=== PATIENT | male | born 1985 | race Two or more races ===

== ENCOUNTER 2019-05-16 07:10 | Emergency (ER) | payer MEDICAID ==
[2019-05-16 07:48] LABS: BILIRUBIN,URINE NEGATIVE (NEGATIVE); GLUCOSE, URINE (UA) NEGATIVE (NEGATIVE); KETONES,URINE (UA) NEGATIVE (NEGATIVE); LEUKOCYTE ESTERASE, URINE NEGATIVE (NEGATIVE); NITRITE,URINE NEGATIVE (NEGATIVE); OCCULT BLOOD,URINE NEGATIVE (NEGATIVE); PH,URINE 5.5 PH (5.0-7.5); PROTEIN,URINE NEGATIVE (NEGATIVE); UROBILINOGEN,URINE 0.2 (NORMAL) E.U./dL (NORMAL)
[2019-05-16 07:50] LABS: CLARITY,URINE CLEAR (CLEAR)
[2019-05-16 07:57] LABS: BASOPHILS # (AUTO) 0.1 10^3/uL (0.0-0.1); BASOPHILS % (AUTO) 0.6 %; EOSINOPHILS # (AUTO) 0.3 10^3/uL (0.0-0.7); EOSINOPHILS % (AUTO) 3.2 %; HGB - HEMOGLOBIN 15.7 g/dL (14.0-18.0); LYMPHOCYTES # (AUTO) 2.8 10^3/uL (1.5-3.5); LYMPHOCYTES % (AUTO) 27.7 %; MEAN CORPUSCULAR HGB CONC 34.2 g/dL (32.0-36.0); MEAN CORPUSCULAR VOLUME 84.7 fL (80.0-94.0); MEAN PLATELET VOLUME 9.7 fL (7.4-11.4); MONOCYTES # (AUTO) 0.7 10^3/uL (0.0-1.0); NEUTROPHILS # (AUTO) 6.1 10^3/uL (1.5-6.6); NEUTROPHILS % (AUTO) 60.9 %; PLT - PLATELET COUNT 317 10^3/uL (130-450); RED BLOOD COUNT 5.42 10^6/uL (4.70-6.10); RED CELL DISTRIBUTION WIDTH 12.7 % (12.0-15.0)
[2019-05-16] MEDS ORDERED: SODIUM CHLORIDE 0.9% 1,000 ML IV ONE (08:04)
[2019-05-16] MEDS ORDERED: KETOROLAC 30 MG/ML VIAL IVP STA (08:04)
[2019-05-16] MEDS ORDERED: ONDANSETRON 4 MG/2 ML VIAL IVP STA (08:05)
--- NOTE | 2019-05-16 08:07 | ED Physician Documentation ---
PD HPI ABD PAIN - Stated complaint Stated Complaint: ABD PAIN - Chief complaint Chief Complaint: Abd Pain - History obtained from History obtained from: Patient, Family - History of Present Illness Timing - onset: How many days ago (2) Timing - duration: Days (2) Timing - details: Abrupt onset, Still present Quality: Sharp, Pain Location: LUQ, LLQ Radiation: Left flank Improved by: Other (standing) Worsened by: Position Associated symptoms: Nausea. No: Fever, Vomiting, Diarrhea, Constipation Similar symptoms before: Diagnosis (kidney stone) Recently seen: Not recently seen - Additional information Additional information: 34-year-old male with a history of kidney stone in both kidneys requiring lithotripsy and stent placement has developed acute left flank pain radiating down into his groin and relieved by standing partially and worsen by certain positions. The patient states that his pain is similar but different to what is had from prior kidney stone. He has had 8 mm stone previously requiring lithotripsy. Review of Systems Constitutional: denies: Fever Eyes: denies: Decreased vision Ears: denies: Ear pain Nose: denies: Congestion Throat: denies: Sore throat Cardiac: denies: Chest pain / pressure, Palpitations Respiratory: denies: Dyspnea, Cough GI: reports: Abdominal Pain, Nausea. denies: Vomiting, Constipation, Diarrhea : denies: Dysuria, Frequency PD PAST MEDICAL HISTORY - Past Medical History Cardiovascular: None Respiratory: None Neuro: None Endocrine/Autoimmune: None GI: Crohn's disease : Kidney stones HEENT: None Psych: None Derm: None - Past Surgical History General: Cholecystectomy Ortho: Rotator cuff repair, Arthroscopic surgery - Present Medications Home Medications: Ambulatory Orders Medication Instructions Recorded Confirmed Ondansetron Odt [Zofran] 4 mg TL Q6H PRN #10 tablet 05/16/19 Oxycodone HCl/Acetaminophen 1 - 2 each PO Q6H PRN #14 tablet 05/16/19 [Percocet 5-325 mg Tablet] Tamsulosin HCl [Flomax] 0.4 mg PO DAILY #7 cap.er.24h 05/16/19 - Allergies Allergies/Adverse Reactions: Allergies Allergy/AdvReac Type Severity Reaction Status Date / Time codeine AdvReac Unknown Verified 05/16/19 07:22 cyclobenzaprine AdvReac Cramps Verified 05/16/19 07:22 [From Flexeril] morphine AdvReac Cramps Verified 05/16/19 07:22 - Social History Does the pt smoke?: No Smoking Status: Never smoker Does the pt drink ETOH?: No Does the pt have substance abuse?: No - Immunizations Immunizations: TDAP current <10years PD ED PE NORMAL - Vitals Vital signs reviewed: Yes (hypertensive ) - General General: Alert and oriented X 3, Well developed/nourished, Other (Appears to be in pain with medicaid biller tone flattened affect) - HEENT HEENT: Atraumatic, PERRL, EOMI - Neck Neck: Supple, no meningeal sign - Cardiac Cardiac: RRR, No murmur - Respiratory Respiratory: No respiratory distress, Clear bilaterally - Abdomen Abdomen: Normal bowel sounds, Soft, Non tender, Non distended, No organomegaly - Back Back: No CVA TTP, No spinal TTP - Derm Derm: Normal color, Warm and dry, No rash - Extremities Extremities: No deformity, No edema - Neuro Neuro: Alert and oriented X 3, senior net c developer 2-12 intact, No motor deficit, No sensory deficit, Normal speech Eye Opening: Spontaneous Motor: Obeys Commands Verbal: Oriented GCS Score: 15 - Psych Psych: Normal mood, Normal affect Results - Vitals Vitals: Vital Signs - 24 hr 05/16/19 05/16/19 05/16/19 07:15 07:56 08:51 Temperature 36.8 C 36.8 C Heart Rate 100 78 97 Respiratory 18 16 16 Rate Blood Pressure 159/109 H 158/103 H 147/92 H O2 Saturation 100 99 98 Oxygen O2 Source Room air - Labs Labs: Laboratory Tests 05/16/19 05/16/19 05/16/19 07:40 07:45 07:45 WBC 10.0 RBC 5.42 Hgb 15.7 Hct 45.9 MCV 84.7 MCH 29.0 MCHC 34.2 RDW 12.7 Plt Count 317 MPV 9.7 Neut # (Auto) 6.1 Lymph # (Auto) 2.8 [place] # (Auto) 0.7 Eos # (Auto) 0.3 Baso # (Auto) 0.1 Absolute Nucleated RBC 0.00 Nucleated RBC % 0.0 Sodium 139 Potassium 3.6 Chloride 105 Carbon Dioxide 25 Anion Gap 9.0 BUN 20 Creatinine 1.0 Estimated GFR (MDRD) 86 L Glucose 109 H Calcium 9.2 Total Bilirubin 0.6 AST 19 ALT 29 Alkaline Phosphatase 66 Total Protein 7.3 Albumin 4.2 Globulin 3.1 Albumin/Globulin Ratio 1.4 Lipase 39 Urine Color YELLOW Urine Clarity CLEAR Urine pH 5.5 Ur Specific [place] >=1.030 H Urine Protein NEGATIVE Urine Glucose (UA) NEGATIVE Urine Ketones NEGATIVE Urine Occult Blood NEGATIVE Urine Nitrite NEGATIVE Urine Bilirubin NEGATIVE Urine Urobilinogen 0.2 (NORMAL) Ur Leukocyte Esterase NEGATIVE Ur Microscopic Review NOT INDICATED Urine Culture Comments NOT INDICATED - Rads (name of study) CT ab/pel Radiology: Prelim report reviewed (Impression: 1. Mild left hydro-ureteral nephrosis down to a 10 x 12 mm calcification at L2 level. 2 Nonobstructing right renal calcifications 5 and 9 mm), EMP read indepedently, See rad report Procedures - Bedside sono Bedside sono by EMP: These bedside ultrasound the left kidney is imaged it is sonographically nontender and there is hydronephrosis present. PD MEDICAL DECISION MAKING - ED course Complexity details: reviewed results, re-evaluated patient, considered differential, d/w patient, d/w family ED course: 34-year-old male with history of kidney stone has acute left flank pain with evidence of hydronephrosis on bedside ultrasound. An IV is begun he is administered saline Toradol and Zofran and a CT scan of the abdomen pelvis is undertaken. Departure - Departure Disposition: 01 Home, Self Care Clinical Impression: Ureterolithiasis Condition: Stable Instructions: ED Stone Renal W Colic Follow-Up: Jeanie Mansfield MD [Physician No Access] - Zuleyma Augustine MD [Provider Admit Priv/Credential] - Prescriptions: Ondansetron Odt [Zofran] 4 mg TL Q6H PRN #10 tablet PRN Reason: Nausea / Vomiting Oxycodone HCl/Acetaminophen [Percocet 5-325 mg Tablet] 1 - 2 each PO Q6H PRN #14 tablet PRN Reason: pain Tamsulosin HCl [Flomax] 0.4 mg PO DAILY #7 cap.er.24h Forms: Activity restrictions
[2019-05-16 08:11] LABS: ALBUMIN 4.2 g/dL (3.2-5.5); ALBUMIN/GLOBULIN RATIO 1.4 (1.0-2.2); BILIRUBIN,TOTAL 0.6 mg/dL (0.2-1.0); CALCIUM 9.2 mg/dL (8.5-10.3); TOTAL PROTEIN 7.3 g/dL (6.7-8.2)
--- NOTE | 2019-05-16 08:46 | CT Report ---
Reason: L flank pain with hydro on bedside Procedure Date: 05/16/2019 Accession Number: [id number] / [id number] Procedure: CT - Abdomen/Pelvis WO CPT Code: FULL RESULT: EXAM: CT ABDOMEN AND PELVIS EXAM DATE: 05/16/2019 08:29 AM. CLINICAL HISTORY: L flank pain with hydro on bedside. COMPARISONS: None. TECHNIQUE: Routine helical CT imaging was performed through the abdomen and pelvis. IV contrast: None. Enteric contrast: No. Reconstructions: Coronal and sagittal. In accordance with CT protocol optimization, one or more of the following dose reduction techniques were utilized for this exam: automated exposure control, adjustment of mA and/or KV based on patient size, or use of iterative reconstructive technique. FINDINGS: Lung Bases: Small hiatal hernia Liver: Normal. No masses. Gallbladder/Bile Ducts: Post cholecystectomy Spleen: Normal. Pancreas: Normal. Adrenal Glands: Normal. Kidneys: Right kidney: Nonobstructing calcifications 9 mm lower pole, 5 mm midpole. Left kidney: Mild hydroureteronephrosis down to a 10 x 12 mm calcification at L2 level. Peritoneal Cavity/Bowel: Tiny fat-containing umbilical hernia. No free fluid, free air or adenopathy. No masses or acute inflammatory process. The appendix is well visualized and normal. Pelvic Organs: Normal. The bladder and visualized pelvic organs are within normal limits. Vasculature: No aneurysms or other significant abnormality. Bones: No significant abnormality. Bone islands pelvis Other: None. IMPRESSION: 1. Mild left hydroureteronephrosis down to a 10 x 12 mm calcification at L2 level. 2. Nonobstructing right renal calcification 5 mm and 9 mm RADIA
[2019-05-16] MEDS ORDERED: HYDROmorphone 1 MG/ML CARPUJECT IVP STA (08:52)
[2019-05-16] MEDS ORDERED: DEXAMETHASONE 10 MG/ML VIAL IVP STA (08:52)
[2019-05-16 09:49] VITALS: BP 145/93
== END 2019-05-16 09:48 | disposition home or self-care (01) ==
LOC: ED 07:10
DX: N13.2 Hydronephrosis with renal and ureteral calculous obstruction (principal)
CPT/HCPCS: 36415; 74176; 80053; 81003; 83690; 85025; 96361; 96374; 96375; 99284; 99285; J1170; 81001; 87086

== ENCOUNTER 2019-05-21 15:01 | Emergency (ER) | payer MEDICAID ==
[2019-05-21] MEDS ORDERED: LIDOCAINE-MPF 2% 9 ML in SODIUM CHLORIDE 0.9% 50 ML IV STA (15:46)
[2019-05-21] MEDS ORDERED: KETOROLAC 30 MG/ML VIAL IVP STA (15:46)
[2019-05-21] MEDS ORDERED: SODIUM CHLORIDE 0.9% 1,000 ML IV ONE (15:47)
[2019-05-21] MEDS ORDERED: ONDANSETRON 4 MG/2 ML VIAL IVP STA (15:47)
[2019-05-21 15:52] LABS: BASOPHILS # (AUTO) 0.1 10^3/uL (0.0-0.1); BASOPHILS % (AUTO) 0.5 %; EOSINOPHILS # (AUTO) 0.3 10^3/uL (0.0-0.7); EOSINOPHILS % (AUTO) 2.9 %; HGB - HEMOGLOBIN 15.7 g/dL (14.0-18.0); LYMPHOCYTES # (AUTO) 2.4 10^3/uL (1.5-3.5); LYMPHOCYTES % (AUTO) 24.3 %; MEAN CORPUSCULAR HEMOGLOBIN 28.9 pg (27.0-31.0); MEAN CORPUSCULAR HGB CONC 34.2 g/dL (32.0-36.0); MEAN CORPUSCULAR VOLUME 84.5 fL (80.0-94.0); MEAN PLATELET VOLUME 9.9 fL (7.4-11.4); MONOCYTES # (AUTO) 0.5 10^3/uL (0.0-1.0); MONOCYTES % (AUTO) 4.6 %; NEUTROPHILS # (AUTO) 6.6 10^3/uL (1.5-6.6); NEUTROPHILS % (AUTO) 67.3 %; PLT - PLATELET COUNT 300 10^3/uL (130-450); RED BLOOD COUNT 5.43 10^6/uL (4.70-6.10); RED CELL DISTRIBUTION WIDTH 12.9 % (12.0-15.0); WHITE BLOOD COUNT 9.8 x10^3/uL (4.8-10.8)
[2019-05-21 15:53] LABS: BILIRUBIN,URINE NEGATIVE (NEGATIVE); GLUCOSE, URINE (UA) NEGATIVE (NEGATIVE); KETONES,URINE (UA) NEGATIVE (NEGATIVE); LEUKOCYTE ESTERASE, URINE NEGATIVE (NEGATIVE); NITRITE,URINE NEGATIVE (NEGATIVE); OCCULT BLOOD,URINE NEGATIVE (NEGATIVE); PH,URINE 6.5 PH (5.0-7.5); PROTEIN,URINE NEGATIVE (NEGATIVE); UROBILINOGEN,URINE 0.2 (NORMAL) E.U./dL (NORMAL)
[2019-05-21 15:58] LABS: CLARITY,URINE CLEAR (CLEAR)
[2019-05-21 16:04] LABS: ALBUMIN 4.3 g/dL (3.2-5.5); ALBUMIN/GLOBULIN RATIO 1.3 (1.0-2.2); BILIRUBIN,TOTAL 0.8 mg/dL (0.2-1.0); CALCIUM 9.3 mg/dL (8.5-10.3); CREATININE 0.9 mg/dL (0.6-1.2); TOTAL PROTEIN 7.5 g/dL (6.7-8.2)
[2019-05-21] MEDS ORDERED: HYDROmorphone 1 MG/ML CARPUJECT IVP STA (16:34)
--- NOTE | 2019-05-21 17:47 | ED Physician Documentation ---
History of Present Illness - Stated complaint Stated Complaint: LOWER BACK PX - Chief complaint Chief Complaint: Abd Pain - History obtained from History obtained from: Patient - History of Present Illness Timing: How many weeks ago (1) Pain level max: 10 Pain level now: 10 - Additonal information Additional information: Left flank pain. Scheduled to see urology on Wednesday. No fevers. Nausea but no vomiting. States pain is not controlled. Diagnosed with a kidney stone, 10 x 12 mm. Has had lithotripsy in the past. Nothing makes it better or worse. Review of Systems Constitutional: denies: Fever Throat: denies: Sore throat Cardiac: denies: Chest pain / pressure Respiratory: denies: Cough GI: reports: Nausea. denies: Abdominal Pain, Vomiting Skin: denies: Rash Musculoskeletal: denies: Neck pain, Back pain Neurologic: denies: Headache PD PAST MEDICAL HISTORY - Past Medical History Past Medical History: Yes Cardiovascular: None Respiratory: None Neuro: None Endocrine/Autoimmune: None GI: Crohn's disease : Kidney stones HEENT: None Psych: None Derm: None - Past Surgical History Past Surgical History: Yes General: Cholecystectomy Ortho: Rotator cuff repair, Arthroscopic surgery - Present Medications Home Medications: Ambulatory Orders Medication Instructions Recorded Confirmed Ondansetron Odt [Zofran] 4 mg TL Q6H PRN #10 tablet 05/16/19 Oxycodone HCl/Acetaminophen 1 - 2 each PO Q6H PRN #14 tablet 05/16/19 [Percocet 5-325 mg Tablet] Tamsulosin HCl [Flomax] 0.4 mg PO DAILY #7 cap.er.24h 05/16/19 HYDROmorphone [Dilaudid] 2 mg PO Q4H PRN #14 tablet 05/21/19 Promethazine [Phenergan] 25 mg PO Q6H PRN #10 tab 05/21/19 - Allergies Allergies/Adverse Reactions: Allergies Allergy/AdvReac Type Severity Reaction Status Date / Time codeine AdvReac Unknown Verified 05/16/19 07:22 cyclobenzaprine AdvReac Cramps Verified 05/16/19 07:22 [From Flexeril] morphine AdvReac Cramps Verified 05/16/19 07:22 - Social History Does the pt smoke?: No Smoking Status: Never smoker Does the pt drink ETOH?: No Does the pt have substance abuse?: No - Immunizations Immunizations: TDAP current <10years PD ED PE NORMAL - Vitals Vital signs reviewed: Yes - General General: Alert and oriented X 3, No acute distress, Well developed/nourished - HEENT HEENT: PERRL, Moist mucous membranes - Neck Neck: Supple, no meningeal sign - Cardiac Cardiac: RRR, Strong equal pulses - Respiratory Respiratory: No respiratory distress, Clear bilaterally - Abdomen Abdomen: Soft, Non tender, Non distended - Back Back: No CVA TTP, No spinal TTP - Derm Derm: Warm and dry - Extremities Extremities: No edema - Neuro Neuro: Alert and oriented X 3 - Psych Psych: Normal mood, Normal affect Results - Vitals Vitals: Vital Signs - 24 hr 05/21/19 05/21/19 15:09 17:54 Temperature 37.1 C 37 C Heart Rate 104 H 100 Respiratory 18 16 Rate Blood Pressure 149/94 H 153/78 H O2 Saturation 97 96 Oxygen O2 Source Room air - Labs Labs: Laboratory Tests 05/21/19 05/21/19 05/21/19 15:28 15:28 15:30 WBC 9.8 RBC 5.43 Hgb 15.7 Hct 45.9 MCV 84.5 MCH 28.9 MCHC 34.2 RDW 12.9 Plt Count 300 MPV 9.9 Neut # (Auto) 6.6 Lymph # (Auto) 2.4 [place] # (Auto) 0.5 Eos # (Auto) 0.3 Baso # (Auto) 0.1 Absolute Nucleated RBC 0.00 Nucleated RBC % 0.0 Sodium 138 Potassium 3.5 Chloride 99 L Carbon Dioxide 27 Anion Gap 12.0 BUN 13 Creatinine 0.9 Estimated GFR (MDRD) 97 Glucose 139 H Calcium 9.3 Total Bilirubin 0.8 AST 22 ALT 28 Alkaline Phosphatase 66 Total Protein 7.5 Albumin 4.3 Globulin 3.2 Albumin/Globulin Ratio 1.3 Lipase 41 Urine Color YELLOW Urine Clarity CLEAR Urine pH 6.5 Ur Specific [place] 1.015 Urine Protein NEGATIVE Urine Glucose (UA) NEGATIVE Urine Ketones NEGATIVE Urine Occult Blood NEGATIVE Urine Nitrite NEGATIVE Urine Bilirubin NEGATIVE Urine Urobilinogen 0.2 (NORMAL) Ur Leukocyte Esterase NEGATIVE Ur Microscopic Review NOT INDICATED Urine Culture Comments NOT INDICATED PD MEDICAL DECISION MAKING - ED course Complexity details: reviewed old records, reviewed results, re-evaluated patient, considered differential, d/w patient, d/w family ED course: 34-year-old male presents the emergency department with a known left-sided ureteral stone 10 x 12 mm. Pain not controlled at home. Pain is well controlled here. No signs of infection. I discussed calling urology for him but he would like to go home and keep his appointment on Wednesday. He is welcome to return if he changes his mind. No evidence of sepsis. Patient and family counseled regarding signs and symptoms for which I believe and urgent re- evaluation would be necessary. Patient with good understanding of and agreement to plan and is comfortable going home at this time This document was made in part using voice recognition software. While efforts are made to proofread this document, sound alike and grammatical errors may occur. Departure - Departure Disposition: Home, Self Care Clinical Impression: Ureterolithiasis Condition: Good Instructions: ED Stone Renal W Colic Follow-Up: your,doctor in 2 days [Other] Prescriptions: HYDROmorphone [Dilaudid] 2 mg PO Q4H PRN #14 tablet PRN Reason: flank pain Promethazine [Phenergan] 25 mg PO Q6H PRN #10 tab PRN Reason: Nausea / Vomiting Comments: Return if you worsen. Follow-up with urology on Wednesday as scheduled. Return especially for uncontrolled pain or fevers or vomiting. Discharge Date/Time: 05/21/19 18:14
[2019-05-21 17:55] VITALS: BP 153/78
== END 2019-05-21 18:14 | disposition home or self-care (01) ==
LOC: ED 15:01
DX: N20.1 Calculus of ureter (principal)
CPT/HCPCS: 36415; 80053; 81003; 83690; 85025; 96361; 96365; 96375; 99284; J1170; J7040; 81001; 87086

== ENCOUNTER 2019-05-23 11:25 | Emergency (ER) | payer MEDICAID ==
[2019-05-23 11:56] LABS: BASOPHILS % (AUTO) 0.4 %; EOSINOPHILS # (AUTO) 0.3 10^3/uL (0.0-0.7); EOSINOPHILS % (AUTO) 2.7 %; HGB - HEMOGLOBIN 15.8 g/dL (14.0-18.0); LYMPHOCYTES # (AUTO) 2.5 10^3/uL (1.5-3.5); LYMPHOCYTES % (AUTO) 25.4 %; MEAN CORPUSCULAR HEMOGLOBIN 28.8 pg (27.0-31.0); MEAN CORPUSCULAR HGB CONC 33.9 g/dL (32.0-36.0); MEAN CORPUSCULAR VOLUME 84.9 fL (80.0-94.0); MEAN PLATELET VOLUME 9.5 fL (7.4-11.4); MONOCYTES # (AUTO) 0.7 10^3/uL (0.0-1.0); MONOCYTES % (AUTO) 6.7 %; NEUTROPHILS # (AUTO) 6.4 10^3/uL (1.5-6.6); NEUTROPHILS % (AUTO) 64.3 %; PLT - PLATELET COUNT 290 10^3/uL (130-450); RED BLOOD COUNT 5.49 10^6/uL (4.70-6.10); RED CELL DISTRIBUTION WIDTH 12.8 % (12.0-15.0); WHITE BLOOD COUNT 9.9 x10^3/uL (4.8-10.8)
[2019-05-23 12:11] LABS: ALBUMIN 4.2 g/dL (3.2-5.5); ALBUMIN/GLOBULIN RATIO 1.3 (1.0-2.2); BILIRUBIN,TOTAL 0.6 mg/dL (0.2-1.0); CALCIUM 9.8 mg/dL (8.5-10.3); CREATININE 0.8 mg/dL (0.6-1.2); TOTAL PROTEIN 7.5 g/dL (6.7-8.2)
[2019-05-23] MEDS ORDERED: ONDANSETRON 4 MG/2 ML VIAL IVP STA (13:30)
[2019-05-23] MEDS ORDERED: HYDROmorphone 1 MG/ML CARPUJECT IVP STA ×3 (13:30→15:11)
[2019-05-23] MEDS ORDERED: SODIUM CHLORIDE 0.9% 1,000 ML IV ONE (13:30)
[2019-05-23] MEDS ORDERED: KETOROLAC 30 MG/ML VIAL IVP STA (13:30)
--- NOTE | 2019-05-23 13:32 | ED Physician Documentation ---
PD HPI ABD PAIN - Stated complaint Stated Complaint: SIDE PX - Chief complaint Chief Complaint: Abd Pain - History obtained from History obtained from: Patient - History of Present Illness Timing - onset: Other (34-year-old gentleman with history of Crohn's and renal colic, last p.o. intake at 930 this morning, he is been having trouble with a left flank pain caused by a stone for the last week. He is been seen here twice so far, pain medications have not been helping too much. He had a CAT scan on the of this month showing a 10 x 12 m millimeter proximal ureteral stone on the left. He is nauseous.) Review of Systems Ten Systems: 10 systems reviewed and negative Constitutional: denies: Fever, Chills Cardiac: denies: Chest pain / pressure, Palpitations Respiratory: denies: Dyspnea, Cough PD PAST MEDICAL HISTORY - Past Medical History Cardiovascular: None Respiratory: None Neuro: None Endocrine/Autoimmune: None GI: Crohn's disease : Kidney stones HEENT: None Psych: None Derm: None - Past Surgical History Past Surgical History: Yes General: Cholecystectomy Ortho: Rotator cuff repair, Arthroscopic surgery - Present Medications Home Medications: Ambulatory Orders Medication Instructions Recorded Confirmed Ondansetron Odt [Zofran] 4 mg TL Q6H PRN #10 tablet 05/16/19 Oxycodone HCl/Acetaminophen 1 - 2 each PO Q6H PRN #14 tablet 05/16/19 [Percocet 5-325 mg Tablet] Tamsulosin HCl [Flomax] 0.4 mg PO DAILY #7 cap.er.24h 05/16/19 HYDROmorphone [Dilaudid] 2 mg PO Q4H PRN #14 tablet 05/21/19 Promethazine [Phenergan] 25 mg PO Q6H PRN #10 tab 05/21/19 - Allergies Allergies/Adverse Reactions: Allergies Allergy/AdvReac Type Severity Reaction Status Date / Time codeine AdvReac Unknown Verified 05/16/19 07:22 cyclobenzaprine AdvReac Cramps Verified 05/16/19 07:22 [From Flexeril] morphine AdvReac Cramps Verified 05/23/19 11:32 - Social History Does the pt smoke?: No Smoking Status: Never smoker Does the pt drink ETOH?: No Does the pt have substance abuse?: No - Family History Family history: reports: Non contributory - Immunizations Immunizations: TDAP current <10years PD ED PE NORMAL - Vitals Vital signs reviewed: Yes - General General: Alert and oriented X 3, No acute distress - HEENT HEENT: PERRL, EOMI - Neck Neck: Supple, no meningeal sign, No bony TTP - Cardiac Cardiac: RRR, No murmur - Respiratory Respiratory: No respiratory distress, Clear bilaterally - Abdomen Abdomen: Soft, Non tender - Back Back: Other (L flank TTP) - Derm Derm: Normal color, Warm and dry - Extremities Extremities: No edema, No calf tenderness / cord - Neuro Neuro: Alert and oriented X 3, Normal speech Results - Vitals Vitals: Vital Signs - 24 hr 05/23/19 05/23/19 11:31 13:52 Temperature 36.8 C Heart Rate 101 H 96 Respiratory 20 16 Rate Blood Pressure 175/108 H 132/109 H O2 Saturation 99 96 Oxygen O2 Source Room air - Labs Labs: Laboratory Tests 05/23/19 05/23/19 05/23/19 11:49 11:49 13:31 WBC 9.9 RBC 5.49 Hgb 15.8 Hct 46.6 MCV 84.9 MCH 28.8 MCHC 33.9 RDW 12.8 Plt Count 290 MPV 9.5 Neut # (Auto) 6.4 Lymph # (Auto) 2.5 [place] # (Auto) 0.7 Eos # (Auto) 0.3 Baso # (Auto) 0.0 Absolute Nucleated RBC 0.00 Nucleated RBC % 0.0 Sodium 140 Potassium 3.9 Chloride 105 Carbon Dioxide 27 Anion Gap 8.0 BUN 15 Creatinine 0.8 Estimated GFR (MDRD) 111 Glucose 120 H Calcium 9.8 Total Bilirubin 0.6 AST 19 ALT 28 Alkaline Phosphatase 65 Total Protein 7.5 Albumin 4.2 Globulin 3.3 Albumin/Globulin Ratio 1.3 Lipase 42 Urine Color YELLOW Urine Clarity CLOUDY Urine pH 7.0 Ur Specific [place] 1.020 Urine Protein NEGATIVE Urine Glucose (UA) NEGATIVE Urine Ketones NEGATIVE Urine Occult Blood LARGE H Urine Nitrite NEGATIVE Urine Bilirubin NEGATIVE Urine Urobilinogen 0.2 (NORMAL) Ur Leukocyte Esterase NEGATIVE Urine RBC TNTC H Urine WBC 0-3 Ur Squamous Epith Cells RARE Squamous Urine Bacteria Many H Urine Sperm PRESENT Ur Microscopic Review INDICATED Urine Culture Comments INDICATED PD MEDICAL DECISION MAKING - ED course ED course: 34-year-old gentleman with a known large left ureteral stone measuring 10 x 12 mm presents for the third time in a week with intractable pain. Pain med Was ordered and we called [facility] for potential transfer, they were full and we subsequently called [facility]. I spoke with FLORIN Wen there, she wanted to discuss the case with her urologist and she did. She stated to me at 2:35 PM that she had spoken with Dr. Raines and we could certainly refer the patient to them but they would not accept him in transfer as they "do not take call for us." I discussed with her that the patient has an emergency medical condition as defined by EMTALA (uncontrolled pain) and recommended they reconsider. Dr. Raines subsequently called me back at 242, clarified that they do not take transfers but we could approach this through the hospitalist service through the emergency department. The hospitalist service at [facility] was called. Subsequently accepted by Dr. Ware to the hospitalist service at 2:50 PM and cobras were completed. Needs transfer to higher level of care given intractable renal colic and lack of urology inpatient treatment here. Departure - Departure Disposition: 02 Transfer Acute Care Hosp Clinical Impression: Ureterolithiasis Condition: Fair
[2019-05-23 13:36] LABS: BILIRUBIN,URINE NEGATIVE (NEGATIVE); GLUCOSE, URINE (UA) NEGATIVE (NEGATIVE); KETONES,URINE (UA) NEGATIVE (NEGATIVE); LEUKOCYTE ESTERASE, URINE NEGATIVE (NEGATIVE); NITRITE,URINE NEGATIVE (NEGATIVE); OCCULT BLOOD,URINE LARGE (NEGATIVE); PROTEIN,URINE NEGATIVE (NEGATIVE); UROBILINOGEN,URINE 0.2 (NORMAL) E.U./dL (NORMAL)
[2019-05-23 13:37] LABS: CLARITY,URINE CLOUDY (CLEAR)
[2019-05-23 14:43] LABS: BACTERIA,URINE Many /HPF (None Seen); RBC,URINE TNTC /HPF (0-5); SQUAMOUS EPITHELIAL CELL,UR RARE Squamous (<= Few)
[2019-05-23 14:44] LABS: SPERM,URINE PRESENT
[2019-05-23 15:21] VITALS: BP 140/87
== END 2019-05-23 15:51 | disposition short-term general hospital (02) ==
LOC: ED 11:25
DX: N20.1 Calculus of ureter (principal); Z87.19 Personal history of other diseases of the digestive system
CPT/HCPCS: 36415; 80053; 81001; 83690; 85025; 87086; 96361; 96374; 96375; 96376; 99283; 99285; J1170; 81003

== ENCOUNTER 2019-05-23 15:54 | Outpatient (CLI) | payer MEDICAID | END 2019-05-23 15:55 | disposition short-term general hospital (02) | LOC: EMS 15:54 | PROVIDERS: ATTEND Surgery | DX: N20.0 Calculus of kidney (principal) | CPT/HCPCS: A0425; A0426; A0999 ==

== ENCOUNTER 2019-05-29 18:19 | Outpatient (CLI) | payer MEDICAID | END 2019-05-29 18:20 | disposition short-term general hospital (02) | LOC: EMS 18:19 | PROVIDERS: ATTEND Surgery | DX: R10.9 Unspecified abdominal pain (principal); R11.10 Vomiting, unspecified | CPT/HCPCS: A0425; A0429; A0999 ==

== ENCOUNTER 2019-06-09 08:00 | Outpatient (CLI) | payer MEDICAID ==
[2019-06-09 18:43] LABS: BASOPHILS # (AUTO) 0.1 10^3/uL (0.0-0.1); BASOPHILS % (AUTO) 1.1 %; EOSINOPHILS # (AUTO) 0.7 10^3/uL (0.0-0.7); EOSINOPHILS % (AUTO) 7.5 %; HGB - HEMOGLOBIN 15.4 g/dL (14.0-18.0); LYMPHOCYTES # (AUTO) 2.4 10^3/uL (1.5-3.5); LYMPHOCYTES % (AUTO) 23.9 %; MEAN CORPUSCULAR HEMOGLOBIN 29.4 pg (27.0-31.0); MEAN CORPUSCULAR VOLUME 86.6 fL (80.0-94.0); MEAN PLATELET VOLUME 10.2 fL (7.4-11.4); MONOCYTES # (AUTO) 0.7 10^3/uL (0.0-1.0); MONOCYTES % (AUTO) 6.9 %; NEUTROPHILS # (AUTO) 5.9 10^3/uL (1.5-6.6); NEUTROPHILS % (AUTO) 59.9 %; PLT - PLATELET COUNT 409 10^3/uL (130-450); RED BLOOD COUNT 5.23 10^6/uL (4.70-6.10); RED CELL DISTRIBUTION WIDTH 12.4 % (12.0-15.0); WHITE BLOOD COUNT 9.9 x10^3/uL (4.8-10.8)
[2019-06-09 19:02] LABS: ALBUMIN 4.2 g/dL (3.2-5.5); ALBUMIN/GLOBULIN RATIO 1.3 (1.0-2.2); BILIRUBIN,TOTAL 0.7 mg/dL (0.2-1.0); CALCIUM 9.5 mg/dL (8.5-10.3); TOTAL PROTEIN 7.5 g/dL (6.7-8.2)
== END 2019-06-09 23:59 | disposition home or self-care (01) ==
LOC: LAB.N 08:00
PROVIDERS: ATTEND Family Medicine
DX: N28.9 Disorder of kidney and ureter, unspecified (principal)
CPT/HCPCS: 36415; 80053; 85025

== ENCOUNTER 2019-08-23 19:11 | Outpatient (CLI) | payer MEDICAID ==
--- NOTE | 2019-08-23 20:28 | Ultrasound Report ---
Reason: CALCULUS OF URETER AND KIDNEY Procedure Date: 08/23/2019 Accession Number: [id number] / [id number] Procedure: US - Retroperitoneal CPT Code: Final Report FULL RESULT: EXAM: RENAL ULTRASOUND EXAM DATE: 08/23/2019 07:55 PM. CLINICAL HISTORY: CALCULUS OF URETER AND KIDNEY. COMPARISON: ABDOMEN/PELVIS W/O 05/16/2019 8:22 AM. TECHNIQUE: Real-time scanning was performed with static images obtained. FINDINGS: Right Kidney: 14 cm. Normal echotexture with no shadowing stones, contour-deforming masses, or hydronephrosis. Left Kidney: 13 cm. Normal echotexture with no shadowing stones, contour-deforming masses, or hydronephrosis. Bladder: Bilateral jets seen. The prevoid bladder volume was 220 cc. The postvoid bladder volume was 5 cc. Other: None. IMPRESSION: Negative renal ultrasound. No stones or hydronephrosis seen by ultrasound. RADIA
== END 2019-08-23 19:12 | disposition home or self-care (01) ==
LOC: DI 19:11
PROVIDERS: ATTEND Family Medicine
DX: N20.1 Calculus of ureter (principal); N20.0 Calculus of kidney
CPT/HCPCS: 76770

== ENCOUNTER 2019-09-05 08:00 | Outpatient (CLI) | payer MEDICAID | END 2019-09-05 23:59 | disposition home or self-care (01) | LOC: LAB.R 08:00 | PROVIDERS: ATTEND Physician Assistant Medical | DX: R50.9 Fever, unspecified (principal) | CPT/HCPCS: 87275; 87276 ==

== ENCOUNTER 2020-01-09 17:05 | Emergency (ER) | payer MEDICAID ==
[2020-01-09 17:25] LABS: BILIRUBIN,URINE NEGATIVE (NEGATIVE); CLARITY,URINE CLEAR (CLEAR); GLUCOSE, URINE (UA) NEGATIVE (NEGATIVE); KETONES,URINE (UA) NEGATIVE (NEGATIVE); LEUKOCYTE ESTERASE, URINE NEGATIVE (NEGATIVE); NITRITE,URINE NEGATIVE (NEGATIVE); OCCULT BLOOD,URINE NEGATIVE (NEGATIVE); PROTEIN,URINE NEGATIVE (NEGATIVE); UROBILINOGEN,URINE 0.2 (NORMAL) E.U./dL (NORMAL)
[2020-01-09 17:30] LABS: BASOPHILS # (AUTO) 0.1 10^3/uL (0.0-0.1); BASOPHILS % (AUTO) 0.6 %; EOSINOPHILS # (AUTO) 0.2 10^3/uL (0.0-0.7); EOSINOPHILS % (AUTO) 2.2 %; HGB - HEMOGLOBIN 16.6 g/dL (14.0-18.0); LYMPHOCYTES # (AUTO) 2.3 10^3/uL (1.5-3.5); LYMPHOCYTES % (AUTO) 25.3 %; MEAN CORPUSCULAR HGB CONC 33.7 g/dL (32.0-36.0); MEAN CORPUSCULAR VOLUME 83.1 fL (80.0-94.0); MEAN PLATELET VOLUME 9.5 fL (7.4-11.4); MONOCYTES # (AUTO) 0.7 10^3/uL (0.0-1.0); MONOCYTES % (AUTO) 7.3 %; NEUTROPHILS # (AUTO) 5.8 10^3/uL (1.5-6.6); NEUTROPHILS % (AUTO) 64.2 %; PLT - PLATELET COUNT 302 10^3/uL (130-450); RED BLOOD COUNT 5.92 10^6/uL (4.70-6.10); RED CELL DISTRIBUTION WIDTH 12.7 % (12.0-15.0); WHITE BLOOD COUNT 9.1 x10^3/uL (4.8-10.8)
[2020-01-09 17:43] LABS: ALBUMIN 4.5 g/dL (3.2-5.5); ALBUMIN/GLOBULIN RATIO 1.3 (1.0-2.2); BILIRUBIN,TOTAL 0.9 mg/dL (0.2-1.0); TOTAL PROTEIN 7.9 g/dL (6.7-8.2)
[2020-01-09] MEDS ORDERED: KETOROLAC 30 MG/ML VIAL IVP STA (17:56)
[2020-01-09] MEDS ORDERED: TAMSULOSIN 0.4 MG CAPSULE PO STA (17:57)
--- NOTE | 2020-01-09 18:00 | ED Physician Documentation ---
PD HPI MALE - Stated complaint Stated Complaint: BI LAT FLANK PX - Chief complaint Chief Complaint: Abd Pain - History obtained from History obtained from: Patient (34-year-old patient comes in today with a history of kidney stones bilateral sides that has required lithotripsy in the past and stent placement x4. His last stents were removed approximately 6 months ago, and he has not had any problems with stones since then. He has had a 3-day history of right-sided flank pain, feels like it is a stone moving down again. He has noted some blood in his urine. He has had bouts of chills and nausea with the right flank pain. No other concerns today) Review of Systems Ten Systems: 10 systems reviewed and negative Constitutional: reports: Chills, Sweats. denies: Fever Eyes: reports: Reviewed and negative Ears: reports: Reviewed and negative Nose: reports: Reviewed and negative Throat: reports: Reviewed and negative Cardiac: reports: Reviewed and negative Respiratory: reports: Reviewed and negative GI: reports: Reviewed and negative : reports: Hematuria Skin: reports: Reviewed and negative Musculoskeletal: reports: Reviewed and negative PD PAST MEDICAL HISTORY - Past Medical History Cardiovascular: Hypertension Respiratory: None Neuro: None Endocrine/Autoimmune: None GI: Crohn's disease : Kidney stones HEENT: None Psych: None Musculoskeletal: None Derm: None - Past Surgical History Past Surgical History: Yes General: Cholecystectomy Ortho: Rotator cuff repair, Arthroscopic surgery - Present Medications Home Medications: Ambulatory Orders Medication Instructions Recorded Confirmed No Known Home Medications 01/09/20 01/09/20 - Allergies Allergies/Adverse Reactions: Allergies Allergy/AdvReac Type Severity Reaction Status Date / Time codeine AdvReac Unknown Verified 01/09/20 17:08 cyclobenzaprine AdvReac Cramps Verified 01/09/20 17:08 [From Flexeril] morphine AdvReac Cramps Verified 01/09/20 17:08 - Social History Does the pt smoke?: No Smoking Status: Never smoker Does the pt drink ETOH?: No Does the pt have substance abuse?: No - Immunizations Immunizations are current?: Yes Immunizations: TDAP current <10years PD ED PE NORMAL - General General: Alert and oriented X 3, No acute distress, Well developed/nourished - HEENT HEENT: Atraumatic, PERRL, EOMI, Ears normal, Moist mucous membranes - Neck Neck: Supple, no meningeal sign, No adenopathy - Cardiac Cardiac: RRR, No murmur, No gallop - Respiratory Respiratory: No respiratory distress, Clear bilaterally - Abdomen Abdomen: Normal bowel sounds, Soft, Non tender, Non distended - Back Back: No: No CVA TTP - Derm Derm: Normal color, Warm and dry, No rash - Neuro Neuro: Alert and oriented X 3, addiction therapist 2-12 intact Eye Opening: Spontaneous Motor: Obeys Commands Verbal: Oriented GCS Score: 15 - Psych Psych: Normal mood, Normal affect PD ED PE EXPANDED - Back Back: CVA TTP right Results - Vitals Vitals: Vital Signs - 24 hr 01/09/20 01/09/20 01/09/20 17:08 17:28 19:03 Temperature 36.7 C Heart Rate 96 96 79 Respiratory 18 18 18 Rate Blood Pressure 146/85 H 153/95 H 144/89 H O2 Saturation 98 97 96 Oxygen O2 Source Room air - Labs Labs: Laboratory Tests 01/09/20 01/09/20 01/09/20 17:20 17:22 17:22 WBC 9.1 RBC 5.92 Hgb 16.6 Hct 49.2 MCV 83.1 MCH 28.0 MCHC 33.7 RDW 12.7 Plt Count 302 MPV 9.5 Neut # (Auto) 5.8 Lymph # (Auto) 2.3 [place] # (Auto) 0.7 Eos # (Auto) 0.2 Baso # (Auto) 0.1 Absolute Nucleated RBC 0.00 Nucleated RBC % 0.0 Sodium 139 Potassium 4.0 Chloride 106 Carbon Dioxide 26 Anion Gap 7.0 BUN 18 Creatinine 1.0 Estimated GFR (MDRD) 86 L Glucose 96 Calcium 9.0 Total Bilirubin 0.9 AST 23 ALT 33 Alkaline Phosphatase 62 Total Protein 7.9 Albumin 4.5 Globulin 3.4 Albumin/Globulin Ratio 1.3 Lipase 37 Urine Color YELLOW Urine Clarity CLEAR Urine pH 7.0 Ur Specific [place] 1.020 Urine Protein NEGATIVE Urine Glucose (UA) NEGATIVE Urine Ketones NEGATIVE Urine Occult Blood NEGATIVE Urine Nitrite NEGATIVE Urine Bilirubin NEGATIVE Urine Urobilinogen 0.2 (NORMAL) Ur Leukocyte Esterase NEGATIVE Ur Microscopic Review NOT INDICATED Urine Culture Comments NOT INDICATED - Rads (name of study) No standard instances Radiology: Final report received (Impression: 1 cm nonobstructing left renal calculus. no ureteric calculi or hydronephrosis. ) PD MEDICAL DECISION MAKING - ED course Complexity details: reviewed results, d/w patient ED course: Reviewed the patient's abdominal CT, which was negative for right renal or ureteral stones. There is a 1 cm calculi noted in the left kidney, with no obstruction. The kidneys do not show any hydronephrosis either. Patient's blood work came back normal today did not have an elevated white count, liver enzymes were not elevated INR. His urinalysis came back clean. At this point time unsure what the right flank pain is from. We will have the patient follow- up with his primary care physician later this week for further evaluation. Discussed with the patient when to return to ER, if he develops fevers, worsening right flank pain, noted blood in his urine, worsening chills and fe herman. Departure - Departure Disposition: 01 Home, Self Care Clinical Impression: Acute flank pain Condition: Good Instructions: ED Stone Renal W Colic Comments: Your blood test came back normal today, no elevated white blood cells to indicate an infection. Urinalysis came back as normal. And your CAT scan of your abdomen and pelvis did not show any kidney stones on the right side. You have a 1 cm kidney stone in the left kidney which is not causing any obstruction. Pain control the best you can with Tylenol and the medications you have at home. I want you to follow-up with your primary care physician later this week for further evaluation. Return return to ER if you develop a fever, worsening chills, worsening right flank pain, nausea, vomiting, or blood in your urine.
[2020-01-09] MEDS ORDERED: ONDANSETRON 4 MG/2 ML VIAL IVP STA (18:12)
[2020-01-09] MEDS ORDERED: HYDROmorphone 1 MG/ML CARPUJECT IVP STA ×2 (18:12→19:47)
--- NOTE | 2020-01-09 19:12 | CT Report ---
Reason: kidney stones, right flank pain.PMHX kidney stones Procedure Date: 01/09/2020 Accession Number: [id number] / [id number] Procedure: CT - Abdomen/Pelvis WO CPT Code: Final Report FULL RESULT: EXAM: CT ABDOMEN AND PELVIS (CT KUB) EXAM DATE: 01/09/2020 06:51 PM. CLINICAL HISTORY: Kidney stones, right flank pain. PMHX kidney stones. COMPARISONS: ABDOMEN/PELVIS W/O 05/16/2019 8:22 AM. TECHNIQUE: Routine helical CT imaging was performed through the abdomen and pelvis without intravenous contrast. Lack of intravenous contrast can at times limit scan sensitivity, particularly for the detection of intraparenchymal and vascular pathology. Reconstructions: Coronal and sagittal. In accordance with CT protocol optimization, one or more of the following dose reduction techniques were utilized for this exam: automated exposure control, adjustment of mA and/or KV based on patient size, or use of iterative reconstructive technique. FINDINGS: ABDOMEN: Lung Bases: Incompletely included lower lungs are grossly clear. Heart size is within normal limits. No basilar effusions. Liver: Unremarkable. Gallbladder/Bile Ducts: Status post cholecystectomy. Visualized biliary tree is normal caliber. Spleen: Unremarkable. Pancreas: Unremarkable. Adrenal Glands: Unremarkable. Kidneys: Right kidney: No calculi or hydronephrosis. Left kidney: 1 cm nonobstructing inferior pole calculus. No ureteric calculi or hydronephrosis. Peritoneum/Mesentery/Bowel: No free fluid, free air, or collection. No intestinal obstruction or inflammation. The appendix is within normal limits. Lymph nodes: No mesenteric, periportal, or retroperitoneal lymphadenopathy. PELVIS: The bladder is unremarkable for the degree of distention. Prostate is present. No pelvic lymphadenopathy. Retroperitoneum: Abdominal aorta is nonaneurysmal. Bones: No suspicious osseous lesions. IMPRESSION: 1 cm nonobstructing left renal calculus. No ureteric calculi or hydronephrosis. RADIA
[2020-01-09 20:48] VITALS: BP 162/98
== END 2020-01-09 20:51 | disposition home or self-care (01) ==
LOC: ED 17:05
DX: R10.9 Unspecified abdominal pain (principal); R11.0 Nausea; N20.0 Calculus of kidney; I10 Essential (primary) hypertension; Z87.442 Personal history of urinary calculi; Z87.19 Personal history of other diseases of the digestive system
CPT/HCPCS: 36415; 74176; 80053; 81003; 83690; 85025; 96374; 96375; 96376; 99284; A9270; J1170; 81001; 87086

== ENCOUNTER 2020-04-19 11:30 | Emergency (ER) | payer MEDICAID ==
[2020-04-19 11:53] LABS: BILIRUBIN,URINE NEGATIVE (NEGATIVE); GLUCOSE, URINE (UA) NEGATIVE (NEGATIVE); KETONES,URINE (UA) NEGATIVE (NEGATIVE); LEUKOCYTE ESTERASE, URINE NEGATIVE (NEGATIVE); NITRITE,URINE NEGATIVE (NEGATIVE); OCCULT BLOOD,URINE NEGATIVE (NEGATIVE); PROTEIN,URINE NEGATIVE (NEGATIVE); UROBILINOGEN,URINE 0.2 (NORMAL) E.U./dL (NORMAL)
[2020-04-19 11:55] LABS: CLARITY,URINE CLEAR (CLEAR)
[2020-04-19 12:04] LABS: BASOPHILS # (AUTO) 0.1 10^3/uL (0.0-0.1); BASOPHILS % (AUTO) 0.8 %; EOSINOPHILS # (AUTO) 0.3 10^3/uL (0.0-0.7); EOSINOPHILS % (AUTO) 3.1 %; HGB - HEMOGLOBIN 16.1 g/dL (14.0-18.0); LYMPHOCYTES # (AUTO) 2.5 10^3/uL (1.5-3.5); LYMPHOCYTES % (AUTO) 31.3 %; MEAN CORPUSCULAR HEMOGLOBIN 29.4 pg (27.0-31.0); MEAN CORPUSCULAR HGB CONC 34.3 g/dL (32.0-36.0); MEAN CORPUSCULAR VOLUME 85.9 fL (80.0-94.0); MEAN PLATELET VOLUME 9.8 fL (7.4-11.4); MONOCYTES # (AUTO) 0.6 10^3/uL (0.0-1.0); MONOCYTES % (AUTO) 7.2 %; NEUTROPHILS # (AUTO) 4.6 10^3/uL (1.5-6.6); NEUTROPHILS % (AUTO) 57.2 %; PLT - PLATELET COUNT 303 10^3/uL (130-450); RED BLOOD COUNT 5.47 10^6/uL (4.70-6.10); RED CELL DISTRIBUTION WIDTH 13.1 % (12.0-15.0)
[2020-04-19 12:14] LABS: ALBUMIN 4.5 g/dL (3.2-5.5); ALBUMIN/GLOBULIN RATIO 1.5 (1.0-2.2); BILIRUBIN,TOTAL 0.9 mg/dL (0.2-1.0); CALCIUM 9.4 mg/dL (8.5-10.3); CREATININE 0.9 mg/dL (0.6-1.2); TOTAL PROTEIN 7.6 g/dL (6.7-8.2)
[2020-04-19] MEDS ORDERED: ONDANSETRON ODT 4 MG TABLET TL STA (15:08)
--- NOTE | 2020-04-19 15:08 | ED Physician Documentation ---
PD HPI ABD PAIN - Stated complaint Stated Complaint: R SIDE PX - Chief complaint Chief Complaint: Abd Pain - History obtained from History obtained from: Patient - History of Present Illness Timing - onset: How many days ago (3) Timing - duration: Days (3) Timing - details: Gradual onset, Still present Quality: Cramping, Sharp, Pain Location: RLQ Radiation: Right flank Improved by: Laying still Worsened by: Position, Palpation Similar symptoms before: Diagnosis (kidney stone) Recently seen: Clinic - Additional information Additional information: 35-year-old male with history of Crohn's disease in remission and kidney stones for which he has had to have stents and lithotripsy done has developed some right-sided flank pain. He feels that this is most consistent with what he has had previously with kidney stone. He did not have any blood in his urine. He did have some tenderness on exam and he was referred here to the emergency department for imaging. Review of Systems Constitutional: denies: Fever Eyes: denies: Decreased vision Ears: denies: Ear pain Nose: denies: Congestion Throat: denies: Sore throat Cardiac: denies: Chest pain / pressure, Palpitations Respiratory: denies: Dyspnea, Cough GI: reports: Abdominal Pain, Nausea, Diarrhea : denies: Dysuria, Frequency Skin: denies: Rash Musculoskeletal: denies: Neck pain, Back pain, Extremity pain Neurologic: denies: Generalized weakness, Focal weakness, Numbness PD PAST MEDICAL HISTORY - Past Medical History Cardiovascular: Hypertension Respiratory: None Neuro: None Endocrine/Autoimmune: None GI: Crohn's disease : Kidney stones HEENT: None Psych: None Musculoskeletal: None Derm: None - Past Surgical History Past Surgical History: Yes General: Cholecystectomy Ortho: Rotator cuff repair, Arthroscopic surgery - Present Medications Home Medications: Ambulatory Orders Medication Instructions Recorded Confirmed HYDROcod/ACETAM 5/325 [[place] 5/325] 1 - 2 each PO Q6H PRN #14 tablet 04/19/20 predniSONE [Prednisone] 40 mg PO DAILY #10 tablet 04/19/20 - Allergies Allergies/Adverse Reactions: Allergies Allergy/AdvReac Type Severity Reaction Status Date / Time codeine AdvReac Unknown Verified 04/19/20 11:37 cyclobenzaprine AdvReac Cramps Verified 04/19/20 11:37 [From Flexeril] morphine AdvReac Cramps Verified 04/19/20 11:37 - Social History Does the pt smoke?: No Smoking Status: Never smoker Does the pt drink ETOH?: No Does the pt have substance abuse?: No - Immunizations Immunizations are current?: Yes Immunizations: TDAP current <10years PD ED PE NORMAL - Vitals Vital signs reviewed: Yes (hypertensive ) - General General: Alert and oriented X 3, No acute distress, Well developed/nourished - HEENT HEENT: Atraumatic, PERRL, EOMI - Neck Neck: Supple, no meningeal sign, No bony TTP - Cardiac Cardiac: RRR, No murmur - Respiratory Respiratory: No respiratory distress, Clear bilaterally - Abdomen Abdomen: Soft, Other (tenderness in the right mid abdomen is reproducible. This is above McBurney's and below Mixon's in this patient without a gallbladder. ) - Back Back: No CVA TTP, No spinal TTP - Derm Derm: Normal color, Warm and dry, No rash - Extremities Extremities: No deformity, No edema, No calf tenderness / cord - Neuro Neuro: Alert and oriented X 3, manufacturing development engineer 2-12 intact, No motor deficit, No sensory deficit, Normal speech Eye Opening: Spontaneous Motor: Obeys Commands Verbal: Oriented GCS Score: 15 - Psych Psych: Normal mood, Normal affect Results - Vitals Vitals: Vital Signs - 24 hr 04/19/20 04/19/20 04/19/20 11:36 14:49 17:23 Temperature 36.8 C 36.6 C Heart Rate 86 82 94 Respiratory 20 16 16 Rate Blood Pressure 151/100 H 142/98 H 160/99 H O2 Saturation 99 99 98 Oxygen O2 Source Room air - Labs Labs: Laboratory Tests 04/19/20 04/19/20 04/19/20 11:40 11:58 11:58 WBC 8.0 RBC 5.47 Hgb 16.1 Hct 47.0 MCV 85.9 MCH 29.4 MCHC 34.3 RDW 13.1 Plt Count 303 MPV 9.8 Neut # (Auto) 4.6 Lymph # (Auto) 2.5 [place] # (Auto) 0.6 Eos # (Auto) 0.3 Baso # (Auto) 0.1 Absolute Nucleated RBC 0.00 Nucleated RBC % 0.0 Sodium 139 Potassium 3.9 Chloride 105 Carbon Dioxide 25 Anion Gap 9.0 BUN 20 Creatinine 0.9 Estimated GFR (MDRD) 97 Glucose 95 Calcium 9.4 Total Bilirubin 0.9 AST 27 ALT 39 Alkaline Phosphatase 70 Total Protein 7.6 Albumin 4.5 Globulin 3.1 Albumin/Globulin Ratio 1.5 Lipase 50 Urine Color YELLOW Urine Clarity CLEAR Urine pH 6.0 Ur Specific [place] 1.025 Urine Protein NEGATIVE Urine Glucose (UA) NEGATIVE Urine Ketones NEGATIVE Urine Occult Blood NEGATIVE Urine Nitrite NEGATIVE Urine Bilirubin NEGATIVE Urine Urobilinogen 0.2 (NORMAL) Ur Leukocyte Esterase NEGATIVE Ur Microscopic Review NOT INDICATED Urine Culture Comments NOT INDICATED - Rads (name of study) CT Radiology: Prelim report reviewed (Impression: 1. Appendix is normal. 2. nonobstructing left renal crest desiccation. 3. Nondistended versus minimally thickened small bowel loop in the right lower quadrant, overall nonspecific. Small focus of inflammation cannot be definitely excluded.), EMP read indepedently, See rad report PD MEDICAL DECISION MAKING - ED course Complexity details: reviewed results, re-evaluated patient, considered differential, d/w patient ED course: 3 days of pain and nausea with diarrhea in a patient with history of Crohn's disease has a segment of small intestine that appears acutely inflamed and I will place him on a short course of prednisone as well as some pain medication. Departure - Departure Disposition: 01 Home, Self Care Clinical Impression: Acute Crohn's disease Qualifiers: Digestive disease complication type: without complication Qualified Code(s): K50.90 - Crohn's disease, unspecified, without complications Condition: Stable Instructions: Disease Crohn Dc Follow-Up: AUTUMN SANTOS MD [Primary Care Provider] - Prescriptions: HYDROcod/ACETAM 5/325 [[place] 5/325] 1 - 2 each PO Q6H PRN #14 tablet PRN Reason: Pain predniSONE [Prednisone] 40 mg PO DAILY #10 tablet
[2020-04-19] MEDS ORDERED: KETOROLAC 60 MG/2 ML VIAL IM STA (16:02)
--- NOTE | 2020-04-19 16:30 | CT Report ---
PROCEDURE: Abdomen/Pelvis WO INDICATIONS: R sided abdominal pain TECHNIQUE: Noncontrast 5 mm thick sections acquired from the diaphragms to the symphysis. 5 mm coronal and sagi ttal reformats were then performed. For radiation dose reduction, the following was used: automated exposure control, adjustment of mA and/or kV according to patient size. COMPARISON: None. FINDINGS: Image quality: Excellent. ABDOMEN: Lung bases: Lung bases are clear. Heart size is normal. Solid organs: Liver is mildly enlarged with steatosis. Gallbladder has been removed Pancreas is no rmal in contours. No adrenal nodules. Kidneys are normal in size. There is an 8 mm inferior left re nal pole calcification, Hounsfield units 568. No obstruction. Peritoneum and bowel: Unenhanced bowel loops are nonobstructive. There is a questionable minimal thi ckening versus incomplete distention small bowel loop within the right lower quadrant. No free fluid or air. Appendix is normal. Nodes and vessels: No retroperitoneal or mesenteric adenopathy by size criteria. Aorta and inferior vena cava are normal in caliber. Miscellaneous: No ventral hernias. PELVIS: Genitourinary: Bladder wall thickness is normal. Miscellaneous: Minimal fat-containing inguinal hernias are present. Bones: No suspicious bony lesions. No vertebral body compression fractures. IMPRESSION: 1. Appendix is normal. 2. Nonobstructing left renal crest desiccation. 3. Nondistended versus minimally thickened small bowel loop in the right lower quadrant, overall nons pecific. Small focus of inflammation cannot be definitively excluded. Reviewed by: Diamond Magaña MD on 04/19/2020 4:29 PM PDT Approved by: Diamond Magaña MD on 04/19/2020 4:29 PM PDT Station ID: [id number]
[2020-04-19 17:24] VITALS: BP 160/99
== END 2020-04-19 17:31 | disposition home or self-care (01) ==
LOC: ED 11:30
DX: K50.00 Crohn's disease of small intestine without complications (principal); I10 Essential (primary) hypertension; Z90.49 Acquired absence of other specified parts of digestive tract
CPT/HCPCS: 36415; 74176; 80053; 81003; 83690; 85025; 96372; 99284; Q0162; 81001; 87086

== ENCOUNTER 2020-04-30 10:00 | Emergency (ER) | payer MEDICAID ==
[2020-04-30] MEDS ORDERED: SODIUM CHLORIDE 0.9% 1,000 ML IV STA (10:29)
[2020-04-30] MEDS ORDERED: HYDROmorphone 1 MG/ML CARPUJECT IVP STA ×2 (10:29→12:32)
[2020-04-30] MEDS ORDERED: ONDANSETRON 4 MG/2 ML VIAL IVP STA (10:29)
--- NOTE | 2020-04-30 10:34 | ED Physician Documentation ---
PD HPI ABD PAIN - Stated complaint Stated Complaint: RT FLANK PX - Chief complaint Chief Complaint: Abd Pain - History obtained from History obtained from: Patient - History of Present Illness Timing - onset: How many weeks ago (2) Timing - duration: Weeks (2) Timing - details: Gradual onset, Still present Quality: Sharp, Pain Location: RLQ Improved by: Laying still Worsened by: Eating, Moving, Position, Palpation Associated symptoms: Nausea, Diarrhea Similar symptoms before: Diagnosis (chrons disease with bowel obstruction) Recently seen: Clinic, Emergency Dept - Additional information Additional information: 35-year-old male with a history of Crohn's disease and kidney stones has developed pain in the right side of his abdomen about 2 weeks ago and this pain has been persistent despite a course of prednisone and despite the use of narcotic pain reliever. The patient states that he is just not getting much relief with the pain medication and he did not feel that the prednisone helped. He did get into see his primary in follow-up was put on extended course of prednisone and today is referred back to the emergency department with persistent symptoms and feeling that he may be obstructed. He indicates that previously he has had an admission for 1 week into the hospital with obstructive symptoms while he was in [place] when his Crohn's was first diagnosed by biopsy. Review of Systems Constitutional: reports: Fatigue. denies: Fever Eyes: denies: Decreased vision Ears: denies: Ear pain Nose: denies: Rhinorrhea / runny nose, Congestion Throat: denies: Sore throat Cardiac: denies: Chest pain / pressure, Palpitations Respiratory: denies: Dyspnea, Cough GI: reports: Abdominal Pain, Nausea, Diarrhea : denies: Dysuria, Frequency Skin: denies: Rash Musculoskeletal: denies: Neck pain, Back pain, Extremity pain Neurologic: denies: Generalized weakness, Focal weakness, Numbness PD PAST MEDICAL HISTORY - Past Medical History Cardiovascular: Hypertension Respiratory: None Neuro: None Endocrine/Autoimmune: None GI: Crohn's disease : Kidney stones HEENT: None Psych: None Musculoskeletal: None Derm: None - Past Surgical History Past Surgical History: Yes General: Cholecystectomy Ortho: Rotator cuff repair, Arthroscopic surgery - Present Medications Home Medications: Ambulatory Orders Medication Instructions Recorded Confirmed HYDROcod/ACETAM 5/325 [[place] 5/325] 1 - 2 each PO Q6H PRN #14 tablet 04/19/20 predniSONE [Prednisone] 40 mg PO DAILY #10 tablet 04/19/20 Dicyclomine [Bentyl] 20 mg PO QID PRN #40 capsule 04/30/20 Hydrocodone/Acetaminophen 1 - 2 each PO Q6H PRN #14 tablet 04/30/20 [Hydrocodone-Acetamin 5-325 mg] predniSONE [Prednisone] 40 mg PO DAILY #14 tablet 04/30/20 - Allergies Allergies/Adverse Reactions: Allergies Allergy/AdvReac Type Severity Reaction Status Date / Time codeine AdvReac Unknown Verified 04/19/20 11:37 cyclobenzaprine AdvReac Cramps Verified 04/19/20 11:37 [From Flexeril] morphine AdvReac Cramps Verified 04/19/20 11:37 - Social History Does the pt smoke?: No Smoking Status: Never smoker Does the pt drink ETOH?: No Does the pt have substance abuse?: No - Immunizations Immunizations are current?: Yes Immunizations: TDAP current <10years PD ED PE NORMAL - Vitals Vital signs reviewed: Yes (hypertensive ) - General General: Alert and oriented X 3, No acute distress, Well developed/nourished - HEENT HEENT: Atraumatic, PERRL - Neck Neck: Supple, no meningeal sign, No bony TTP - Cardiac Cardiac: No murmur, Other (tachy to 110) - Respiratory Respiratory: No respiratory distress, Clear bilaterally - Abdomen Abdomen: Normal bowel sounds, Soft, Non distended, No organomegaly, Other (There is right sided tenderness that is difficult to localize. ) - Back Back: No CVA TTP, No spinal TTP - Derm Derm: Normal color, Warm and dry, No rash - Extremities Extremities: No deformity, No edema, No calf tenderness / cord - Neuro Neuro: Alert and oriented X 3, tester semiconductor packages 2-12 intact, No motor deficit, No sensory deficit, Normal speech Eye Opening: Spontaneous Motor: Obeys Commands Verbal: Oriented GCS Score: 15 - Psych Psych: Normal mood, Normal affect Results - Vitals Vitals: Vital Signs - 24 hr 04/30/20 10:13 Temperature 37.1 C Heart Rate 99 Respiratory 18 Rate Blood Pressure 177/106 H O2 Saturation 97 Oxygen O2 Source Room air - Labs Labs: Laboratory Tests 04/30/20 04/30/20 04/30/20 10:37 10:37 10:40 WBC 16.2 H RBC 5.08 Hgb 15.0 Hct 43.5 MCV 85.6 MCH 29.5 MCHC 34.5 RDW 13.2 Plt Count 285 MPV 9.5 Neut # (Auto) 9.8 H Lymph # (Auto) 4.7 H [place] # (Auto) 1.1 H Eos # (Auto) 0.3 Baso # (Auto) 0.1 Absolute Nucleated RBC 0.00 Nucleated RBC % 0.0 Sodium 141 Potassium 3.3 L Chloride 106 Carbon Dioxide 25 Anion Gap 10.0 BUN 13 Creatinine 1.0 Estimated GFR (MDRD) 86 L Glucose 103 H Lactic Acid 1.5 Calcium 8.6 Total Bilirubin 0.8 AST 16 ALT 22 Alkaline Phosphatase 59 Total Protein 6.9 Albumin 4.0 Globulin 2.9 Albumin/Globulin Ratio 1.4 Lipase 44 Urine Color Urine Clarity Urine pH Ur Specific [place] Urine Protein Urine Glucose (UA) Urine Ketones Urine Occult Blood Urine Nitrite Urine Bilirubin Urine Urobilinogen Ur Leukocyte Esterase Ur Microscopic Review Urine Culture Comments 04/30/20 10:46 WBC RBC Hgb Hct MCV MCH MCHC RDW Plt Count MPV Neut # (Auto) Lymph # (Auto) [place] # (Auto) Eos # (Auto) Baso # (Auto) Absolute Nucleated RBC Nucleated RBC % Sodium Potassium Chloride Carbon Dioxide Anion Gap BUN Creatinine Estimated GFR (MDRD) Glucose Lactic Acid Calcium Total Bilirubin AST ALT Alkaline Phosphatase Total Protein Albumin Globulin Albumin/Globulin Ratio Lipase Urine Color YELLOW Urine Clarity CLEAR Urine pH 6.0 Ur Specific [place] 1.025 Urine Protein NEGATIVE Urine Glucose (UA) NEGATIVE Urine Ketones NEGATIVE Urine Occult Blood TRACE-LYSE Urine Nitrite NEGATIVE Urine Bilirubin NEGATIVE Urine Urobilinogen 0.2 (NORMAL) Ur Leukocyte Esterase NEGATIVE Ur Microscopic Review NOT INDICATED Urine Culture Comments NOT INDICATED - Rads (name of study) kub Radiology: Prelim report reviewed (Impression: 1. Nonspecific, nonobstructing bowel gas pattern. A 6 mm left renal stone.), EMP read indepedently, See rad report Procedures - Bedside sono Bedside sono by EMP: With use of bedside ultrasound the right kidney is imaged it is sonographically nontender and there is no evidence of hydronephrosis. - IVC sono (time) 1030 Bedside IVC sono: IVC measures (cm) (1.57), IVC collapsed c insp (cm) (0.93), Euvolemia PD MEDICAL DECISION MAKING - ED course Complexity details: reviewed old records, reviewed results, re-evaluated patient, considered differential, d/w patient ED course: 35-year-old male with a history of Crohn's disease which has been inactive for years has now developed right-sided abdominal pain and he had CT scan done here 9 days ago demonstrating a loop of small bowel with inflammation. He was treated with prednisone without improvement.He has a recollection when he had this previously of taking a small blue pill every day twice a day with improvement and he took this for about 2 years. I felt we had little left offer Mr. Arce and consulted the GI specialist Dr. Marrero at [facility] in [place]. He recommended the addition of dicyclomine and a follow-up with them in the coming week. The patient is not having signs of obstruction he is having pain and cramping pain will likely benefit from the dicyclomine. He recommends continuing the patient on prednisone. Departure - Departure Disposition: 01 Home, Self Care Clinical Impression: Acute Crohn's disease Qualifiers: Digestive disease complication type: without complication Qualified Code(s): K50.90 - Crohn's disease, unspecified, without complications Condition: Stable Instructions: ED Inflam Bowel Disease Crohn Follow-Up: AUTUMN SANTOS MD [Primary Care Provider] - Katelynn Marrero MD [Physician No Access] - Prescriptions: Dicyclomine [Bentyl] 20 mg PO QID PRN #40 capsule PRN Reason: Pain Hydrocodone/Acetaminophen [Hydrocodone-Acetamin 5-325 mg] 1 - 2 each PO Q6H PRN #14 tablet PRN Reason: Pain predniSONE [Prednisone] 40 mg PO DAILY #14 tablet Forms: Activity restrictions
[2020-04-30 10:45] LABS: BASOPHILS # (AUTO) 0.1 10^3/uL (0.0-0.1); BASOPHILS % (AUTO) 0.4 %; EOSINOPHILS # (AUTO) 0.3 10^3/uL (0.0-0.7); EOSINOPHILS % (AUTO) 1.8 %; LYMPHOCYTES # (AUTO) 4.7 10^3/uL (1.5-3.5); MEAN CORPUSCULAR HEMOGLOBIN 29.5 pg (27.0-31.0); MEAN CORPUSCULAR HGB CONC 34.5 g/dL (32.0-36.0); MEAN CORPUSCULAR VOLUME 85.6 fL (80.0-94.0); MEAN PLATELET VOLUME 9.5 fL (7.4-11.4); MONOCYTES # (AUTO) 1.1 10^3/uL (0.0-1.0); NEUTROPHILS # (AUTO) 9.8 10^3/uL (1.5-6.6); NEUTROPHILS % (AUTO) 60.6 %; PLT - PLATELET COUNT 285 10^3/uL (130-450); RED BLOOD COUNT 5.08 10^6/uL (4.70-6.10); RED CELL DISTRIBUTION WIDTH 13.2 % (12.0-15.0); WHITE BLOOD COUNT 16.2 x10^3/uL (4.8-10.8)
[2020-04-30 10:58] LABS: ALBUMIN/GLOBULIN RATIO 1.4 (1.0-2.2); BILIRUBIN,TOTAL 0.8 mg/dL (0.2-1.0); CALCIUM 8.6 mg/dL (8.5-10.3); TOTAL PROTEIN 6.9 g/dL (6.7-8.2)
[2020-04-30 11:00] LABS: BILIRUBIN,URINE NEGATIVE (NEGATIVE); GLUCOSE, URINE (UA) NEGATIVE (NEGATIVE); KETONES,URINE (UA) NEGATIVE (NEGATIVE); LEUKOCYTE ESTERASE, URINE NEGATIVE (NEGATIVE); NITRITE,URINE NEGATIVE (NEGATIVE); OCCULT BLOOD,URINE TRACE-LYSE (NEGATIVE); PROTEIN,URINE NEGATIVE (NEGATIVE); UROBILINOGEN,URINE 0.2 (NORMAL) E.U./dL (NORMAL)
[2020-04-30 11:02] LABS: CLARITY,URINE CLEAR (CLEAR)
--- NOTE | 2020-04-30 11:27 | XRAY Report ---
PROCEDURE: Abdomen Acute INDICATIONS: CAT down ? obstuction TECHNIQUE: One view chest and two views of the abdomen were acquired. COMPARISON: CT abdomen and pelvis, 01/09/2020 and 04/19/2020 FINDINGS: Surgical changes and devices: None. Chest: Lungs are clear. Heart size is normal. No pleural effusions. No pneumoperitoneum. Abdomen: Bowel gas pattern is nonobstructive. There is possibility of small bowel gas and abundant c olonic gas. There is a 6 mm calcification is into the left kidney, compatible with the stone seen on CT. Visualized solid organ contours appear normal. Bones: No suspicious bony lesions. IMPRESSION: 1. Nonspecific, nonobstructive bowel gas pattern. 2. A 6 mm left renal stone. Reviewed by: Josué Steven MD on 04/30/2020 11:25 AM PDT Approved by: Josué Steven MD on 04/30/2020 11:25 AM PDT Station ID: [id number]
[2020-04-30] MEDS ORDERED: POTASSIUM CHLORIDE 20 MEQ TABLET PO STA (12:16)
[2020-04-30 13:39] VITALS: BP 144/62
== END 2020-04-30 13:35 | disposition home or self-care (01) ==
LOC: ED 10:00
DX: K50.90 Crohn's disease, unspecified, without complications (principal)
CPT/HCPCS: 36415; 74022; 80053; 81003; 83605; 83690; 85025; 96361; 96374; 96376; 99284; A9270; J1170; 81001; 87086

== ENCOUNTER 2020-05-28 05:42 | Emergency (ER) | payer MEDICAID ==
--- NOTE | 2020-05-28 05:49 | ED Physician Documentation ---
PD HPI CHEST PAIN - Stated complaint Stated Complaint: L SIDE CP - History obtained from History obtained from: Patient - History of Present Illness Timing - onset: Yesterday Timing - onset during: Rest Timing - details: Intermittant Pain level max: 5 Pain level now: 0 Quality: Sharp Location: Substernal Radiation: Other (chest pain with LUE paresthesias) Improved by: Nothing Worsened by: Other (no exacerbating factors) Recently seen: Emergency Dept (for unrelated c/o (abdominal pain on previous visit)) - Additional information Additional information: c/o episodic left chest pain, sharp and associated with LUE paresthesias and occasional dyspnea, nausea, vomiting. Episodes last as long as 30 minutes, but typically less. Onset at rest yesterday mid-day. No obvious exacerbating factors although some PO intake seems to exacerbate the chest discomfort. Review of Systems Constitutional: denies: Fever, Chills, Sweats Cardiac: reports: Chest pain / pressure. denies: Palpitations, Pedal edema, Calf pain Respiratory: reports: Dyspnea (intermittent and only with (some) episodes of chest discomfort). denies: Cough, Wheezing GI: reports: Nausea, Vomiting. denies: Abdominal Pain Musculoskeletal: denies: Extremity swelling PD PAST MEDICAL HISTORY - Past Medical History Cardiovascular: Hypertension Respiratory: None Neuro: None Endocrine/Autoimmune: None GI: Crohn's disease : Kidney stones HEENT: None Psych: None Musculoskeletal: None Derm: None - Past Surgical History Past Surgical History: Yes General: Cholecystectomy Ortho: Rotator cuff repair, Arthroscopic surgery - Present Medications Home Medications: Ambulatory Orders Medication Instructions Recorded Confirmed Dicyclomine [Bentyl] 20 mg PO QID PRN #40 capsule 04/30/20 05/28/20 - Allergies Allergies/Adverse Reactions: Allergies Allergy/AdvReac Type Severity Reaction Status Date / Time codeine AdvReac Unknown Verified 04/19/20 11:37 cyclobenzaprine AdvReac Cramps Verified 04/19/20 11:37 [From Flexeril] morphine AdvReac Cramps Verified 04/19/20 11:37 - Social History Does the pt smoke?: No Smoking Status: Never smoker Does the pt drink ETOH?: No Does the pt have substance abuse?: No - Immunizations Immunizations are current?: Yes Immunizations: TDAP current <10years PD ED PE NORMAL - Vitals Vital signs reviewed: Yes - General General: Alert and oriented X 3, No acute distress, Well developed/nourished - Cardiac Cardiac: RRR, No murmur, No gallop, No rub - Respiratory Respiratory: No respiratory distress, Clear bilaterally - Abdomen Abdomen: Soft, Non tender - Extremities Extremities: No edema Results - Vitals Vitals: Vital Signs - 24 hr 05/28/20 05/28/20 05/28/20 05:45 06:27 06:59 Temperature 36.9 C 37.8 C H Heart Rate 102 H 96 97 Respiratory 18 18 20 Rate Blood Pressure 155/103 H 150/94 H 141/103 H O2 Saturation 96 96 95 Oxygen O2 Source Room air - EKG (time done) No standard instances Rate: Rate (enter#) (98) Rhythm: NSR [place]: RAD Intervals: Normal CT QRS: Normal Ischemia: Normal ST segments - Labs Labs: Laboratory Tests 05/28/20 05/28/20 05/28/20 05:58 05:58 05:58 WBC 10.4 RBC 5.52 Hgb 15.9 Hct 47.3 MCV 85.7 MCH 28.8 MCHC 33.6 RDW 13.0 Plt Count 296 MPV 9.5 Neut # (Auto) 5.9 Lymph # (Auto) 3.5 Avery # (Auto) 0.6 Eos # (Auto) 0.3 Baso # (Auto) 0.1 Absolute Nucleated RBC 0.00 Nucleated RBC % 0.0 D-Dimer Sodium 139 Potassium 3.4 L Chloride 106 Carbon Dioxide 24 Anion Gap 9.0 BUN 15 Creatinine 0.9 Estimated GFR (MDRD) 97 Glucose 124 H Calcium 9.2 Total Bilirubin 0.8 AST 16 ALT 28 Alkaline Phosphatase 64 Troponin I High Sens 4.6 Total Protein 7.1 Albumin 4.1 Globulin 3.0 Albumin/Globulin Ratio 1.4 Lipase 64 H 05/28/20 05:58 WBC RBC Hgb Hct MCV MCH MCHC RDW Plt Count MPV Neut # (Auto) Lymph # (Auto) Avery # (Auto) Eos # (Auto) Baso # (Auto) Absolute Nucleated RBC Nucleated RBC % D-Dimer 215.1 Sodium Potassium Chloride Carbon Dioxide Anion Gap BUN Creatinine Estimated GFR (MDRD) Glucose Calcium Total Bilirubin AST ALT Alkaline Phosphatase Troponin I High Sens Total Protein Albumin Globulin Albumin/Globulin Ratio Lipase - Rads (name of study) chest xray Radiology: Prelim report reviewed, See rad report PD MEDICAL DECISION MAKING - ED course Complexity details: reviewed old records, reviewed results, re-evaluated patient, considered differential, d/w patient Departure - Departure Disposition: 01 Home, Self Care Clinical Impression: Chest pain Condition: Good Instructions: ED Chest Pain Atypical Unkn Cause Follow-Up: AUTUMN SANTOS MD [Primary Care Provider] - Discharge Date/Time: 05/28/20 07:11
[2020-05-28 06:06] LABS: BASOPHILS # (AUTO) 0.1 10^3/uL (0.0-0.1); BASOPHILS % (AUTO) 0.5 %; EOSINOPHILS # (AUTO) 0.3 10^3/uL (0.0-0.7); EOSINOPHILS % (AUTO) 2.6 %; HGB - HEMOGLOBIN 15.9 g/dL (14.0-18.0); LYMPHOCYTES # (AUTO) 3.5 10^3/uL (1.5-3.5); LYMPHOCYTES % (AUTO) 33.2 %; MEAN CORPUSCULAR HEMOGLOBIN 28.8 pg (27.0-31.0); MEAN CORPUSCULAR HGB CONC 33.6 g/dL (32.0-36.0); MEAN CORPUSCULAR VOLUME 85.7 fL (80.0-94.0); MEAN PLATELET VOLUME 9.5 fL (7.4-11.4); MONOCYTES # (AUTO) 0.6 10^3/uL (0.0-1.0); MONOCYTES % (AUTO) 6.1 %; NEUTROPHILS # (AUTO) 5.9 10^3/uL (1.5-6.6); NEUTROPHILS % (AUTO) 56.7 %; PLT - PLATELET COUNT 296 10^3/uL (130-450); RED BLOOD COUNT 5.52 10^6/uL (4.70-6.10); WHITE BLOOD COUNT 10.4 x10^3/uL (4.8-10.8)
[2020-05-28 06:19] LABS: ALBUMIN 4.1 g/dL (3.2-5.5); ALBUMIN/GLOBULIN RATIO 1.4 (1.0-2.2); BILIRUBIN,TOTAL 0.8 mg/dL (0.2-1.0); CALCIUM 9.2 mg/dL (8.5-10.3); CREATININE 0.9 mg/dL (0.6-1.2); TOTAL PROTEIN 7.1 g/dL (6.7-8.2)
[2020-05-28] MEDS ORDERED: DICYCLOMINE 10 MG CAPSULE PO STA (06:33)
[2020-05-28] MEDS ORDERED: ONDANSETRON ODT 4 MG TABLET TL STA (06:34)
[2020-05-28 07:10] VITALS: BP 141/103
--- NOTE | 2020-05-28 08:29 | XRAY Report ---
PROCEDURE: Chest 2 View X-Ray INDICATIONS: chest pain TECHNIQUE: 2 view(s) of the chest. COMPARISON: None. FINDINGS: Surgical changes and devices: None. Lungs and pleura: No pleural effusions or pneumothorax. Lungs are clear. Mediastinum: Mediastinal contours are normal. Heart size is normal. Bones and chest wall: No suspicious bony abnormalities. Soft tissues appear unremarkable. IMPRESSION: No acute cardiopulmonary disease process. Reviewed by: Mikayla Donovan MD, PhD on 05/28/2020 8:28 AM PDT Approved by: Mikayla Donovan MD, PhD on 05/28/2020 8:28 AM PDT Station ID: [id number]
== END 2020-05-28 07:11 | disposition home or self-care (01) ==
LOC: ED 05:42
DX: R07.9 Chest pain, unspecified (principal)
CPT/HCPCS: 36415; 71046; 80053; 83690; 84484; 85025; 85379; 93005; 99284; A9270; Q0162

== ENCOUNTER 2020-06-03 09:25 | Emergency (ER) | payer MEDICAID ==
[2020-06-03] MEDS ORDERED: LIDOCAINE VISCOUS 2% 15 ML UDC MM STA (10:17)
[2020-06-03] MEDS ORDERED: MAG HYDROX/AL HYDROX/SIMETH 30 ML UDC PO STA (10:17)
[2020-06-03 10:18] LABS: BASOPHILS # (AUTO) 0.1 10^3/uL (0.0-0.1); BASOPHILS % (AUTO) 0.6 %; EOSINOPHILS # (AUTO) 0.3 10^3/uL (0.0-0.7); EOSINOPHILS % (AUTO) 2.5 %; HGB - HEMOGLOBIN 16.1 g/dL (14.0-18.0); LYMPHOCYTES # (AUTO) 3.7 10^3/uL (1.5-3.5); LYMPHOCYTES % (AUTO) 36.7 %; MEAN CORPUSCULAR HEMOGLOBIN 29.7 pg (27.0-31.0); MEAN CORPUSCULAR HGB CONC 34.9 g/dL (32.0-36.0); MEAN CORPUSCULAR VOLUME 84.9 fL (80.0-94.0); MEAN PLATELET VOLUME 9.4 fL (7.4-11.4); MONOCYTES # (AUTO) 0.9 10^3/uL (0.0-1.0); NEUTROPHILS # (AUTO) 5.1 10^3/uL (1.5-6.6); NEUTROPHILS % (AUTO) 50.6 %; PLT - PLATELET COUNT 288 10^3/uL (130-450); RED BLOOD COUNT 5.43 10^6/uL (4.70-6.10); RED CELL DISTRIBUTION WIDTH 12.8 % (12.0-15.0); WHITE BLOOD COUNT 10.1 x10^3/uL (4.8-10.8)
--- NOTE | 2020-06-03 10:19 | ED Physician Documentation ---
PD HPI ABD PAIN - Stated complaint Stated Complaint: BACK/ABD PAIN - Chief complaint Chief Complaint: Abd Pain - History obtained from History obtained from: Patient, Family - History of Present Illness Timing - onset: How many days ago (3) Timing - duration: Days (3) Timing - details: Gradual onset, Still present Quality: Sharp, Pain Location: Epigastric, LUQ Radiation: Chest Improved by: Other (time) Worsened by: Eating Associated symptoms: Nausea, Diarrhea Similar symptoms before: Has not had sx before Recently seen: Emergency Dept - Additional information Additional information: 35-year-old male with a history of Crohn's colitis has developed some epigastric pain and a feeling of fullness after he is eaten. He states that it feels like his food just sits in his stomach and does not go through. He states he has pain until the food does go through and this is each time that he eats. He did try to take some ibuprofen for this but vomited it. He has had increased diarrhea as well. He states this does not feel like his usual Crohn's. He denies use of alcohol and states that he was not using ibuprofen prior to the onset of symptoms. Review of Systems Constitutional: denies: Fever Eyes: denies: Decreased vision Ears: denies: Ear pain Nose: denies: Congestion Throat: denies: Sore throat Cardiac: denies: Chest pain / pressure, Palpitations Respiratory: denies: Dyspnea, Cough GI: reports: Abdominal Pain, Nausea, Vomiting, Diarrhea : denies: Dysuria, Frequency Skin: denies: Rash Musculoskeletal: denies: Neck pain, Back pain, Extremity pain Neurologic: denies: Generalized weakness, Focal weakness, Numbness PD PAST MEDICAL HISTORY - Past Medical History Cardiovascular: Hypertension Respiratory: None Neuro: None Endocrine/Autoimmune: None GI: Crohn's disease : Kidney stones HEENT: None Psych: None Musculoskeletal: None Derm: None - Past Surgical History Past Surgical History: Yes General: Cholecystectomy Ortho: Rotator cuff repair, Arthroscopic surgery - Present Medications Home Medications: Ambulatory Orders Medication Instructions Recorded Confirmed Dicyclomine [Bentyl] 20 mg PO QID PRN #40 capsule 04/30/20 05/28/20 Sucralfate [Carafate] 1 gm PO ACHS #60 tablet 06/03/20 - Allergies Allergies/Adverse Reactions: Allergies Allergy/AdvReac Type Severity Reaction Status Date / Time codeine AdvReac Unknown Verified 06/03/20 09:37 cyclobenzaprine AdvReac Cramps Verified 06/03/20 09:37 [From Flexeril] morphine AdvReac Cramps Verified 06/03/20 09:37 - Social History Does the pt smoke?: No Smoking Status: Never smoker Does the pt drink ETOH?: No Does the pt have substance abuse?: No - Immunizations Immunizations are current?: Yes Immunizations: TDAP current <10years PD ED PE NORMAL - Vitals Vital signs reviewed: Yes (Hypertensive) - General General: Alert and oriented X 3, No acute distress, Well developed/nourished - HEENT HEENT: Atraumatic, PERRL, EOMI - Neck Neck: Supple, no meningeal sign, No bony TTP - Cardiac Cardiac: RRR, No murmur - Respiratory Respiratory: No respiratory distress, Clear bilaterally - Abdomen Abdomen: Normal bowel sounds, Soft, Non distended, No organomegaly, Other (Mild epigastric and left upper quadrant tenderness to palpation without guarding or rebound) - Back Back: No CVA TTP, No spinal TTP - Derm Derm: Normal color, Warm and dry, No rash - Extremities Extremities: No deformity, No edema - Neuro Neuro: Alert and oriented X 3, 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, No motor deficit, No sensory deficit, Normal speech Eye Opening: Spontaneous Motor: Obeys Commands Verbal: Oriented GCS Score: 15 - Psych Psych: Normal mood, Normal affect Results - Vitals Vitals: Vital Signs - 24 hr 06/03/20 06/03/20 06/03/20 09:33 09:37 10:00 Temperature 36.3 C L Heart Rate 88 107 H 96 Respiratory 16 16 16 Rate Blood Pressure 147/68 H 175/100 H 168/98 H O2 Saturation 99 99 99 Oxygen O2 Source Room air - Labs Labs: Laboratory Tests 06/03/20 06/03/20 10:12 10:12 WBC 10.1 RBC 5.43 Hgb 16.1 Hct 46.1 MCV 84.9 MCH 29.7 MCHC 34.9 RDW 12.8 Plt Count 288 MPV 9.4 Neut # (Auto) 5.1 Lymph # (Auto) 3.7 H Ed[place] # (Auto) 0.9 Eos # (Auto) 0.3 Baso # (Auto) 0.1 Absolute Nucleated RBC 0.00 Nucleated RBC % 0.0 Sodium 139 Potassium 3.5 Chloride 105 Carbon Dioxide 24 Anion Gap 10.0 BUN 15 Creatinine 0.9 Estimated GFR (MDRD) 97 Glucose 101 H Calcium 9.4 Total Bilirubin 0.6 AST 20 ALT 29 Alkaline Phosphatase 62 Total Protein 7.2 Albumin 4.3 Globulin 2.9 Albumin/Globulin Ratio 1.5 Lipase 41 - Rads (name of study) CT ab/pel w/o Radiology: Prelim report reviewed (Impression: No acute finding to explain abdominal pain. No significant interval change from 04/19/2020 exam.), EMP read indepedently, See rad report PD MEDICAL DECISION MAKING - ED course Complexity details: reviewed old records, reviewed results, re-evaluated patient, considered differential, d/w patient, d/w family ED course: 35-year-old male with a history of Crohn's colitis has developed epigastric and left upper quadrant abdominal pain worse after eating. He does not have improve ment with use of viscous lidocaine and Mylanta. His symptoms are consistent with acute gastritis. A work-up including blood work and CT scan of the abdomen pelvis is without obvious findings of pathology. The patient's pain is mitigated with the use of intravenous Dilaudid. Here in the emergency department he is administered Protonix intravenously and sucralfate orally. I have recommended to the patient that he use Nexium or Pepcid AC regularly and we will write a prescription for the Carafate. He does have pain medication for use at home. I did discuss with the patient cannabis hyperemesis syndrome and he indicates that he does use cannabis but only occasionally. Departure - Departure Disposition: 01 Home, Self Care Clinical Impression: Gastritis Qualifiers: Gastritis type: unspecified gastritis Chronicity: acute Gastritis bleeding: without bleeding Qualified Code(s): K29.00 - Acute gastritis without bleeding Condition: Stable Instructions: ED PUD Vs Gastritis Follow-Up: AUTUMN SANTOS MD [Primary Care Provider] - Prescriptions: Sucralfate [Carafate] 1 gm PO ACHS #60 tablet Comments: Today your symptoms are consistent with an inflammation to the stomach lining and the recommendation is to take something like pepcid or nexium regularly and take the carafate regularly for about 2 weeks.
[2020-06-03 10:34] LABS: ALBUMIN 4.3 g/dL (3.2-5.5); ALBUMIN/GLOBULIN RATIO 1.5 (1.0-2.2); BILIRUBIN,TOTAL 0.6 mg/dL (0.2-1.0); CALCIUM 9.4 mg/dL (8.5-10.3); CREATININE 0.9 mg/dL (0.6-1.2); TOTAL PROTEIN 7.2 g/dL (6.7-8.2)
[2020-06-03] MEDS ORDERED: ONDANSETRON 4 MG/2 ML VIAL IVP STA (10:35)
[2020-06-03] MEDS ORDERED: HYDROmorphone 1 MG/ML CARPUJECT IVP STA ×2 (10:35→11:41)
[2020-06-03] MEDS ORDERED: SODIUM CHLORIDE 0.9% 1,000 ML IV STA (10:35)
[2020-06-03] MEDS ORDERED: IOVERSOL 320 100 ML VIAL IVP ONE ×2 (10:47→11:17)
--- NOTE | 2020-06-03 11:21 | CT Report ---
PROCEDURE: Abdomen/Pelvis W INDICATIONS: Epigastric and left upper quadrant abdominal pain CONTRAST: IV CONTRAST: Optiray 320 ml: 100 PO CONTRAST: *NO PO CONTRAST TECHNIQUE: After the administration of intravenous contrast, 5 mm thick sections acquired from the diaphragms to the symphysis. 5 mm thick coronal and sagittal reformats were acquired. For radiation dose reducti on, the following was used: automated exposure control, adjustment of mA and/or kV according to preet ent size. COMPARISON: 04/19/2020 CT abdomen and pelvis. FINDINGS: Image quality: Excellent. ABDOMEN: Lung bases: Lung bases are clear. Heart size is normal. Solid organs: Liver and spleen are normal in size and enhancement. Gallbladder has been removed. Bi liary system is non dilated. Pancreas enhances normally. No adrenal nodules. Nonobstructing left r enal calculus again noted. Kidneys otherwise unremarkable. Peritoneum and bowel: Bowel loops demonstrate normal wall thickness and caliber. No free fluid or a ir. Nodes and vessels: No retroperitoneal or mesenteric adenopathy by size criteria. Aorta and inferior vena cava are normal in size. Miscellaneous: No ventral hernias. PELVIS: Genitourinary: Bladder wall thickness is normal. Miscellaneous: No inguinal hernias or adenopathy. Bones: No suspicious bony lesions. No vertebral body compression fractures. IMPRESSION: No acute finding or finding to explain abdominal pain. No significant interval change from 04/19/2020 exam. Reviewed by: Nelson Romo MD on 06/03/2020 11:20 AM PDT Approved by: Nelson Romo MD on 06/03/2020 11:20 AM PDT Station ID: [id number]
[2020-06-03] MEDS ORDERED: SUCRALFATE 1 GM/10 ML UDC PO STA (11:56)
[2020-06-03] MEDS ORDERED: PANTOPRAZOLE 40 MG VIAL IVP STA (11:56)
[2020-06-03 12:27] VITALS: BP 175/89
== END 2020-06-03 12:27 | disposition home or self-care (01) ==
LOC: ED 09:25
DX: K29.00 Acute gastritis without bleeding (principal); K50.90 Crohn's disease, unspecified, without complications
CPT/HCPCS: 36415; 74177; 80053; 83690; 85025; 96361; 96374; 96375; 96376; 99284; A9270; J1170; Q9967

== ENCOUNTER 2020-06-29 08:19 | Outpatient (CLI) | payer MEDICAID | END 2020-06-29 08:20 | disposition home or self-care (01) | LOC: LAB 08:19 | PROVIDERS: ATTEND Physician Assistant | DX: Z53.9 Procedure and treatment not carried out, unspecified reason (principal) ==

== ENCOUNTER 2020-07-03 13:47 | Outpatient (CLI) | payer MEDICAID | END 2020-07-03 13:48 | disposition home or self-care (01) | LOC: LAB 13:47 | PROVIDERS: ATTEND Physician Assistant | DX: Z01.818 Encounter for other preprocedural examination (principal); Z20.828 Contact with and (suspected) exposure to other viral communicable diseases; R19.7 Diarrhea, unspecified; K50.911 Crohn's disease, unspecified, with rectal bleeding | CPT/HCPCS: 81599; 87045; 87046; 87427 ==

== ENCOUNTER 2020-08-26 10:30 | Emergency (ER) | payer MEDICAID ==
--- NOTE | 2020-08-26 11:20 | XRAY Report ---
PROCEDURE: Shoulder 3 View LT INDICATIONS: poss dislocation. hx of same TECHNIQUE: 3 views of the shoulder were acquired. COMPARISON: None. FINDINGS: Bones: No fractures or dislocations. No suspicious bony lesions. Visualized ribs appear intact. Soft tissues: No suspicious soft tissue calcifications. IMPRESSION: No fracture. No osseous lesion. If there are persistent symptoms or continued clinical concern for pa thology, then repeat plain film radiographs (7-10 days) or advanced imaging (CT, MR, bone scan) shoul d be considered for further evaluation. Reviewed by: Mikayla Donovan MD, PhD on 08/26/2020 11:19 AM PST Approved by: Mikayla Donovan MD, PhD on 08/26/2020 11:19 AM [facility] Station ID: [id number]
[2020-08-26] MEDS ORDERED: NAPROXEN 250 MG TABLET PO STA (12:10)
--- NOTE | 2020-08-26 12:12 | ED Physician Documentation ---
PD HPI UPPER EXT INJURY - Stated complaint Stated Complaint: LT SHOULDER PX - Chief complaint Chief Complaint: Ext Problem - History obtained from History obtained from: Patient - Additonal information Additional information: 35-year-old gentleman with history of left shoulder problems, had a capsulitis and tendons reattached about 5 years ago. For the last 5 days without specific injury, especially at night he feels like it is popping when he rolls over in his sleep and does certain motions. Pain is focused over the acromioclavicular joint. No recent injury. Denies fevers. Review of Systems Constitutional: reports: Reviewed and negative Ears: reports: Reviewed and negative Nose: reports: Reviewed and negative Throat: reports: Reviewed and negative PD PAST MEDICAL HISTORY - Past Medical History Cardiovascular: Hypertension Respiratory: None Neuro: None Endocrine/Autoimmune: None GI: Crohn's disease : Kidney stones HEENT: None Psych: None Musculoskeletal: None Derm: None - Past Surgical History Past Surgical History: Yes General: Cholecystectomy Ortho: Rotator cuff repair, Arthroscopic surgery - Present Medications Home Medications: Ambulatory Orders Medication Instructions Recorded Confirmed Meloxicam [Mobic] 7.5 mg PO BID PRN #20 tablet 08/26/20 Oxycodone HCl/Acetaminophen 1 - 2 each PO Q6H PRN #10 tablet 08/26/20 [Percocet 5-325 mg Tablet] - Allergies Allergies/Adverse Reactions: Allergies Allergy/AdvReac Type Severity Reaction Status Date / Time codeine AdvReac Unknown Verified 08/26/20 10:52 cyclobenzaprine AdvReac Cramps Verified 08/26/20 10:52 [From Flexeril] morphine AdvReac Cramps Verified 08/26/20 10:52 - Social History Does the pt smoke?: No Smoking Status: Never smoker Does the pt drink ETOH?: No Does the pt have substance abuse?: No - Immunizations Immunizations are current?: Yes Immunizations: TDAP current <10years PD ED PE NORMAL - Vitals Vital signs reviewed: Yes - General General: Alert and oriented X 3, No acute distress - HEENT HEENT: PERRL, EOMI - Neck Neck: Supple, no meningeal sign, No bony TTP - Cardiac Cardiac: RRR, No murmur - Respiratory Respiratory: No respiratory distress, Clear bilaterally - Extremities Extremities: Other (There is no deformity of the left shoulder. He is mildly tender over the AC joint a little more so than the glenohumeral joint. Internal and external rotation is painless. He is only able to abduct to about 90 degrees before he has significant pain.) - Neuro Neuro: Alert and oriented X 3, Normal speech Results - Vitals Vitals: Vital Signs - 24 hr 08/26/20 10:47 Temperature 36.2 C L Heart Rate 80 Respiratory 16 Rate Blood Pressure 152/83 H O2 Saturation 98 Oxygen O2 Source Room air - Rads (name of study) Three-view x-ray of the left shoulder Radiology: EMP read contemporaneously (No acute disease) PD MEDICAL DECISION MAKING - ED course ED course: Pain today consistent with an AC joint arthropathy or tendinitis. He is placed in a sling but only for a couple days for comfort. He is advised to follow-up with his primary care physician for consideration for physical therapy. Departure - Departure Disposition: 01 Home, Self Care Clinical Impression: AC joint arthropathy Condition: Good Record reviewed to determine appropriate education?: Yes Instructions: Arthritis Acromioclavicular Follow-Up: Edie [facility] [Provider Group] Prescriptions: Meloxicam [Mobic] 7.5 mg PO BID PRN #20 tablet PRN Reason: Pain Oxycodone HCl/Acetaminophen [Percocet 5-325 mg Tablet] 1 - 2 each PO Q6H PRN #10 tablet PRN Reason: pain Comments: Do not wear the sling for more than a couple of days, do some gentle range of motion exercises. Follow-up with your primary care physician for consideration for physical therapy and if conservative measures fail for referral to orthopedics.
[2020-08-26 12:29] VITALS: BP 134/95
== END 2020-08-26 12:32 | disposition home or self-care (01) ==
LOC: ED 10:30
DX: M19.012 Primary osteoarthritis, left shoulder (principal); I10 Essential (primary) hypertension
CPT/HCPCS: 73030; 99283; 99284; A9270

== ENCOUNTER 2020-09-26 03:19 | Emergency (ER) | payer MEDICAID ==
--- NOTE | 2020-09-26 04:40 | ED Physician Documentation ---
History of Present Illness - Stated complaint Stated Complaint: LT SHOULDER PX - Chief complaint Chief Complaint: Trauma Ext - History obtained from History obtained from: Patient - History of Present Illness Timing: Enter time (00:15), Today Pain level now: 6 Improved by: rest Worsened by: movement (abduction, flexion) - Additonal information Additional information: c/o sudden onset left shoulder pain when he rolled onto his left side while lying in bed at approximately 12:30 AM. has had similar pain in the past and is being seen outpatient, has upcoming MRI left shoulder . he has rx tramadol but this has not provided adequate relief Review of Systems Musculoskeletal: reports: Joint pain. denies: Neck pain, Back pain, Joint swelling Neurologic: denies: Focal weakness, Numbness PD PAST MEDICAL HISTORY - Past Medical History Past Medical History: Yes Cardiovascular: Hypertension Respiratory: None Neuro: None Endocrine/Autoimmune: None GI: Crohn's disease : Kidney stones HEENT: None Psych: None Musculoskeletal: None Derm: None - Past Surgical History Past Surgical History: Yes General: Cholecystectomy Ortho: Rotator cuff repair, Arthroscopic surgery - Present Medications Home Medications: Ambulatory Orders Medication Instructions Recorded Confirmed Lisinopril [Zestril] 10 mg PO DAILY 09/26/20 09/26/20 Oxycodone HCl/Acetaminophen 1 - 2 each PO Q6H PRN #14 tablet 09/26/20 [Percocet 5-325 mg Tablet] Tramadol HCl [Ultram] 50 mg PO Q6HR PRN 09/26/20 09/26/20 - Allergies Allergies/Adverse Reactions: Allergies Allergy/AdvReac Type Severity Reaction Status Date / Time codeine AdvReac Unknown Verified 09/26/20 03:34 cyclobenzaprine AdvReac Cramps Verified 09/26/20 03:34 [From Flexeril] morphine AdvReac Cramps Verified 09/26/20 03:34 - Social History Does the pt smoke?: No Smoking Status: Never smoker Does the pt drink ETOH?: No Does the pt have substance abuse?: No - Immunizations Immunizations are current?: Yes Immunizations: TDAP current <10years - POLST Patient has POLST: No PD ED PE NORMAL - Vitals Vital signs reviewed: Yes - General General: Alert and oriented X 3, No acute distress, Well developed/nourished - Neck Neck: Supple, no meningeal sign, No bony TTP - Extremities Extremities: No deformity, No edema - Neuro Neuro: No motor deficit, No sensory deficit PD ED PE EXPANDED - Extremities Extremities: Tenderness (anterolateral aspect), Limited ROM, Left shoulder. No: Swelling Results - Vitals Vitals: Oxygen O2 Source Room air - Rads (name of study) left shoulder xrays Radiology: Prelim report reviewed, See rad report PD MEDICAL DECISION MAKING - ED course Complexity details: reviewed old records, reviewed results, re-evaluated patient, considered differential, d/w patient Departure - Departure Disposition: 01 Home, Self Care Clinical Impression: Shoulder pain, left Condition: Good Instructions: ED Sling, ED Shoulder Pain [facility] Follow-Up: Faina Thompson ARNP, [facility] [Primary Care Provider] - Prescriptions: Oxycodone HCl/Acetaminophen [Percocet 5-325 mg Tablet] 1 - 2 each PO Q6H PRN #14 tablet PRN Reason: pain Forms: Activity restrictions Discharge Date/Time: 09/26/20 05:50
[2020-09-26] MEDS ORDERED: oxyCODONE 5 MG TABLET PO STA (05:31)
[2020-09-26 05:46] VITALS: BP 143/88
--- NOTE | 2020-09-26 09:48 | XRAY Report ---
PROCEDURE: Shoulder 3 View LT INDICATIONS: injury/rolled to his L side while in bed TECHNIQUE: 3 views of the shoulder were acquired. COMPARISON: Shoulder x-ray 08/26/2020 FINDINGS: Bones: No fractures or dislocations. No suspicious bony lesions. Visualized ribs appear intact. Soft tissues: No suspicious soft tissue calcifications. IMPRESSION: No visualized acute fracture or dislocation. However, occult injury cannot be excluded. Recommend short interval imaging follow-up in 7-10 days as clinically indicated for additional evalua tion. The above findings are concordant with preliminary report. Reviewed by: Diamond Magaña MD on 09/26/2020 9:47 AM PST Approved by: Diamond Magaña MD on 09/26/2020 9:47 AM PST Station ID: [id number]
== END 2020-09-26 05:50 | disposition home or self-care (01) ==
LOC: ED 03:19
DX: M25.512 Pain in left shoulder (principal); I10 Essential (primary) hypertension
CPT/HCPCS: 73030; 99283; A9270

== ENCOUNTER 2020-10-21 14:08 | Outpatient (CLI) | payer MEDICAID, OTHER ==
--- NOTE | 2020-10-21 16:20 | XRAY Report ---
PROCEDURE: Cervical Spine Complete INDICATIONS: NECK PAIN TECHNIQUE: 5 view(s) of the cervical spine were acquired. COMPARISON: None. FINDINGS: Bones: No fractures or dislocations to the C7-T1 level. The lateral masses of C1 appear intact on t he odontoid view. No suspicious bony lesions. There is straightening with slight reversal cervical curvature. Soft tissues: No prevertebral soft tissue swelling. IMPRESSION: Straightening of cervical curvature with patent foramina. Reviewed by: Diamond Magaña MD on 10/21/2020 4:19 PM PST Approved by: Diamond Magaña MD on 10/21/2020 4:19 PM [facility] Station ID: [id number]
--- NOTE | 2020-10-21 16:22 | XRAY Report ---
PROCEDURE: Shoulder 3 View LT INDICATIONS: LEFT SHOULDER STRAIN TECHNIQUE: 3 views of the shoulder were acquired. COMPARISON: X-ray shoulder 09/26/2020, 08/26/2020 FINDINGS: Bones: No fractures or dislocations. No suspicious bony lesions. Visualized ribs appear intact. Soft tissues: No suspicious soft tissue calcifications. IMPRESSION: No acute osseous abnormality. Given negative x-ray findings compared to 09/26/2019, if co ncern persists, further evaluation with MRI is recommended. Reviewed by: Diamond Magaña MD on 10/21/2020 4:20 PM PST Approved by: Diamond Magaña MD on 10/21/2020 4:20 PM [facility] Station ID: [id number]
== END 2020-10-21 14:09 | disposition home or self-care (01) ==
LOC: DI.N 14:08
PROVIDERS: ATTEND Physician Assistant
DX: S46.812A Strain of other muscles, fascia and tendons at shoulder and upper arm level, left arm, initial encounter (principal); M54.2 Cervicalgia

== ENCOUNTER 2021-01-07 20:29 | Emergency (ER) | payer MEDICAID, OTHER ==
--- NOTE | 2021-01-07 21:01 | ED Physician Documentation ---
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 He has been having pains in the feet with this, rub spots and blisters and has tried several insole supports. Abruptly worse today.). No: Fall, Twist Where injury occurred: Work Timing - onset: How many weeks ago (some pain due to new activity/work and new stiff boots for 2 weeks, but had abrupt worse pain in both medial arches area with work today. Pain with walking. Also some pain to heel area.) Timing - details: Abrupt onset (with starting new work/boots 2 weeks ago.), Still present (worse significantly today) Improved by: Rest Worsened by: Moving, Other (walking) Associated symptoms: Swelling (feeling swollen and tight medial arch area bilaterally). No: Weakness, Numbness Contributing factors: No: Prior ortho surgery Recently seen: Not recently seen Review of Systems Constitutional: denies: Fever, Chills Nose: denies: Rhinorrhea / runny nose, Congestion Throat: denies: Sore throat Respiratory: denies: Cough Skin: reports: Lesions (blisters several areas on feet, in common rub areas from boots (heels, first MTP area, side of feet).). denies: Rash, Abrasion (s), Laceration (s) PD PAST MEDICAL HISTORY - Past Medical History Past Medical History: Yes Cardiovascular: Hypertension Respiratory: None Neuro: None Endocrine/Autoimmune: None GI: Crohn's disease : Kidney stones HEENT: None Psych: None Musculoskeletal: None Derm: None - Past Surgical History Past Surgical History: Yes General: Cholecystectomy Ortho: Rotator cuff repair, Arthroscopic surgery - Present Medications Home Medications: Ambulatory Orders Medication Instructions Recorded Confirmed Lisinopril [Zestril] 10 mg PO DAILY 09/26/20 01/07/21 HYDROcod/ACETAM 5/325 [[place] 5/325] 1 ea PO Q6H PRN #18 tablet 01/07/21 dexAMETHasone [Decadron] 4 mg PO DAILY #5 tablet 01/07/21 - Allergies Allergies/Adverse Reactions: Allergies Allergy/AdvReac Type Severity Reaction Status Date / Time codeine AdvReac Unknown Verified 01/07/21 20:32 cyclobenzaprine AdvReac Cramps Verified 01/07/21 20:32 [From Flexeril] morphine AdvReac Cramps Verified 01/07/21 20:32 - Social History Does the pt smoke?: No Smoking Status: Never smoker Does the pt drink ETOH?: No Does the pt have substance abuse?: No - Immunizations Immunizations are current?: Yes Immunizations: TDAP current <10years - POLST Patient has POLST: No PD ED PE NORMAL - Vitals Vital signs reviewed: Yes - General General: Alert and oriented X 3, No acute distress, Well developed/nourished - Derm Derm: Normal color, Warm and dry - Extremities Extremities: Normal ROM s pain (No tenderness nor pain at Achilles with active nor passive stretching. ), Other (Both feet with tenderness on the medial arches without any gross deformity. There are several blisters on both feet along the heels, first MTP medially, lateral sides and on the left also the medial heel. No signs of infection without any purulence nor surrounding redness. Tender medial arches. ) - Neuro Neuro: Alert and oriented X 3, No motor deficit, No sensory deficit Results - Vitals Vitals: Vital Signs - 24 hr 01/07/21 01/07/21 20:32 21:57 Temperature 36.5 C 37.0 C Heart Rate 122 H 105 H Respiratory 16 12 Rate Blood Pressure 139/95 H 141/96 H O2 Saturation 98 100 Oxygen O2 Source Room air - Rads (name of study) bilateraly feet Radiology: Prelim report reviewed (some spurring at heel. No stress fractures. ), See rad report PD MEDICAL DECISION MAKING - ED course Complexity details: reviewed results, re-evaluated patient (He states he has tried several different insole inserts and supports without good improvement in feet. I will refer to [employer] for better eval and treatment. ), considered differential (He has some blisters on arch and heels signifying effect of new boots & degree of walking/work. ), d/w patient Departure - Departure Disposition: 01 Home, Self Care Clinical Impression: Foot tendinitis Condition: Stable Record reviewed to determine appropriate education?: Yes Instructions: ED Sprain Foot Follow-Up: Aiden Fonseca, RANJAN [Physician No Access] - Prescriptions: dexAMETHasone [Decadron] 4 mg PO DAILY #5 tablet HYDROcod/ACETAM 5/325 [[place] 5/325] 1 ea PO Q6H PRN #18 tablet PRN Reason: Pain Comments: Your x-rays on the heels show some mild spurring consistent with more chronic inflammation. There are no stress fractures or acute bony abnormalities. Sounds presumably have some stretching of the ligaments and tendons of the foot related to the new activity in the boots. I would suggest inserts with good arches. Since you have tried different inserts in the past without real good effect, you could also consider following up with a tree trimmer helper for further evaluation and they may be able to fashion some special made supports and to have other advice as well. In the short-term have limited activity for the next couple of days while your feet decrease inflammation and then limited standing and walking for another 4 to 5 days after that. Use Decadron anti-inflammatory for the feet (so this does not bother your Crohn's). To that add Tylenol 650 mg 4 times a day or hydrocodone if needed short-term for worse pain. Forms: Activity restrictions Discharge Date/Time: 01/07/21 21:55
[2021-01-07] MEDS ORDERED: CHERRY SYRUP 10 ML UDC PO ONE (21:22)
[2021-01-07] MEDS ORDERED: HYDROcod/ACETAM 5/325 MG TABLET PO STA (21:22)
[2021-01-07] MEDS ORDERED: DEXAMETHASONE 10 MG/ML VIAL PO STA (21:22)
--- NOTE | 2021-01-07 21:50 | XRAY Report ---
PROCEDURE: Foot 3 View BILAT INDICATIONS: bilateral arch pains TECHNIQUE: 6 views of the foot were acquired. COMPARISON: None FINDINGS: Bones: No fractures or dislocations. No suspicious bony lesions. Well-defined bilateral dorsal calixto caneal enthesophytes are seen. Soft tissues: No tibiotalar joint effusion. Achilles tendon appears normal. IMPRESSION: No fracture or dislocation is seen. Well-defined bilateral dorsal calcaneal enthesophytes. No gross s oft tissue abnormality. Reviewed by: Dennis Madrid MD on 01/07/2021 9:48 PM PDT Approved by: Dennis Madrid MD on 01/07/2021 9:48 PM PDT Station ID: [id number]
[2021-01-07 21:58] VITALS: BP 141/96
== END 2021-01-07 21:55 | disposition home or self-care (01) ==
LOC: ED 20:29
DX: M70.872 Other soft tissue disorders related to use, overuse and pressure, left ankle and foot (principal); M70.871 Other soft tissue disorders related to use, overuse and pressure, right ankle and foot; I10 Essential (primary) hypertension
CPT/HCPCS: 73630; 99283; A9270

== ENCOUNTER 2021-02-07 10:49 | Emergency (ER) | payer MEDICAID ==
--- OUTSIDE RECORDS SUMMARY | 2021-02-07 10:52 | EXTERNAL MEDICAL SUMMARY RPT | Continuity of Care Document ---
:1985 Demographics Phone Unavailable Preferred Language Tamazight Marital Status Unknown Cheondoism Affiliation Unknown Race Unknown Ethnic Group Unknown Author Organization [place] Address [address] [place] [address] Phone Allergies Encounters Medications Problems Results
[2021-02-07] MEDS ORDERED: MORPHINE 2 MG/ML CARPUJECT IVP STA ×2 (11:09→11:24)
[2021-02-07] MEDS ORDERED: ONDANSETRON 4 MG/2 ML VIAL IVP STA (11:11)
[2021-02-07] MEDS ORDERED: SODIUM CHLORIDE 0.9% 1,000 ML IV STA (11:11)
[2021-02-07 11:12] LABS: BASOPHILS # (AUTO) 0.1 10^3/uL (0.0-0.1); BASOPHILS % (AUTO) 0.8 %; EOSINOPHILS # (AUTO) 0.2 10^3/uL (0.0-0.7); EOSINOPHILS % (AUTO) 2.6 %; HGB - HEMOGLOBIN 15.2 g/dL (14.0-18.0); LYMPHOCYTES # (AUTO) 2.1 10^3/uL (1.5-3.5); LYMPHOCYTES % (AUTO) 28.7 %; MEAN CORPUSCULAR HEMOGLOBIN 29.2 pg (27.0-31.0); MEAN CORPUSCULAR HGB CONC 33.8 g/dL (32.0-36.0); MEAN CORPUSCULAR VOLUME 86.5 fL (80.0-94.0); MEAN PLATELET VOLUME 9.5 fL (7.4-11.4); MONOCYTES # (AUTO) 1.2 10^3/uL (0.0-1.0); MONOCYTES % (AUTO) 16.2 %; NEUTROPHILS # (AUTO) 3.8 10^3/uL (1.5-6.6); NEUTROPHILS % (AUTO) 51.3 %; PLT - PLATELET COUNT 270 10^3/uL (130-450); RED CELL DISTRIBUTION WIDTH 13.2 % (12.0-15.0); WHITE BLOOD COUNT 7.3 x10^3/uL (4.8-10.8)
--- OUTSIDE RECORDS SUMMARY | 2021-02-07 11:21 | EXTERNAL MEDICAL SUMMARY RPT | Continuity of Care Document ---
:1985 Demographics Phone Unavailable Preferred Language Greenlandic Marital Status Unknown Hindu Affiliation Unknown Race Unknown Ethnic Group Unknown Author Organization [place] Address [address] [place] [address] Phone Allergies Encounters Medications Problems Results
[2021-02-07 11:22] LABS: BILIRUBIN,URINE NEGATIVE (NEGATIVE); GLUCOSE, URINE (UA) NEGATIVE (NEGATIVE); KETONES,URINE (UA) NEGATIVE (NEGATIVE); LEUKOCYTE ESTERASE, URINE NEGATIVE (NEGATIVE); NITRITE,URINE NEGATIVE (NEGATIVE); OCCULT BLOOD,URINE SMALL (NEGATIVE); PH,URINE 6.5 PH (5.0-7.5); PROTEIN,URINE NEGATIVE (NEGATIVE); UROBILINOGEN,URINE 1 (NORMAL) E.U./dL (NORMAL)
[2021-02-07 11:25] LABS: ALBUMIN/GLOBULIN RATIO 1.3 (1.0-2.2); BILIRUBIN,TOTAL 1.1 mg/dL (0.2-1.0); CALCIUM 8.8 mg/dL (8.5-10.3); CREATININE 0.9 mg/dL (0.6-1.2); POTASSIUM 3.9 mmol/L (3.5-5.0); TOTAL PROTEIN 7.2 g/dL (6.7-8.2)
[2021-02-07] MEDS ORDERED: HYDROmorphone 1 MG/ML CARPUJECT IVP STA (11:25)
--- NOTE | 2021-02-07 11:25 | ED Physician Documentation ---
PD HPI ABD PAIN - Stated complaint Stated Complaint: BACK PX - Chief complaint Chief Complaint: Abd Pain - History obtained from History obtained from: Patient - Additional information Additional information: 35-year-old man with pmh crohns, kidney stones p/w Left flank pain radiating to the abdomen as well as bilateral flank pain over the past 3 days, intermittent, sharp, currently moderate severity, associated with nausea. Also with hematuria and chills. Last year the patient had stents placed and has had recurrent kidney stones since then, passing a stone that just last week.Denies fever gr eater than 100.4, vomiting, diarrhea, other symptoms Review of Systems Ten Systems: 10 systems reviewed and negative Constitutional: reports: Chills. denies: Fever : reports: Hematuria Musculoskeletal: reports: Back pain PD PAST MEDICAL HISTORY - Past Medical History Cardiovascular: Hypertension Respiratory: None Neuro: None Endocrine/Autoimmune: None GI: Crohn's disease : Kidney stones HEENT: None Psych: None Musculoskeletal: None Derm: None - Past Surgical History Past Surgical History: Yes General: Cholecystectomy Ortho: Rotator cuff repair, Arthroscopic surgery - Present Medications Home Medications: Ambulatory Orders Medication Instructions Recorded Confirmed Lisinopril [Zestril] 10 mg PO DAILY 09/26/20 01/07/21 Ondansetron Odt [Zofran Odt] 4 mg TL Q6H PRN #10 tablet 02/07/21 Oxycodone HCl/Acetaminophen 1 each PO Q4H PRN #10 tablet 02/07/21 [Percocet 10-325 mg Tablet] Tamsulosin [Flomax] 0.4 mg PO DAILY 14 Days #14 tab 02/07/21 - Allergies Allergies/Adverse Reactions: Allergies Allergy/AdvReac Type Severity Reaction Status Date / Time codeine AdvReac Unknown Verified 02/07/21 10:56 cyclobenzaprine AdvReac Cramps Verified 02/07/21 10:56 [From Flexeril] morphine AdvReac Cramps Verified 02/07/21 10:56 - Social History Does the pt smoke?: No Smoking Status: Never smoker Does the pt drink ETOH?: No Does the pt have substance abuse?: No - Immunizations Immunizations are current?: Yes Immunizations: TDAP current <10years - POLST Patient has POLST: No PD ED PE NORMAL - Vitals Vital signs reviewed: Yes - General General: Alert and oriented X 3, No acute distress, Well developed/nourished - HEENT HEENT: Atraumatic, PERRL, EOMI - Neck Neck: Supple, no meningeal sign - Cardiac Cardiac: RRR - Respiratory Respiratory: No respiratory distress, Clear bilaterally - Abdomen Abdomen: Non tender, Non distended - Back Back: Other (Bilateral CVA tenderness) - Derm Derm: Normal color, Warm and dry - Extremities Extremities: No deformity - Neuro Neuro: Alert and oriented X 3 - Psych Psych: Normal mood, Normal affect Results - Vitals Vitals: Vital Signs - 24 hr 02/07/21 10:51 Temperature 36.6 C Heart Rate 90 Respiratory 18 Rate Blood Pressure 167/98 H O2 Saturation 100 Oxygen O2 Source Room air - Labs Labs: Laboratory Tests 02/07/21 02/07/21 02/07/21 11:00 11:08 11:08 WBC 7.3 RBC 5.20 Hgb 15.2 Hct 45.0 MCV 86.5 MCH 29.2 MCHC 33.8 RDW 13.2 Plt Count 270 MPV 9.5 Neut # (Auto) 3.8 Lymph # (Auto) 2.1 [place] # (Auto) 1.2 H Eos # (Auto) 0.2 Baso # (Auto) 0.1 Absolute Nucleated RBC 0.00 Nucleated RBC % 0.0 Sodium 139 Potassium 3.9 Chloride 103 Carbon Dioxide 26 Anion Gap 10.0 BUN 16 Creatinine 0.9 Estimated GFR (MDRD) 97 Glucose 99 Calcium 8.8 Total Bilirubin 1.1 H AST 19 ALT 33 Alkaline Phosphatase 74 Total Protein 7.2 Albumin 4.0 Globulin 3.2 Albumin/Globulin Ratio 1.3 Lipase 35 Urine Color YELLOW Urine Clarity CLEAR Urine pH 6.5 Ur Specific [place] 1.025 Urine Protein NEGATIVE Urine Glucose (UA) NEGATIVE Urine Ketones NEGATIVE Urine Occult Blood SMALL H Urine Nitrite NEGATIVE Urine Bilirubin NEGATIVE Urine Urobilinogen 1 (NORMAL) Ur Leukocyte Esterase NEGATIVE Urine RBC 6-10 H Urine WBC 0-3 Ur Squamous Epith Cells FEW Squamous Urine Bacteria Few Ur Microscopic Review INDICATED Urine Culture Comments NOT INDICATED PD MEDICAL DECISION MAKING - ED course ED course: 35-year-old man presents with kidney stone with mild perinephric inflammation, normal kidney function and negative urine. Symptoms well controlled with symptomatic care here in the emergency department. Prescription provided and patient will follow up with urology. Return precautions given Departure - Departure Disposition: Home, Self Care Clinical Impression: Kidney stones Condition: Good Instructions: Kidney Stones Prescriptions: Tamsulosin [Flomax] 0.4 mg PO DAILY 14 Days #14 tab Oxycodone HCl/Acetaminophen [Percocet 10-325 mg Tablet] 1 each PO Q4H PRN #10 tablet PRN Reason: Pain Ondansetron Odt [Zofran Odt] 4 mg TL Q6H PRN #10 tablet PRN Reason: Nausea / Vomiting Comments: You are seen in the emergency department for kidney stones. Please follow-up with urology this week. Return the emergency department experience any new or worsening symptoms or have other concerns.
[2021-02-07 11:26] LABS: CLARITY,URINE CLEAR (CLEAR)
[2021-02-07 11:38] LABS: BACTERIA,URINE Few /HPF (None Seen); SQUAMOUS EPITHELIAL CELL,UR FEW Squamous (<= Few); WBC,URINE 0-3 /HPF (0-3)
--- NOTE | 2021-02-07 12:48 | CT Report ---
PROCEDURE: Abdomen/Pelvis WO INDICATIONS: kidney stones TECHNIQUE: Noncontrast 5 mm thick sections acquired from the diaphragms to the symphysis. 5 mm coronal and sagi ttal reformats were then performed. For radiation dose reduction, the following was used: automated exposure control, adjustment of mA and/or kV according to patient size. COMPARISON: None. FINDINGS: Image quality: Excellent. ABDOMEN: Lung bases: Lung bases are clear. Heart size is normal. Solid organs: Noncontrast evaluation of the liver demonstrates no discrete mass lesion. The gallblad ting is surgically absent. Pancreas is normal in contours. No adrenal nodules There is a stone mildly distending the left renal pelvis measuring up to 1.3 cm with attenuation valu es of approximately 2612-6219 Hounsfield units. There is minimal associated caliectasis and minimal p erinephric stranding. Right kidney demonstrates no stones or hydronephrosis. The ureters are nondiste nded bilaterally. No ureteral stones. Peritoneum and bowel: Unenhanced bowel loops demonstrate normal wall thickness and caliber. The appe ndix is normal in appearance. No free fluid or air. Nodes and vessels: No retroperitoneal or mesenteric adenopathy by size criteria. Aorta and inferior vena cava are normal in caliber. Miscellaneous: No ventral hernias. PELVIS: Genitourinary: The bladder is nondistended. No calcified bladder stones. Miscellaneous: No inguinal hernias or adenopathy. Bones: No suspicious bony lesions. No vertebral body compression fractures. IMPRESSION: 1. Urinary stone in the left renal pelvis demonstrated measuring up to 1.3 cm with associated minimal pelvocaliectasis and perinephric stranding. No hydroureter. Reviewed by: Thai Velazquez MD on 02/07/2021 12:47 PM PDT Approved by: Thai Velaqzuez MD on 02/07/2021 12:47 PM PDT Station ID: [id number]
[2021-02-07] MEDS ORDERED: KETOROLAC 30 MG/ML VIAL IVP STA (12:58)
[2021-02-07 14:05] VITALS: BP 135/91
== END 2021-02-07 14:07 | disposition home or self-care (01) ==
LOC: ED 10:49
DX: N20.0 Calculus of kidney (principal); I10 Essential (primary) hypertension
CPT/HCPCS: 36415; 74176; 80053; 81001; 83690; 85025; 96374; 96375; 99284; J1170; 81003; 87086

== ENCOUNTER 2021-02-10 08:00 | Outpatient (CLI) | payer MEDICAID ==
[2021-02-10 12:32] LABS: BASOPHILS # (AUTO) 0.1 10^3/uL (0.0-0.1); BASOPHILS % (AUTO) 0.5 %; EOSINOPHILS # (AUTO) 0.3 10^3/uL (0.0-0.7); EOSINOPHILS % (AUTO) 3.1 %; HCT - HEMATOCRIT 45.8 % (42.0-52.0); HGB - HEMOGLOBIN 15.7 g/dL (14.0-18.0); LYMPHOCYTES # (AUTO) 2.9 10^3/uL (1.5-3.5); LYMPHOCYTES % (AUTO) 31.5 %; MEAN CORPUSCULAR HEMOGLOBIN 29.4 pg (27.0-31.0); MEAN CORPUSCULAR HGB CONC 34.3 g/dL (32.0-36.0); MEAN CORPUSCULAR VOLUME 85.8 fL (80.0-94.0); MEAN PLATELET VOLUME 10.7 fL (7.4-11.4); MONOCYTES # (AUTO) 0.8 10^3/uL (0.0-1.0); MONOCYTES % (AUTO) 8.9 %; NEUTROPHILS # (AUTO) 5.1 10^3/uL (1.5-6.6); NEUTROPHILS % (AUTO) 55.6 %; PLT - PLATELET COUNT 333 10^3/uL (130-450); RED BLOOD COUNT 5.34 10^6/uL (4.70-6.10); RED CELL DISTRIBUTION WIDTH 12.9 % (12.0-15.0); WHITE BLOOD COUNT 9.1 x10^3/uL (4.8-10.8)
[2021-02-10 13:33] LABS: CALCIUM 9.3 mg/dL (8.5-10.3); POTASSIUM 3.8 mmol/L (3.5-5.0)
== END 2021-02-10 23:59 | disposition home or self-care (01) ==
LOC: LAB.N 08:00
PROVIDERS: ATTEND Physician Assistant Medical
DX: N20.0 Calculus of kidney (principal)
CPT/HCPCS: 36415; 80048; 85025

== ENCOUNTER 2021-02-23 14:41 | Emergency (ER) | payer MEDICAID ==
[2021-02-23] MEDS ORDERED: ONDANSETRON 4 MG/2 ML VIAL IVP STA ×2 (15:14→17:04)
[2021-02-23] MEDS ORDERED: SODIUM CHLORIDE 0.9% 1,000 ML IV STA ×2 (15:14→17:04)
[2021-02-23 15:25] LABS: BASOPHILS # (AUTO) 0.1 10^3/uL (0.0-0.1); BASOPHILS % (AUTO) 0.4 %; EOSINOPHILS # (AUTO) 0.2 10^3/uL (0.0-0.7); EOSINOPHILS % (AUTO) 1.8 %; HCT - HEMATOCRIT 46.9 % (42.0-52.0); HGB - HEMOGLOBIN 16.2 g/dL (14.0-18.0); LYMPHOCYTES % (AUTO) 24.4 %; MEAN CORPUSCULAR HEMOGLOBIN 29.5 pg (27.0-31.0); MEAN CORPUSCULAR HGB CONC 34.5 g/dL (32.0-36.0); MEAN CORPUSCULAR VOLUME 85.3 fL (80.0-94.0); MEAN PLATELET VOLUME 9.2 fL (7.4-11.4); MONOCYTES # (AUTO) 1.2 10^3/uL (0.0-1.0); MONOCYTES % (AUTO) 9.8 %; NEUTROPHILS # (AUTO) 7.7 10^3/uL (1.5-6.6); NEUTROPHILS % (AUTO) 63.2 %; PLT - PLATELET COUNT 322 10^3/uL (130-450); RED CELL DISTRIBUTION WIDTH 12.6 % (12.0-15.0); WHITE BLOOD COUNT 12.1 x10^3/uL (4.8-10.8)
[2021-02-23 15:37] LABS: ALBUMIN 4.4 g/dL (3.2-5.5); ALBUMIN/GLOBULIN RATIO 1.4 (1.0-2.2); BILIRUBIN,TOTAL 1.1 mg/dL (0.2-1.0); CALCIUM 9.5 mg/dL (8.5-10.3); CREATININE 1.1 mg/dL (0.6-1.2); POTASSIUM 3.4 mmol/L (3.5-5.0); TOTAL PROTEIN 7.6 g/dL (6.7-8.2)
[2021-02-23] MEDS ORDERED: HYDROmorphone 1 MG/ML CARPUJECT IVP STA ×2 (15:46→17:04)
[2021-02-23] MEDS ORDERED: IOVERSOL 320 100 ML VIAL IVP ONE ×2 (15:47→16:13)
--- NOTE | 2021-02-23 16:05 | ED Physician Documentation ---
History of Present Illness - Stated complaint Stated Complaint: POST OP PX,VOMITING - Chief complaint Chief Complaint: Abd Pain - History obtained from History obtained from: Patient - History of Present Illness Pain level max: 10 Pain level now: 10 - Additonal information Additional information: Patient is a 35-year-old male who states he had a 14 mm left ureteral stone that was broken up and had a ureteral stent placed 2 days ago at [facility] by Dr. Irwin. Since that time he has had persistent pain and vomiting. Unable to keep any medications down. Has not contacted his urologist. No fevers but has had chills. Review of Systems Constitutional: denies: Fever, Chills GI: denies: Vomiting, Diarrhea Musculoskeletal: denies: Neck pain, Back pain Neurologic: denies: Headache PD PAST MEDICAL HISTORY - Past Medical History Past Medical History: Yes Cardiovascular: Hypertension Respiratory: None Neuro: None Endocrine/Autoimmune: None GI: Crohn's disease : Kidney stones HEENT: None Psych: None Musculoskeletal: None Derm: None - Past Surgical History Past Surgical History: Yes General: Cholecystectomy Ortho: Rotator cuff repair, Arthroscopic surgery - Present Medications Home Medications: Ambulatory Orders Medication Instructions Recorded Confirmed Lisinopril [Zestril] 10 mg PO DAILY 09/26/20 01/07/21 Ondansetron Odt [Zofran Odt] 4 mg TL Q6H PRN #10 tablet 02/07/21 Oxycodone HCl/Acetaminophen 1 each PO Q4H PRN #10 tablet 02/07/21 [Percocet 10-325 mg Tablet] Tamsulosin [Flomax] 0.4 mg PO DAILY 14 Days #14 tab 02/07/21 HYDROmorphone [Dilaudid] 2 mg PO Q6H PRN #7 tablet 02/23/21 Ondansetron Odt [Zofran] 4 mg TL Q6H PRN #10 tablet 02/23/21 Promethazine [Phenergan] 25 mg PO Q6H PRN #10 tab 02/23/21 - Allergies Allergies/Adverse Reactions: Allergies Allergy/AdvReac Type Severity Reaction Status Date / Time codeine AdvReac Unknown Verified 02/23/21 15:14 cyclobenzaprine AdvReac Cramps Verified 02/23/21 15:14 [From Flexeril] morphine AdvReac Cramps Verified 02/23/21 15:14 - Social History Does the pt smoke?: No Smoking Status: Never smoker Does the pt drink ETOH?: No Does the pt have substance abuse?: No - Immunizations Immunizations are current?: Yes Immunizations: TDAP current <10years - POLST Patient has POLST: No PD ED PE NORMAL - Vitals Vital signs reviewed: Yes - General General: Alert and oriented X 3, No acute distress, Well developed/nourished - HEENT HEENT: PERRL, Moist mucous membranes - Neck Neck: Supple, no meningeal sign - Cardiac Cardiac: RRR, Strong equal pulses - Respiratory Respiratory: No respiratory distress, Clear bilaterally - Abdomen Abdomen: Soft, Non distended, Other (mild L sided abd TTP. no peritoneal signs.) - Back Back: No spinal TTP, Other (mild L CVAT) - Derm Derm: Warm and dry - Neuro Neuro: Alert and oriented X 3 - Psych Psych: Normal mood, Normal affect Results - Vitals Vitals: Vital Signs - 24 hr 02/23/21 02/23/21 02/23/21 15:09 15:13 17:13 Temperature 36.5 C 36.5 C Heart Rate 118 H 118 H 100 Respiratory 18 18 16 Rate Blood Pressure 149/107 H 149/107 H 149/90 H O2 Saturation 96 96 99 02/23/21 19:00 Temperature 36.5 C Heart Rate 90 Respiratory 16 Rate Blood Pressure 148/90 H O2 Saturation 100 Oxygen O2 Source Room air - Labs Labs: Laboratory Tests 02/23/21 02/23/21 02/23/21 15:21 15:21 15:46 WBC 12.1 H RBC 5.50 Hgb 16.2 Hct 46.9 MCV 85.3 MCH 29.5 MCHC 34.5 RDW 12.6 Plt Count 322 MPV 9.2 Neut # (Auto) 7.7 H Lymph # (Auto) 3.0 [place] # (Auto) 1.2 H Eos # (Auto) 0.2 Baso # (Auto) 0.1 Absolute Nucleated RBC 0.00 Nucleated RBC % 0.0 Sodium 142 Potassium 3.4 L Chloride 104 Carbon Dioxide 26 Anion Gap 12.0 BUN 15 Creatinine 1.1 Estimated GFR (MDRD) 77 L Glucose 131 H Calcium 9.5 Total Bilirubin 1.1 H AST 17 ALT 28 Alkaline Phosphatase 69 Total Protein 7.6 Albumin 4.4 Globulin 3.2 Albumin/Globulin Ratio 1.4 Lipase 29 Urine Color YELLOW Urine Clarity HAZY Urine pH 6.0 Ur Specific [place] 1.010 Urine Protein 30 H Urine Glucose (UA) NEGATIVE Urine Ketones NEGATIVE Urine Occult Blood LARGE H Urine Nitrite NEGATIVE Urine Bilirubin NEGATIVE Urine Urobilinogen 0.2 (NORMAL) Ur Leukocyte Esterase SMALL H Urine RBC TNTC H Urine WBC 11-25 H Ur Squamous Epith Cells NONE SEEN Urine Bacteria Rare Ur Microscopic Review INDICATED Urine Culture Comments INDICATED - Rads (name of study) CT abd/pelvis Radiology: Prelim report reviewed, EMP read contemporaneously, See rad report (1. Interval removal of 1.3 cm left renal pelvic stone. 2. There is now a left double-J stent in place, with the proximal pigtail in the renal pelvis and the distal pigtail in the bladder. 3. There is mild left hydronephrosis, and there are tiny residual stone fragments in the upper pole and lower po) PD MEDICAL DECISION MAKING - ED course Complexity details: reviewed results, re-evaluated patient, considered differential, d/w patient, d/w [employer] consultant ED course: 35-year-old male with left flank pain after a double-J stent was placed 2 days ago at [facility]. I discussed the case with Dr. Garcia. Urinalysis appears as expected after a stent placement. Mild leukocytosis, but no fevers. Given IV fluids, pain medication and nausea medication. Tolerating p.o. without difficulty. Patient feels much better. Stent does appear in place still. Dr. Garcia recommends follow-up with urology tomorrow. Patient is comfortable with this plan. If he worsens he will return to [facility]. Patient counseled regarding signs and symptoms for which I believe and urgent re-evaluation would be necessary. Patient with good understanding of and agreement to plan and is comfortable going home at this time This document was made in part using voice recognition software. While efforts are made to proofread this document, sound alike and grammatical errors may occur. Departure - Departure Disposition: 01 Home, Self Care Clinical Impression: Pain Vomiting Qualifiers: Vomiting type: unspecified Vomiting Intractability: non-intractable Nausea presence: with nausea Qualified Code(s): R11.2 - Nausea with vomiting, unspecified Condition: Good Instructions: ED Abdominal Pain Unkn Cause, ED Nausea Vomiting Follow-Up: Mavis Edge DO [Primary Care Provider] - Romel Irwin MD [Physician No Access] - Tomorrow Prescriptions: HYDROmorphone [Dilaudid] 2 mg PO Q6H PRN #7 tablet PRN Reason: Abdominal Pain Promethazine [Phenergan] 25 mg PO Q6H PRN #10 tab PRN Reason: Nausea / Vomiting Ondansetron Odt [Zofran] 4 mg TL Q6H PRN #10 tablet PRN Reason: Nausea / Vomiting Comments: Follow-up with your urologist tomorrow. Return if you worsen. Make sure you are staying well-hydrated. Continue your pain medications at home. Return for worsening pain, vomiting and/or fevers. Your stent appears to be in place today. I spoke with Dr. Radha jennings. I am prescribing a short course of narcotic pain medication for you. These are potentially dangerous and addictive medications that should be used carefully. These medications may constipate you. Take an gnyb-vwi-sxgteyh stool softener (docusate) twice daily with plenty of water while taking these medications. If you go 24 hours without a bowel movement, take [id number] miralax, per package instructions. Do not drink or drive while taking these medications. If you received narcotic or sedating medications while in the emergency department, do not drive for 24 hours. Store this medication in a safe, secure place and out of reach of children. It is a violation of federal law to give or sell this medication to another person or to use in a manner other than prescribed. The ED will not refill narcotic prescriptions, including prescriptions lost or stolen. To dispose of unwanted medications: 1. [facility] at [address] in [place] has a medication drop box. They accept prescription medications (in pill form) Wednesday through Wednesday 9:00 a.m. to 5:00 p.m. 2. [facility] [employer] accepts prescription medications (in pill form only) for disposal year round. Call for more information. 3. Contact the [facility] for the next [facility] sponsored prescription drug collection event. , [phone], or [phone]; CT Results: 1. Interval removal of 1.3 cm left renal pelvic stone. 2. There is now a left double-J stent in place, with the proximal pigtail in the renal pelvis and the distal pigtail in the bladder. 3. There is mild left hydronephrosis, and there are tiny residual stone fragments in the upper pole and lower pole of the left kidney. Discharge Date/Time: 02/23/21 19:10
[2021-02-23 16:20] LABS: BILIRUBIN,URINE NEGATIVE (NEGATIVE); GLUCOSE, URINE (UA) NEGATIVE (NEGATIVE); KETONES,URINE (UA) NEGATIVE (NEGATIVE); LEUKOCYTE ESTERASE, URINE SMALL (NEGATIVE); NITRITE,URINE NEGATIVE (NEGATIVE); OCCULT BLOOD,URINE LARGE (NEGATIVE); PROTEIN,URINE 30 mg/dL (NEGATIVE); UROBILINOGEN,URINE 0.2 (NORMAL) E.U./dL (NORMAL)
[2021-02-23 16:25] LABS: CLARITY,URINE HAZY (CLEAR)
--- NOTE | 2021-02-23 16:32 | CT Report ---
PROCEDURE: Abdomen/Pelvis W INDICATIONS: LLQ abd pain, ureteral stent placed 2 days ago CONTRAST: IV CONTRAST: Optiray 320 ml: 100 PO CONTRAST: *NO PO CONTRAST TECHNIQUE: After the administration of intravenous contrast, 5 mm thick sections acquired from the diaphragms to the symphysis. 5 mm thick coronal and sagittal reformats were acquired. For radiation dose reducti on, the following was used: automated exposure control, adjustment of mA and/or kV according to preet ent size. COMPARISON: 02/07/2021 FINDINGS: Image quality: Excellent. ABDOMEN: Lung bases: Lung bases are clear. Heart size is normal. Solid organs: Liver and spleen are normal in size and enhancement. Gallbladder is surgically absent Biliary system is non dilated. Pancreas enhances normally. No adrenal nodules. Interval insertion of a double-J left ureteral stent. The left renal pelvic stone previously present, measuring 1.3 cm, is no longer identified. There are tiny probable nonobstructing stone fragments in the upper pole an d lower pole. Mild left hydronephrosis has developed. The double-J stent extends minimally beyond the ureterovesical junction into the bladder. No ureteral stone is identified. Peritoneum and bowel: Matias wel loops demonstrate normal wall thickness and caliber. No free fluid or air. Nodes and vessels: No retroperitoneal or mesenteric adenopathy by size criteria. Aorta and inferior vena cava are normal in size. Miscellaneous: No ventral hernias. PELVIS: Genitourinary: Bladder wall thickness is normal. Miscellaneous: No inguinal hernias or adenopathy. Bones: No suspicious bony lesions. No vertebral body compression fractures. IMPRESSION: 1. Interval removal of 1.3 cm left renal pelvic stone. 2. There is now a left double-J stent in place, with the proximal pigtail in the renal pelvis and the distal pigtail in the bladder. 3. There is mild left hydronephrosis, and there are tiny residual stone fragments in the upper pole a nd lower pole of the left kidney. Reviewed by: Alexis Mullins MD on 02/23/2021 3:31 PM [facility] Approved by: Alexis Mullins MD on 02/23/2021 3:31 PM [facility] Station ID: [id number]
[2021-02-23 16:41] LABS: BACTERIA,URINE Rare /HPF (None Seen); RBC,URINE TNTC /HPF (0-5); SQUAMOUS EPITHELIAL CELL,UR NONE SEEN (<= Few)
[2021-02-23] MEDS ORDERED: PROMETHAZINE INJ 25 MG in SODIUM CHLORIDE 0.9% 50 ML IV STA (18:24)
[2021-02-23] MEDS ORDERED: PROMETHAZINE 25 MG/1 ML VIAL ONE (18:29)
[2021-02-23 19:10] VITALS: BP 148/90
== END 2021-02-23 19:10 | disposition home or self-care (01) ==
LOC: ED 14:41
DX: G89.18 Other acute postprocedural pain (principal); R10.9 Unspecified abdominal pain; R11.2 Nausea with vomiting, unspecified; Z87.442 Personal history of urinary calculi; Z96.0 Presence of urogenital implants; I10 Essential (primary) hypertension
CPT/HCPCS: 36415; 74177; 80053; 81001; 83690; 85025; 87086; 96361; 96365; 96375; 96376; 99283; 99284; J1170; J7040; Q9967; 81003

== ENCOUNTER 2021-04-01 08:06 | Emergency (ER) | payer OTHER, MEDICAID ==
[2021-04-01] MEDS ORDERED: KETOROLAC 60 MG/2 ML VIAL IM STA (08:46)
--- NOTE | 2021-04-01 08:48 | ED Physician Documentation ---
PD HPI UPPER EXT INJURY - Stated complaint Stated Complaint: LT SHOULDER PX - Chief complaint Chief Complaint: Ext Problem - History obtained from History obtained from: Patient - History of Present Illness Location: Left, Shoulder Timing - details: Gradual onset Pain level max: 7 Pain level now: 5 Improved by: Rest Worsened by: Moving, Palpating - Additonal information Additional information: Patient is a 36-year-old male who presents to the emergency department stating he injured his left shoulder about 8 months ago. 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 He does continue to perform lifting at work. He states that over the past several days his left shoulder has begun to hurt again. He states that it is worse with movement, better with rest. He is still followed by orthopedics for his injuries. Patient states he has an upcoming MRI scheduled Review of Systems Constitutional: denies: Fever, Chills GI: denies: Vomiting, Diarrhea Musculoskeletal: denies: Neck pain, Back pain Neurologic: denies: Headache PD PAST MEDICAL HISTORY - Past Medical History Past Medical History: Yes Cardiovascular: Hypertension Respiratory: None Neuro: None Endocrine/Autoimmune: None GI: Crohn's disease : Kidney stones HEENT: None Psych: None Musculoskeletal: None Derm: None - Past Surgical History Past Surgical History: Yes General: Cholecystectomy Ortho: Rotator cuff repair, Arthroscopic surgery - Present Medications Home Medications: Ambulatory Orders Medication Instructions Recorded Confirmed Lisinopril [Zestril] 10 mg PO DAILY 09/26/20 01/07/21 Ondansetron Odt [Zofran Odt] 4 mg TL Q6H PRN #10 tablet 02/07/21 Oxycodone HCl/Acetaminophen 1 each PO Q4H PRN #10 tablet 02/07/21 [Percocet 10-325 mg Tablet] Tamsulosin [Flomax] 0.4 mg PO DAILY 14 Days #14 tab 02/07/21 HYDROmorphone [Dilaudid] 2 mg PO Q6H PRN #7 tablet 02/23/21 Ondansetron Odt [Zofran] 4 mg TL Q6H PRN #10 tablet 02/23/21 Promethazine [Phenergan] 25 mg PO Q6H PRN #10 tab 02/23/21 Meloxicam [Mobic] 7.5 mg PO BID PRN #20 tablet 04/01/21 Oxycodone HCl/Acetaminophen 1 - 2 each PO Q6H PRN #14 tablet 04/01/21 [Percocet 5-325 mg Tablet] - Allergies Allergies/Adverse Reactions: Allergies Allergy/AdvReac Type Severity Reaction Status Date / Time codeine AdvReac Unknown Verified 04/01/21 08:20 cyclobenzaprine AdvReac Cramps Verified 04/01/21 08:20 [From Flexeril] morphine AdvReac Cramps Verified 04/01/21 08:20 - Social History Does the pt smoke?: No Smoking Status: Never smoker Does the pt drink ETOH?: No Does the pt have substance abuse?: No - Immunizations Immunizations are current?: Yes Immunizations: TDAP current <10years - POLST Patient has POLST: No PD ED PE NORMAL - Vitals Vital signs reviewed: Yes - General General: Alert and oriented X 3, No acute distress - HEENT HEENT: Moist mucous membranes - Neck Neck: Supple, no meningeal sign - Cardiac Cardiac: RRR - Respiratory Respiratory: No respiratory distress, Clear bilaterally - Derm Derm: Warm and dry - Extremities Extremities: Other (Tenderness to palpation over the anterior aspect of the left glenohumeral joint. Pain with external rotation, pain with extension and abduction. Also pain with internal rotation. Neurovascularly intact) - Neuro Neuro: Alert and oriented X 3 Results - Vitals Vitals: Vital Signs - 24 hr 04/01/21 04/01/21 08:16 08:56 Temperature 36.5 C 36.1 C L Heart Rate 93 94 Respiratory 16 16 Rate Blood Pressure 158/104 H 158/107 H O2 Saturation 99 98 Oxygen O2 Source Room air PD MEDICAL DECISION MAKING - ED course Complexity details: considered differential, d/w patient ED course: 36-year-old male with what appears to be a rotator cuff tendon injury. Possible tendinitis versus tear with inflammation. Offered a sling, patient declines this. He can try compressive braces at home. We will have him follow-up with orthopedics for further care. We will prescribe pain medications for home and patient was instructed on exercises to continue to stretch the area as well. Patient counseled regarding signs and symptoms for which I believe and urgent re-evaluation would be necessary. Patient with good understanding of and agreement to plan and is comfortable going home at this time This document was made in part using voice recognition software. While efforts are made to proofread this document, sound alike and grammatical errors may occur. I am prescribing a short course of short-acting opioid pain medication for this patient. I have reviewed the patients CRIBBING SETTER and no concerning findings were noted. I have discussed that the opioids are for short term therapy only, and will not be refilled from the ED. Departure - Departure Disposition: 01 Home, Self Care Clinical Impression: Rotator cuff tendinitis Qualifiers: Laterality: left Qualified Code(s): M75.82 - Other shoulder lesions, left shoulder Condition: Good Instructions: ED Tendinitis Rotator Cuff Follow-Up: Mavis Edge DO [Primary Care Provider] - Ambrosio Elmore PA-C [Provider Admit Priv/Credential] - Within 1 week Prescriptions: Meloxicam [Mobic] 7.5 mg PO BID PRN #20 tablet PRN Reason: Pain Oxycodone HCl/Acetaminophen [Percocet 5-325 mg Tablet] 1 - 2 each PO Q6H PRN #14 tablet PRN Reason: pain Comments: Use the medications as prescribed. Follow-up with your doctor for further care. Return if you worsen. Continue to stretching as we discussed today. You may want to look into a compressive shoulder brace as well, these are sold commonly on [employer] and often will help with the rotator cuff injuries. I am prescribing a short course of narcotic pain medication for you. These are potentially dangerous and addictive medications that should be used carefully. These medications may constipate you. Take an oell-cht-kmfqmfo stool softener (docusate) twice daily with plenty of water while taking these medications. If you go 24 hours without a bowel movement, take ybja-hdp-eqbjhyv miralax, per package instructions. Do not drink or drive while taking these medications. If you received narcotic or sedating medications while in the emergency dep artment, do not drive for 24 hours. Store this medication in a safe, secure place and out of reach of children. It is a violation of federal law to give or sell this medication to another person or to use in a manner other than prescribed. The ED will not refill narcotic prescriptions, including prescriptions lost or stolen. To dispose of unwanted medications: 1. [facility] [address] in [place] has a medication drop box. They accept prescription medications (in pill form) Wednesday through Wednesday 9:00 a.m. to 5:00 p.m. 2. The [facility] accepts prescription medications (in pill form only) for disposal year round. Call for more information. 3. Contact the [facility] for the next [facility] sponsored prescription drug collection event. , [phone], or [phone]; Forms: Activity restrictions Discharge Date/Time: 04/01/21 09:00
[2021-04-01 08:58] VITALS: BP 158/107
== END 2021-04-01 09:00 | disposition home or self-care (01) ==
LOC: ED 08:06
DX: S46.012A Strain of muscle(s) and tendon(s) of the rotator cuff of left shoulder, initial encounter (principal); X50.0XXA Overexertion from strenuous movement or load, initial encounter; Y93.H2 Activity, gardening and landscaping; Y99.0 Civilian activity done for income or pay; I10 Essential (primary) hypertension
CPT/HCPCS: 99282; 99284

== ENCOUNTER 2021-08-04 07:33 | Emergency (ER) | payer MEDICAID ==
--- NOTE | 2021-08-04 08:02 | ED Physician Documentation ---
PD HPI DYSPNEA - Stated complaint Stated Complaint: SOA/CHEST/HEAD PX - Chief complaint Chief Complaint: Cardiac - History obtained from History obtained from: Patient - History of Present Illness Timing - onset: How many days ago (2-3) Timing - onset during: Light activity Timing - duration: Days Timing - details: Gradual onset, Still present Inciting event(s): No: URI (not really having URI symptoms.) Associated symptoms: No: Fever, Cough, Wheezing, Bilateral edema Similar symptoms before: Has not had sx before Review of Systems Constitutional: reports: Myalgias, Fatigue. denies: Fever, Chills Nose: denies: Rhinorrhea / runny nose, Congestion Throat: denies: Sore throat Cardiac: reports: Chest pain / pressure. denies: Palpitations Respiratory: reports: Dyspnea. denies: Cough, Wheezing GI: denies: Abdominal Pain, Nausea, Vomiting, Diarrhea, Bloody / black stool Skin: denies: Rash, Lesions Neurologic: reports: Generalized weakness, Headache (mild), Other (general muscle aches.). denies: Focal weakness, Numbness PD PAST MEDICAL HISTORY - Past Medical History Past Medical History: Yes Cardiovascular: Hypertension Respiratory: None Neuro: Headaches Endocrine/Autoimmune: None GI: Crohn's disease : Kidney stones HEENT: None Psych: None Musculoskeletal: None Derm: None - Past Surgical History Past Surgical History: Yes General: Cholecystectomy Ortho: Rotator cuff repair, Arthroscopic surgery - Present Medications Home Medications: Ambulatory Orders Medication Instructions Recorded Confirmed Lisinopril [Zestril] 10 mg PO DAILY 09/26/20 08/04/21 Albuterol Sulf [Ventolin Hfa 2 - 3 puffs INH Q4HR PRN #1 inhaler 08/04/21 Inhaler] dexAMETHasone [Decadron] 4 mg PO DAILY #5 tablet 08/04/21 lisinopriL [Lisinopril] 10 mg PO DAILY 30 Days #30 tablet 08/04/21 - Allergies Allergies/Adverse Reactions: Allergies Allergy/AdvReac Type Severity Reaction Status Date / Time codeine AdvReac Unknown Verified 08/04/21 07:52 cyclobenzaprine AdvReac Cramps Verified 08/04/21 07:52 [From Flexeril] morphine AdvReac Cramps Verified 08/04/21 07:52 - Social History Does the pt smoke?: No Smoking Status: Never smoker Does the pt drink ETOH?: No Does the pt have substance abuse?: No - Immunizations Immunizations are current?: Yes Immunizations: TDAP current <10years - POLST Patient has POLST: No PD ED PE NORMAL - Vitals Vital signs reviewed: Yes (goods sats. Is moderately hypertensive) - General General: Alert and oriented X 3, No acute distress, Well developed/nourished, Other (obese) - HEENT HEENT: Pharynx benign - Neck Neck: Supple, no meningeal sign, No adenopathy - Cardiac Cardiac: RRR, No murmur - Respiratory Respiratory: Clear bilaterally - Abdomen Abdomen: Soft, Non tender - Derm Derm: Normal color, Warm and dry - Extremities Extremities: No edema, No calf tenderness / cord - Neuro Neuro: Alert and oriented X 3, No motor deficit, Normal speech Results - Vitals Vitals: Oxygen O2 Source Room air - EKG (time done) 07:46 Rate: Rate (enter#) (98) Rhythm: NSR [place]: Normal Intervals: Normal [place] QRS: Normal Ischemia: Normal ST segments. No: ST elevation c/w ischemia, ST depression - Labs Labs: Laboratory Tests 08/04/21 08/04/21 08/04/21 08:04 08:04 08:04 WBC 9.9 RBC 5.73 Hgb 16.6 Hct 47.8 MCV 83.4 MCH 29.0 MCHC 34.7 RDW 13.1 Plt Count 346 MPV 9.8 Neut # (Auto) 5.8 Lymph # (Auto) 3.0 Harmon # (Auto) 0.7 Eos # (Auto) 0.3 Baso # (Auto) 0.1 Absolute Nucleated RBC 0.00 Nucleated RBC % 0.0 Sodium 142 Potassium 3.7 Chloride 108 Carbon Dioxide 23 Anion Gap 11.0 BUN 9 Creatinine 0.9 Estimated GFR (MDRD) 96 Glucose 96 Calcium 9.1 Total Bilirubin 0.7 AST 24 ALT 46 Alkaline Phosphatase 81 Troponin I High Sens 11.1 B-Natriuretic Peptide Total Protein 7.4 Albumin 4.1 Globulin 3.3 Albumin/Globulin Ratio 1.2 Lipase 51 08/04/21 08:04 WBC RBC Hgb Hct MCV MCH MCHC RDW Plt Count MPV Neut # (Auto) Lymph # (Auto) Harmon # (Auto) Eos # (Auto) Baso # (Auto) Absolute Nucleated RBC Nucleated RBC % Sodium Potassium Chloride Carbon Dioxide Anion Gap BUN Creatinine Estimated GFR (MDRD) Glucose Calcium Total Bilirubin AST ALT Alkaline Phosphatase Troponin I High Sens B-Natriuretic Peptide 20 Total Protein Albumin Globulin Albumin/Globulin Ratio Lipase - Rads (name of study) chest xray Radiology: Prelim report reviewed (no acute process. ), See rad report PD MEDICAL DECISION MAKING - ED course Complexity details: considered differential (likely early viral syndrome. Can eval for SD, hear failure, pneumonia, effusion, etc. Also consider autoimmune such as PMR though unusual age for it. ), d/w patient Departure - Departure Disposition: Home, Self Care Clinical Impression: Dyspnea Qualifiers: Dyspnea type: shortness of breath Qualified Code(s): R06.02 - Shortness of breath Hypertension Qualifiers: Hypertension type: unspecified Qualified Code(s): I10 - Essential (primary) hypertension Condition: Stable Record reviewed to determine appropriate education?: Yes Instructions: ED Dyspnea Shortness of Breath Follow-Up: Mavis Edge DO [Primary Care Provider] - Prescriptions: Albuterol Sulf [Ventolin Hfa Inhaler] 2 - 3 puffs INH Q4HR PRN #1 inhaler PRN Reason: Shortness Of Air/Wheezing dexAMETHasone [Decadron] 4 mg PO DAILY #5 tablet lisinopriL [Lisinopril] 10 mg PO DAILY 30 Days #30 tablet Comments: Your EKG/chest x-ray/blood tests are good without any signs of pneumonia, heart failure, heart attack, anemia, kidney problems or diabetes. I think your symptoms are likely the beginning of a viral illness with the associated aches and chills. See how you do over the next few days regarding general symptoms and breathing and cough. Use the Decadron steroid anti-inflammatory daily for the next 5 days to help with airway inflammation. Use the albuterol inhaler 2 to 3 puffs four times a day regularly for the next several days to week to help with breathing. Stay well-hydrated. Tylenol or ibuprofen if needed for fevers or pains. I wrote for your usual lisinopril so you can view back on that. I do not think your blood pressure relates to any of your symptoms today but is good to be resume your medicines. I transmitted your prescriptions to [facility] pharmacy in [place]. You have a Covid test pending. You need to self quarantine until the result is done and negative. Do not leave your house. Do not get near anybody. The results should be done in 1-3 days, but sometimes longer. We will call with a positive result, the fastest way to get a negative result for confirmation though is to go to the hospital website at [email or web address], click on the my [facility] tab and sign up for the patient portal. If any friends or family get sick and would like to have a Covid test done, but do not have signs or symptoms that would necessitate being hospitalized, we encourage testing throughone of the local pharmacies or the Health Department. Call them to schedule an appointment. Discharge Date/Time: 08/04/21 09:48
[2021-08-04 08:11] LABS: BASOPHILS # (AUTO) 0.1 10^3/uL (0.0-0.1); BASOPHILS % (AUTO) 0.6 %; EOSINOPHILS # (AUTO) 0.3 10^3/uL (0.0-0.7); EOSINOPHILS % (AUTO) 2.5 %; HCT - HEMATOCRIT 47.8 % (42.0-52.0); HGB - HEMOGLOBIN 16.6 g/dL (14.0-18.0); LYMPHOCYTES % (AUTO) 30.3 %; MEAN CORPUSCULAR HGB CONC 34.7 g/dL (32.0-36.0); MEAN CORPUSCULAR VOLUME 83.4 fL (80.0-94.0); MEAN PLATELET VOLUME 9.8 fL (7.4-11.4); MONOCYTES # (AUTO) 0.7 10^3/uL (0.0-1.0); NEUTROPHILS # (AUTO) 5.8 10^3/uL (1.5-6.6); NEUTROPHILS % (AUTO) 59.1 %; PLT - PLATELET COUNT 346 10^3/uL (130-450); RED BLOOD COUNT 5.73 10^6/uL (4.70-6.10); RED CELL DISTRIBUTION WIDTH 13.1 % (12.0-15.0); WHITE BLOOD COUNT 9.9 x10^3/uL (4.8-10.8)
[2021-08-04] MEDS ORDERED: ALBUTEROL 1 PUFF INH STA (08:18)
[2021-08-04] MEDS ORDERED: KETOROLAC 30 MG/ML VIAL IVP STA (08:18)
[2021-08-04] MEDS ORDERED: DEXAMETHASONE 10 MG/ML VIAL IVP STA (08:18)
--- NOTE | 2021-08-04 08:28 | XRAY Report ---
PROCEDURE: Chest 1 View X-Ray INDICATIONS: Chest Pain TECHNIQUE: One view of the chest was acquired. COMPARISON: May 28, 2020 FINDINGS: SUPPORT DEVICES: None. LUNGS/PLEURA: No focal consolidation, pleural effusion or space-occupying pneumothorax. MEDIASTINUM: The cardiomediastinal silhouette is within normal limits. BONES/SOFT TISSUES: No acute abnormality. IMPRESSION: 1.No acute cardiopulmonary abnormality. Reviewed by: Gerald Simeon MD on 08/04/2021 8:27 AM [facility] Approved by: Gerald Simeon MD on 08/04/2021 8:27 AM [facility] Station ID: [id number]
[2021-08-04 08:30] LABS: ALBUMIN 4.1 g/dL (3.2-5.5); ALBUMIN/GLOBULIN RATIO 1.2 (1.0-2.2); BILIRUBIN,TOTAL 0.7 mg/dL (0.2-1.0); CALCIUM 9.1 mg/dL (8.5-10.3); CREATININE 0.9 mg/dL (0.6-1.2); POTASSIUM 3.7 mmol/L (3.5-5.0); TOTAL PROTEIN 7.4 g/dL (6.7-8.2)
[2021-08-04 09:30] VITALS: BP 150/93
== END 2021-08-04 09:48 | disposition home or self-care (01) ==
LOC: ED 07:33
DX: R06.02 Shortness of breath (principal); I10 Essential (primary) hypertension; R07.9 Chest pain, unspecified; R51.9 Headache, unspecified; M79.10 Myalgia, unspecified site; R68.83 Chills (without fever); Z20.822 Contact with and (suspected) exposure to COVID-19
CPT/HCPCS: 36415; 80053; 83690; 83880; 84484; 85025; 93005; 94664; 96374; 96375; 99283

== ENCOUNTER 2021-11-08 22:18 | Emergency (ER) | payer MEDICAID ==
[2021-11-08 22:25] VITALS: BP 155/96
--- NOTE | 2021-11-08 23:04 | XRAY Report ---
PROCEDURE: Ankle 3 View LT INDICATIONS: Trauma TECHNIQUE: 3 views of the ankle were acquired. COMPARISON: None FINDINGS: Bones: No fractures or dislocations. Ankle mortise is normally aligned. No suspicious bony lesions . Soft tissues: No tibiotalar joint effusion. Achilles tendon appears normal. IMPRESSION: Soft tissue swelling over the lateral malleolus is present but no fracture or traumatic subluxation is found. Reviewed by: Wiliam Al MD on 11/08/2021 11:03 PM [facility] Approved by: Wiliam Al MD on 11/08/2021 11:03 PM [facility] Station ID: [id number]
--- NOTE | 2021-11-08 23:13 | ED Physician Documentation ---
PD HPI LOWER EXT INJURY - Stated complaint Stated Complaint: L ANKLE INJURY - Chief complaint Chief Complaint: Trauma Ext - History obtained from History obtained from: Patient - History of Present Illness PD HPI LOW EXT INJURY LOCATION: Left, Ankle - Additional information Additional information: Patient was walking at home this evening when he rolled his left ankle and felt pain in the ankle and in the lower leg. He did not fall down to the ground or hit his head or sustain any other injury. He reports sharp pain with weightbearing.Trying to ambulate makes his pain worse. He denies previous injuries to the extremity. He does not take any blood thinners. Review of Systems Constitutional: denies: Fever Nose: denies: Rhinorrhea / runny nose Cardiac: denies: Chest pain / pressure Respiratory: denies: Dyspnea GI: denies: Abdominal Pain Skin: denies: Rash Musculoskeletal: reports: Joint pain Neurologic: denies: Syncope PD PAST MEDICAL HISTORY - Past Medical History Past Medical History: Yes Cardiovascular: Hypertension Respiratory: None Neuro: Headaches Endocrine/Autoimmune: None GI: Crohn's disease : Kidney stones HEENT: None Psych: None Musculoskeletal: None Derm: None - Past Surgical History Past Surgical History: Yes General: Cholecystectomy Ortho: Rotator cuff repair, Arthroscopic surgery - Present Medications Home Medications: Ambulatory Orders Medication Instructions Recorded Confirmed lisinopriL [Lisinopril] 10 mg PO DAILY 30 Days #30 tablet 08/04/21 11/08/21 Tizanidine HCl 2 - 4 tab PO HS PRN 11/08/21 11/08/21 - Allergies Allergies/Adverse Reactions: Allergies Allergy/AdvReac Type Severity Reaction Status Date / Time codeine AdvReac Unknown Verified 11/08/21 22:20 cyclobenzaprine AdvReac Cramps Verified 11/08/21 22:20 [From Flexeril] morphine AdvReac Cramps Verified 11/08/21 22:20 - Social History Does the pt smoke?: No Smoking Status: Never smoker Does the pt drink ETOH?: No Does the pt have substance abuse?: No - Immunizations Immunizations are current?: Yes Immunizations: TDAP current <10years - POLST Patient has POLST: No PD ED PE NORMAL - General General: Alert and oriented X 3 - HEENT HEENT: Atraumatic - Neck Neck: Supple, no meningeal sign - Cardiac Cardiac: RRR - Respiratory Respiratory: No respiratory distress - Derm Derm: Normal color, Warm and dry - Extremities Extremities: No deformity, Other (Tenderness over left lateral malleolus and distal fibulaWith no swelling, deformity, skin break, distal pulses intact, Compartments of extremity are soft, No pain to the foot) - Neuro Neuro: Alert and oriented X 3, No motor deficit, No sensory deficit PD ED PE EXPANDED - Visual Whole body visual: 1 - tenderness Results - Vitals Vitals: Vital Signs - 24 hr 11/08/21 22:21 Temperature 36.8 C Heart Rate 87 Respiratory 18 Rate Blood Pressure 155/96 H O2 Saturation 100 Oxygen O2 Source Room air PD MEDICAL DECISION MAKING - ED course ED course: Patient with left ankle and lower leg pain after injury this evening. No injuries elsewhere. Patient is neurovascularly intact. Compartments of extremi ty are soft. X-ray is negative for fracture dislocation. Conservative management was recommended with Dragan wrap and crutches along with ice and imbj-jgn-[id number] analgesics. Departure - Departure Disposition: 01 Home, Self Care Clinical Impression: Ankle injury Condition: Stable Instructions: ED Sprain Ankle W X Ray Comments: Your x-rays do not show a broken or out of place bone.You likely have a sprain.Please use crutches and Dragan wrap as needed. I would also recommend using an anti-inflammatory medication such as Motrin or Tylenol for pain as needed, icing the ankle, elevating the ankle to help with any swelling. Discharge Date/Time: 11/08/21 23:52
[2021-11-08] MEDS ORDERED: ACETAMINOPHEN 325 MG TABLET PO STA (23:38)
--- NOTE | 2021-11-08 23:48 | XRAY Report ---
PROCEDURE: Tib/Fib LT INDICATIONS: pain TECHNIQUE: 2 views of the tibia and fibula were acquired. COMPARISON: None FINDINGS: Bones: No fractures or dislocations. No suspicious bony lesions. Soft tissues: No suspicious soft tissue calcifications or masses. IMPRESSION: No trauma found. Reviewed by: Wiliam Al MD on 11/08/2021 11:48 PM PST Approved by: Wiliam Al MD on 11/08/2021 11:48 PM [facility] Station ID: [id number]
== END 2021-11-08 23:52 | disposition home or self-care (01) ==
LOC: ED 22:18
DX: S99.912A Unspecified injury of left ankle, initial encounter (principal); X50.1XXA Overexertion from prolonged static or awkward postures, initial encounter; Y92.009 Unspecified place in unspecified non-institutional (private) residence as the place of occurrence of the external cause; I10 Essential (primary) hypertension
CPT/HCPCS: 73590; 73610; 99282; 99283; A9270

== ENCOUNTER 2021-11-11 18:09 | Outpatient (CLI) | payer MEDICAID ==
--- NOTE | 2021-11-11 19:19 | Ultrasound Report ---
PROCEDURE: Duplex Ext Veins Left INDICATIONS: LT CALF PAIN TECHNIQUE: Real-time imaging, as well as color and pulse Doppler interrogation, were performed of the lower extr emity deep veins from the inguinal ligament to the popliteal fossa. COMPARISON: None. FINDINGS: The deep veins are normally compressible, and free of intraluminal thrombus. Color and pu lse Doppler demonstrate normal phasic intraluminal flow. There is normal augmentation response to di stal compression maneuver. The wall of the lesser saphenous vein appears to be slightly thickened but overall patent. This is of unknown clinical significance. IMPRESSION: Negative for deep venous thrombosis of the left lower extremity. Nonspecific mild wall t hickening of the lesser saphenous vein. This vessel is patent. This is of unknown clinical significan ce. Recommend clinical follow-up. Reviewed by: Canelo Simeon MD on 11/11/2021 7:17 PM PST Approved by: Canelo Simeon MD on 11/11/2021 7:17 PM PST Station ID: [id number]
== END 2021-11-11 18:10 | disposition home or self-care (01) ==
LOC: DI 18:09
PROVIDERS: ATTEND Physician Assistant
DX: M79.662 Pain in left lower leg (principal)

== ENCOUNTER 2022-02-22 22:35 | Emergency (ER) | payer MEDICAID ==
--- NOTE | 2022-02-22 22:42 | ED Physician Documentation ---
PD HPI ABD PAIN - Stated complaint Stated Complaint: ABD AND BACK PX - Chief complaint Chief Complaint: Abd Pain - History obtained from History obtained from: Patient - History of Present Illness Timing - onset: How many days ago (2) Timing - duration: Days (2) Timing - details: Gradual onset, Waxing and waning Pain level now: 6 Quality: Pain Location: RUQ Radiation: Other (RLQ), Right flank Improved by: Other (mild improvement with heating pad) Worsened by: Other (no exacerbating factors) Associated symptoms: Nausea, Diarrhea. No: Fever, Vomiting, Constipation, Melena, Hematochezia, Hematuria Recently seen: Not recently seen - Additional information Additional information: c/o 2 days of waxing and waning right-sided abdominal and right flank pain. Nausea but no vomiting. He feels the pain is similar to previous episodes of renal colic. Has also been having diarrhea since yesterday. Review of Systems Constitutional: reports: Reviewed and negative Cardiac: reports: Reviewed and negative Respiratory: reports: Reviewed and negative GI: reports: Abdominal Pain, Nausea, Diarrhea. denies: Vomiting, Constipation, Bloody / black stool : denies: Dysuria, Frequency, Hematuria PD PAST MEDICAL HISTORY - Past Medical History Cardiovascular: Hypertension Respiratory: None Neuro: Headaches Endocrine/Autoimmune: None GI: Crohn's disease : Kidney stones HEENT: None Psych: None Musculoskeletal: None Derm: None - Past Surgical History Past Surgical History: Yes General: Cholecystectomy Ortho: Rotator cuff repair, Arthroscopic surgery - Present Medications Home Medications: Ambulatory Orders Medication Instructions Recorded Confirmed lisinopriL [Lisinopril] 10 mg PO DAILY 30 Days #30 tablet 08/04/21 02/22/22 Tizanidine HCl 2 - 4 tab PO HS PRN 11/08/21 02/22/22 HYDROcod/ACETAM 5/325 [[place] 5/325] 1 - 2 tablet PO Q6H PRN #14 tablet 02/23/22 Ondansetron Odt [Zofran Odt] 4 mg TL Q6H PRN #10 tablet 02/23/22 - Allergies Allergies/Adverse Reactions: Allergies Allergy/AdvReac Type Severity Reaction Status Date / Time codeine AdvReac Unknown Verified 11/08/21 22:20 cyclobenzaprine AdvReac Cramps Verified 11/08/21 22:20 [From Flexeril] morphine AdvReac Cramps Verified 11/08/21 22:20 - Social History Does the pt smoke?: No Smoking Status: Never smoker Does the pt drink ETOH?: No Does the pt have substance abuse?: No - Immunizations Immunizations are current?: Yes Immunizations: TDAP current <10years - POLST Patient has POLST: No PD ED PE NORMAL - Vitals Vital signs reviewed: Yes - General General: Alert and oriented X 3, No acute distress, Well developed/nourished - HEENT HEENT: Moist mucous membranes - Cardiac Cardiac: RRR, No murmur - Respiratory Respiratory: No respiratory distress, Clear bilaterally - Abdomen Abdomen: Soft, Non distended, Other (mild RUQ and RLQ TTP without rebound or guarding; the tenderness is more pronounced in RLQ) Results - Vitals Vitals: Vital Signs - 24 hr 02/22/22 02/22/22 02/23/22 22:39 23:38 00:36 Temperature 36.4 C L 36.5 C Heart Rate 99 81 82 Respiratory 18 16 16 Rate Blood Pressure 170/84 H 146/91 H 144/89 H O2 Saturation 98 99 99 Oxygen O2 Source Room air - Labs Labs: Laboratory Tests 02/22/22 02/22/22 02/23/22 22:46 22:46 00:05 WBC 9.8 RBC 5.45 Hgb 15.5 Hct 46.0 MCV 84.4 MCH 28.4 MCHC 33.7 RDW 13.0 Plt Count 305 MPV 9.7 Neut # (Auto) 5.2 Lymph # (Auto) 3.4 [place] # (Auto) 0.8 Eos # (Auto) 0.3 Baso # (Auto) 0.1 Absolute Nucleated RBC 0.00 Nucleated RBC % 0.0 Sodium 141 Potassium 3.9 Chloride 106 Carbon Dioxide 25 Anion Gap 10.0 BUN 18 Creatinine 1.0 Estimated GFR (MDRD) 85 L Glucose 103 H Calcium 9.1 Total Bilirubin 0.7 AST 19 ALT 34 Alkaline Phosphatase 76 Total Protein 7.2 Albumin 4.1 Globulin 3.1 Albumin/Globulin Ratio 1.3 Lipase 42 Urine Color YELLOW Urine Clarity CLEAR Urine pH 6.0 Ur Specific [place] >=1.030 H Urine Protein NEGATIVE Urine Glucose (UA) NEGATIVE Urine Ketones NEGATIVE Urine Occult Blood NEGATIVE Urine Nitrite NEGATIVE Urine Bilirubin NEGATIVE Urine Urobilinogen 4 H Ur Leukocyte Esterase NEGATIVE Ur Microscopic Review NOT INDICATED Urine Culture Comments NOT INDICATED - Rads (name of study) CT A/P Radiology: Prelim report reviewed, See rad report PD MEDICAL DECISION MAKING - ED course Complexity details: reviewed old records, reviewed results, re-evaluated patient, considered differential, d/w patient ED course: Presents with right-sided abdominal pain and tenderness to palpation on exam. He is afebrile and blood tests are normal (CBC, ER abdominal panel). UA only positive for urobilinogen and high specific gravity. He has had a cholec ystectomy. CT A/P does not demonstrate any concerning / acute findings; no evidence of obstructive uropathy nor appendicitis. Patient says he has h/o crohn's disease but does not feel these symptoms are similar to previous flares. The lack of findings on CT as well as normal WBC also suggest against these symptoms being due to crohn's flare. CT A/P was performed without contrast due to national (and severe local) shortage of IV contrast. Results d/w patient. I explained that the cause of his pain is not apparent at this time, advised return if worse, follow up with PMD within 3-5 days if symp toms have not resolved. He was given zofran and toradol in ED, reported improvement in nausea but inadequate pain relief. He is driving home and thus take-home pack of vicodin (and zofran) provided, with Rx for these two prescriptions electronically submitted to his pharmacy of choice. I am prescribing a short course of short-acting opioid pain medication for this patient. I have reviewed the patients [employer] and no concerning findings were noted. I have discussed that the opioids are for short term therapy only, and will not be refilled from the ED Departure - Departure Disposition: 01 Home, Self Care Clinical Impression: Abdominal pain Qualifiers: Abdominal location: right upper quadrant Qualified Code(s): R10.11 - Right upper quadrant pain Condition: Good Instructions: ED Abdominal Pain Unkn Cause Male Prescriptions: HYDROcod/ACETAM 5/325 [[place] 5/325] 1 - 2 tablet PO Q6H PRN #14 tablet PRN Reason: Pain Ondansetron Odt [Zofran Odt] 4 mg TL Q6H PRN #10 tablet PRN Reason: Nausea / Vomiting Comments: The results of tonight's tests are unremarkable; the cause of your abdominal/flank pain is not apparent at this time. There are no findings to suggest renal colic (kidney stone) nor appendicitis. the blood tests were also reassuringly unremarkable. Prescriptions for hydrocodone/acetaminophen and ondansetron have been electronically submitted to [facility] pharmacy in [place]. Follow up with your primary care provider in 2-3 days if symptoms have not resolved. You can always return to the emergency department for reevaluation if your symptoms worsen. I am prescribing a short course of narcotic pain medication for you. These are potentially dangerous and addictive medications that should be used carefully. These medications may constipate you. Take an [id number] stool softener (docusate) twice daily with plenty of water while taking these medications. If you go 24 hours without a bowel movement, take gloe-fgk-ozudufe miralax, per package instructions. Do not drink or drive while taking these medications. If you received narcotic or sedating medications while in the emergency department, do not drive for 24 hours. Store this medication in a safe, secure place and out of reach of children. It is a violation of federal law to give or sell this medication to another person or to use in a manner other than prescribed. The ED will not refill narcotic prescriptions, including prescriptions lost or stolen. To dispose of unwanted medications: 1. [facility] at [address] in [place] has a medication drop box. They accept prescription medications (in pill form) Wednesday through Wednesday 9:00 a.m. to 5:00 p.m. 2. The [facility] [employer] accepts prescription medications (in pill form only) for disposal year round. Call for more information. 3. Contact the [facility] for the next [facility] sponsored prescription dr ug collection event. , [phone], or [phone]; Discharge Date/Time: 02/23/22 00:47
[2022-02-22 22:58] LABS: BASOPHILS # (AUTO) 0.1 10^3/uL (0.0-0.1); BASOPHILS % (AUTO) 0.6 %; EOSINOPHILS # (AUTO) 0.3 10^3/uL (0.0-0.7); EOSINOPHILS % (AUTO) 2.6 %; HGB - HEMOGLOBIN 15.5 g/dL (14.0-18.0); LYMPHOCYTES # (AUTO) 3.4 10^3/uL (1.5-3.5); LYMPHOCYTES % (AUTO) 35.1 %; MEAN CORPUSCULAR HEMOGLOBIN 28.4 pg (27.0-31.0); MEAN CORPUSCULAR HGB CONC 33.7 g/dL (32.0-36.0); MEAN CORPUSCULAR VOLUME 84.4 fL (80.0-94.0); MEAN PLATELET VOLUME 9.7 fL (7.4-11.4); MONOCYTES # (AUTO) 0.8 10^3/uL (0.0-1.0); MONOCYTES % (AUTO) 8.1 %; NEUTROPHILS # (AUTO) 5.2 10^3/uL (1.5-6.6); NEUTROPHILS % (AUTO) 53.1 %; PLT - PLATELET COUNT 305 10^3/uL (130-450); RED BLOOD COUNT 5.45 10^6/uL (4.70-6.10); WHITE BLOOD COUNT 9.8 x10^3/uL (4.8-10.8)
[2022-02-22] MEDS ORDERED: KETOROLAC 30 MG/ML VIAL IVP STA (23:02)
[2022-02-22] MEDS ORDERED: ONDANSETRON 4 MG/2 ML VIAL IVP STA (23:02)
[2022-02-22 23:10] LABS: ALBUMIN 4.1 g/dL (3.2-5.5); ALBUMIN/GLOBULIN RATIO 1.3 (1.0-2.2); BILIRUBIN,TOTAL 0.7 mg/dL (0.2-1.0); CALCIUM 9.1 mg/dL (8.5-10.3); POTASSIUM 3.9 mmol/L (3.5-5.0); TOTAL PROTEIN 7.2 g/dL (6.7-8.2)
--- NOTE | 2022-02-22 23:57 | CT Report ---
PROCEDURE: Abdomen/Pelvis WO INDICATIONS: RLQ pain TECHNIQUE: Noncontrast 5 mm thick sections acquired from the diaphragms to the symphysis. 5 mm coronal and sagi ttal reformats were then performed. For radiation dose reduction, the following was used: automated exposure control, adjustment of mA and/or kV according to patient size. COMPARISON: CT abdomen pelvis 02/23/2021. FINDINGS: Image quality: There is motion artifact limiting evaluation. Lung bases:There is minimal dependent atelectasis. Heart: Heart is normal in size. ABDOMEN: Liver:Noncontrast evaluation demonstrates no discrete hepatic mass. Gallbladder:Surgically absent. Biliary ducts: No biliary ductal dilatation. Pancreas: Unremarkable. Spleen: Normal in size. Adrenal Glands: No adrenal nodules. Kidneys and Ureters: No hydronephrosis or nephrolithiasis. Stomach and Bowel: Stomach, small bowel loops, and colon are normal in caliber and wall thickness. T he appendix is normal in appearance. Peritoneum: No abnormal intraperitoneal fluid. No free air. Ventral Wall: No hernia. Abdominal Nodes: No retroperitoneal or mesenteric adenopathy by size criteria. Vessels: Aorta and inferior vena cava are normal in size. PELVIS: Pelvic Organs: Unremarkable. Bladder: Unremarkable. Pelvic Nodes: No enlarged lymph nodes. Miscellaneous: No inguinal hernias are seen. Bones: Visualized osseous structures demonstrate no suspicious focal lesions. IMPRESSION: 1. No definite acute intra-abdominal abnormality. Specifically, no evidence of appendicitis or obstru ctive uropathy. Reviewed by: Thai Taylor MD on 02/22/2022 11:56 PM PDT Approved by: Thai Taylor MD on 02/22/2022 11:56 PM PDT Station ID: [id number]
[2022-02-23 00:18] LABS: BILIRUBIN,URINE NEGATIVE (NEGATIVE); GLUCOSE, URINE (UA) NEGATIVE (NEGATIVE); KETONES,URINE (UA) NEGATIVE (NEGATIVE); LEUKOCYTE ESTERASE, URINE NEGATIVE (NEGATIVE); NITRITE,URINE NEGATIVE (NEGATIVE); OCCULT BLOOD,URINE NEGATIVE (NEGATIVE); PROTEIN,URINE NEGATIVE (NEGATIVE); UROBILINOGEN,URINE 4 E.U./dL (NORMAL)
[2022-02-23 00:24] LABS: CLARITY,URINE CLEAR (CLEAR)
[2022-02-23] MEDS ORDERED: HYDROcod/ACET 5/325 Prepack 4 PO STA (00:27)
[2022-02-23] MEDS ORDERED: ONDANSETRON ODT 4 MG Prepack 2 TL PRN (00:28)
[2022-02-23 00:37] VITALS: BP 144/89
== END 2022-02-23 00:47 | disposition home or self-care (01) ==
LOC: ED 22:35
DX: R10.11 Right upper quadrant pain (principal); R10.31 Right lower quadrant pain
CPT/HCPCS: 36415; 80053; 81001; 81003; 83690; 85025; 87086; 96374; 96375; 99284

== ENCOUNTER 2022-04-03 03:45 | Emergency (ER) | payer MEDICAID ==
--- NOTE | 2022-04-03 04:10 | ED Physician Documentation ---
History of Present Illness - Stated complaint Stated Complaint: mouth pain - Chief complaint Chief Complaint: Heent - History obtained from History obtained from: Patient - History of Present Illness Timing: How many days ago (2) - Additonal information Additional information: 37 old male with no significant past medical history presents for 2 days of right-sided jaw pain and an area of swelling over his left jaw. Patient states that he woke up in the middle the night with severe pain in his jaw that was so intense it caused him to throw up. He states that he tried to call his dentist but they are not able to fit him in for over a month, so he presented here for evaluation. Patient states that he has had his molars and teeth removed several years ago, he has not had any issues since they were removed. Denies drooling, difficulty swallowing, difficulty opening his mouth. Review of Systems Ten Systems: 10 systems reviewed and negative Constitutional: reports: Chills. denies: Fever Eyes: denies: Loss of vision, Decreased vision Ears: denies: Loss of hearing, Ear pain, Drainage/discharge, Tinnitus/ringing Nose: denies: Rhinorrhea / runny nose, Reviewed and negative Throat: reports: Dental pain / toothache. denies: Oral lesions / sores, Sore throat, Swollen tonsils, Swallowed foreign body Cardiac: denies: Chest pain / pressure, Palpitations Respiratory: denies: Dyspnea, Cough PD PAST MEDICAL HISTORY - Past Medical History Cardiovascular: Hypertension Respiratory: None Neuro: Headaches Endocrine/Autoimmune: None GI: Crohn's disease : Kidney stones HEENT: None Psych: None Musculoskeletal: None Derm: None - Past Surgical History Past Surgical History: Yes General: Cholecystectomy Ortho: Rotator cuff repair, Arthroscopic surgery - Present Medications Home Medications: Ambulatory Orders Medication Instructions Recorded Confirmed lisinopriL [Lisinopril] 10 mg PO DAILY 30 Days #30 tablet 08/04/21 02/22/22 Tizanidine HCl 2 - 4 tab PO HS PRN 11/08/21 02/22/22 HYDROcod/ACETAM 5/325 [[place] 5/325] 1 - 2 tablet PO Q6H PRN #14 tablet 02/23/22 Ondansetron Odt [Zofran Odt] 4 mg TL Q6H PRN #10 tablet 02/23/22 Amox/Clav 875/125 [Augmentin] 1 each PO Q12H #20 tablet 04/03/22 Oxycodone HCl/Acetaminophen 1 - 2 each PO Q6H PRN #6 tablet 04/03/22 [Percocet 5-325 mg Tablet] - Allergies Allergies/Adverse Reactions: Allergies Allergy/AdvReac Type Severity Reaction Status Date / Time codeine AdvReac Unknown Verified 04/03/22 03:55 cyclobenzaprine AdvReac Cramps Verified 04/03/22 03:55 [From Flexeril] morphine AdvReac Cramps Verified 04/03/22 03:55 - Social History Does the pt smoke?: No Smoking Status: Never smoker Does the pt drink ETOH?: No Does the pt have substance abuse?: No - Immunizations Immunizations are current?: Yes Immunizations: TDAP current <10years - POLST Patient has POLST: No PD ED PE NORMAL - Vitals Vital signs reviewed: Yes - General General: Alert and oriented X 3, No acute distress, Well developed/nourished - HEENT HEENT: Atraumatic, PERRL, EOMI, Ears normal, Moist mucous membranes, Pharynx benign, Dentition benign, Other (Submandibular firm, tender adenopathy. 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, No motor deficit, No sensory deficit, Normal speech - Psych Psych: Normal mood, Normal affect Results - Vitals Vitals: Vital Signs - 24 hr 04/03/22 04/03/22 03:52 06:35 Temperature 37.1 C 36.8 C Heart Rate 97 88 Respiratory 18 18 Rate Blood Pressure 150/96 H 137/76 H O2 Saturation 100 99 Oxygen O2 Source Room air - Labs Labs: Laboratory Tests 04/03/22 04/03/22 05:07 05:07 WBC 10.8 RBC 5.22 Hgb 15.0 Hct 43.9 MCV 84.1 MCH 28.7 MCHC 34.2 RDW 13.2 Plt Count 278 MPV 9.5 Neut # (Auto) 6.6 Lymph # (Auto) 3.0 [place] # (Auto) 0.8 Eos # (Auto) 0.3 Baso # (Auto) 0.1 Absolute Nucleated RBC 0.00 Nucleated RBC % 0.0 Sodium 138 Potassium 3.9 Chloride 106 Carbon Dioxide 25 Anion Gap 7.0 BUN 16 Creatinine 1.0 Estimated GFR (MDRD) 85 L Glucose 108 H Calcium 9.1 PD MEDICAL DECISION MAKING - ED course Complexity details: reviewed results, re-evaluated patient, considered differential, d/w patient ED course: Jaw pain and swelling, dentition is normal, no obvious cause for patient's symptoms. He does have significant tenderness palpation on that side. Will obtain CT to assess for abscess versus other underlying pathologies. CT is significant for mild myositis. Uncertain etiology. Will treat presumptively as infectious with Augmentin. Patient given prescription for pain. At this time he is hemodynamically stable, able to tolerate p.o., no drooling, no evidence of airway involvement. Patient was counseled on his finding and recommended follow-up with primary care and dentist as soon as possible. Departure - Departure Disposition: 01 Home, Self Care Clinical Impression: Myositis Qualifiers: Myositis type: unspecified type Myositis location: unspecified site Qualified Code(s): M60.9 - Myositis, unspecified Condition: Stable Instructions: ED Tooth Pain Prescriptions: Amox/Clav 875/125 [Augmentin] 1 each PO Q12H #20 tablet Oxycodone HCl/Acetaminophen [Percocet 5-325 mg Tablet] 1 - 2 each PO Q6H PRN #6 tablet PRN Reason: pain Comments: Your CT shows that you may have a condition called myositis, which is inflammation of the muscle. There is no abscess or jaw infection at this time. I do not know the cause of this finding. We will begin treatment with antibiotics. Take all antibiotics as prescribed. Take Tylenol and Motrin for pain and swelling. Apply ice to your jaw. Please keep your follow-up appointment with your dentist, see if you can move the appointment up if at all possible. Return to the ER if pain worsens, swelling worsens despite antibiotic treatment, or if you are unable to open your jaw. RX sent to [facility] in [place] Discharge Date/Time: 04/03/22 06:45
[2022-04-03] MEDS ORDERED: KETOROLAC 30 MG/ML VIAL IM STA (04:11)
[2022-04-03 05:11] LABS: BASOPHILS # (AUTO) 0.1 10^3/uL (0.0-0.1); BASOPHILS % (AUTO) 0.5 %; EOSINOPHILS # (AUTO) 0.3 10^3/uL (0.0-0.7); EOSINOPHILS % (AUTO) 2.6 %; HCT - HEMATOCRIT 43.9 % (42.0-52.0); LYMPHOCYTES % (AUTO) 28.1 %; MEAN CORPUSCULAR HEMOGLOBIN 28.7 pg (27.0-31.0); MEAN CORPUSCULAR HGB CONC 34.2 g/dL (32.0-36.0); MEAN CORPUSCULAR VOLUME 84.1 fL (80.0-94.0); MEAN PLATELET VOLUME 9.5 fL (7.4-11.4); MONOCYTES # (AUTO) 0.8 10^3/uL (0.0-1.0); MONOCYTES % (AUTO) 7.7 %; NEUTROPHILS # (AUTO) 6.6 10^3/uL (1.5-6.6); NEUTROPHILS % (AUTO) 60.7 %; PLT - PLATELET COUNT 278 10^3/uL (130-450); RED BLOOD COUNT 5.22 10^6/uL (4.70-6.10); RED CELL DISTRIBUTION WIDTH 13.2 % (12.0-15.0); WHITE BLOOD COUNT 10.8 x10^3/uL (4.8-10.8)
[2022-04-03 05:20] LABS: CALCIUM 9.1 mg/dL (8.5-10.3); POTASSIUM 3.9 mmol/L (3.5-5.0)
[2022-04-03] MEDS ORDERED: oxyCODONE 5 MG TABLET PO STA (05:33)
[2022-04-03 06:36] VITALS: BP 137/76
--- NOTE | 2022-04-03 08:22 | CT Report ---
PROCEDURE: SOFT TISSUE NECK W INDICATIONS: R JAW PAIN, SUBMANDIBULAR SWELLING CONTRAST: IV CONTRAST: Optiray 320 ml: 100 PO CONTRAST: *NO PO CONTRAST TECHNIQUE: After the administration of intravenous contrast, 3.0 mm axial sections acquired from the sella to th e aortic arch. Additional oblique axial 3.0 mm sections acquired through the pharynx. 3 mm thick co sveta reformats were generated. For radiation dose reduction, the following was used: automated exp osure control, adjustment of mA and/or kV according to patient size. COMPARISON: None. FINDINGS: Image quality: Excellent. A radiopaque marker was placed at the site of palpable concern. Lymph nodes: No enlarged lymph nodes seen throughout the neck. Vessels: Visualized vasculature appears patent. Neck spaces: The oropharynx, nasopharynx, and pharynx demonstrate no mucosal lesions. The vocal cor ds, false vocal cords, pyriform sinuses, epiglottis, vallecula, and tongue base all appear normal. E xtramucosal spaces appear unremarkable. Glands: The parotid and submandibular glands appear normal. The thyroid is normal in size and there are no incidental findings. Miscellaneous: Visualized brain and orbits appear normal. Lung apices appear clear. Superficial sof t tissues adjacent to the radio opaque marker demonstrates slight thickening and decreased density of the muscle overlying the anterior aspect of the right mandible likely representing portions of the p latysma and depressor anguli timo muscle. No focal fluid collection is seen in this region. The under lying bone is normal in appearance. There is slight prominence of the submandibular lymph nodes bilat erally. Bones: No suspicious bony lesions. Visualized sinuses and mastoids appear unremarkable. IMPRESSION: Findings most suggestive of mild myositis at the site of clinical concern. There is no as sociated abscess or underlying bony abnormality. Slightly prominent bilateral submandibular lymph nod es are present and are likely reactive in etiology.These findings are very subtle however and could b e due to artifact from the metallic marker. Reviewed by: Russell Magaña on 04/03/2022 8:20 AM PDT Approved by: Russell Magaña on 04/03/2022 8:20 AM PDT Station ID: [id number]
== END 2022-04-03 06:45 | disposition home or self-care (01) ==
LOC: ED 03:45
DX: M60.9 Myositis, unspecified (principal)
CPT/HCPCS: 36415; 70491; 80048; 85025; 96372; 99284; A9270; Q9967

== ENCOUNTER 2022-06-19 03:49 | Emergency (ER) | payer MEDICAID ==
--- NOTE | 2022-06-19 04:01 | ED Physician Documentation ---
PD HPI CHEST PAIN - Stated complaint Stated Complaint: CP PD PAST MEDICAL HISTORY - Past Medical History Cardiovascular: Hypertension Respiratory: None Neuro: Headaches Endocrine/Autoimmune: None GI: Crohn's disease : Kidney stones HEENT: None Psych: None Musculoskeletal: None Derm: None - Past Surgical History Past Surgical History: Yes General: Cholecystectomy Ortho: Rotator cuff repair, Arthroscopic surgery - Present Medications Home Medications: Ambulatory Orders Medication Instructions Recorded Confirmed lisinopriL [Lisinopril] 10 mg PO DAILY 30 Days #30 tablet 08/04/21 02/22/22 Tizanidine HCl 2 - 4 tab PO HS PRN 11/08/21 02/22/22 HYDROcod/ACETAM 5/325 [[place] 5/325] 1 - 2 tablet PO Q6H PRN #14 tablet 02/23/22 Ondansetron Odt [Zofran Odt] 4 mg TL Q6H PRN #10 tablet 02/23/22 Amox/Clav 875/125 [Augmentin] 1 each PO Q12H #20 tablet 04/03/22 Oxycodone HCl/Acetaminophen 1 - 2 each PO Q6H PRN #6 tablet 04/03/22 [Percocet 5-325 mg Tablet] - Allergies Allergies/Adverse Reactions: Allergies Allergy/AdvReac Type Severity Reaction Status Date / Time codeine AdvReac Unknown Verified 06/19/22 04:01 cyclobenzaprine AdvReac Cramps Verified 06/19/22 04:01 [From Flexeril] morphine AdvReac Cramps Verified 06/19/22 04:01 - Social History Does the pt smoke?: No Smoking Status: Never smoker Does the pt drink ETOH?: No Does the pt have substance abuse?: No - Immunizations Immunizations are current?: Yes Immunizations: TDAP current <10years - POLST Patient has POLST: No Results - Vitals Vitals: Vital Signs - 24 hr 06/19/22 03:57 Temperature 36.7 C Heart Rate 106 H Respiratory 10 L Rate Blood Pressure 163/108 H O2 Saturation 99 Oxygen O2 Source Room air - EKG (time done) No standard instances Rate: Rate (enter#) (101) Rhythm: Sinus tachycardia [place]: Normal QRS: Normal Ischemia: Normal ST segments, T wave inversion (III (inverted) aVF (flat))
[2022-06-19] MEDS ORDERED: SODIUM CHLORIDE 0.9% 1,000 ML IV STA (04:28)
[2022-06-19] MEDS ORDERED: ONDANSETRON 4 MG/2 ML VIAL IVP STA (04:28)
[2022-06-19] MEDS ORDERED: KETOROLAC 30 MG/ML VIAL IVP STA (04:29)
[2022-06-19] MEDS ORDERED: HYDROmorphone 1 MG/ML CARPUJECT IVP STA ×2 (04:29→06:36)
[2022-06-19] MEDS ORDERED: iohexoL-300 100 ML VIAL ONE (04:32)
--- NOTE | 2022-06-19 04:35 | ED Physician Documentation ---
PD HPI ABD PAIN - Stated complaint Stated Complaint: CP - Chief complaint Chief Complaint: Cardiac - History obtained from History obtained from: Patient - History of Present Illness Timing - onset: How many minutes ago (90) Timing - details: Abrupt onset Pain level now: 8 Quality: Pain Location: RUQ, Epigastric Radiation: Chest (midline low chest) Improved by: Other (nothing) Worsened by: Palpation Associated symptoms: Nausea, Vomiting. No: Fever, Hematemesis, Diarrhea, Constipation, Melena, Hematochezia Review of Systems Constitutional: reports: Reviewed and negative Cardiac: reports: Chest pain / pressure. denies: Palpitations, Pedal edema, Calf pain Respiratory: reports: Reviewed and negative GI: reports: Abdominal Pain, Nausea, Vomiting. denies: Abdominal Swelling, Constipation, Diarrhea, Hematemesis, Bloody / black stool : denies: Dysuria, Frequency PD PAST MEDICAL HISTORY - Past Medical History Cardiovascular: Hypertension Respiratory: None Neuro: Headaches Endocrine/Autoimmune: None GI: Crohn's disease : Kidney stones HEENT: None Psych: None Musculoskeletal: None Derm: None - Past Surgical History Past Surgical History: Yes General: Cholecystectomy Ortho: Rotator cuff repair, Arthroscopic surgery - Present Medications Home Medications: Ambulatory Orders Medication Instructions Recorded Confirmed lisinopriL [Lisinopril] 10 mg PO DAILY 30 Days #30 tablet 08/04/21 06/19/22 Ondansetron Odt [Zofran Odt] 4 mg TL Q6H PRN #14 tablet 06/19/22 traMADol [Ultram] 50 - 100 mg PO Q6H PRN #20 tablet 06/19/22 - Allergies Allergies/Adverse Reactions: Allergies Allergy/AdvReac Type Severity Reaction Status Date / Time codeine AdvReac Unknown Verified 06/19/22 04:01 cyclobenzaprine AdvReac Cramps Verified 06/19/22 04:01 [From Flexeril] morphine AdvReac Cramps Verified 06/19/22 04:01 - Social History Does the pt smoke?: No Smoking Status: Never smoker Does the pt drink ETOH?: No Does the pt have substance abuse?: No - Immunizations Immunizations are current?: Yes Immunizations: TDAP current <10years - POLST Patient has POLST: No PD ED PE NORMAL - Vitals Vital signs reviewed: Yes - General General: Alert and oriented X 3, No acute distress, Well developed/nourished - Cardiac Cardiac: RRR, No murmur, No gallop, No rub - Respiratory Respiratory: No respiratory distress, Clear bilaterally - Abdomen Abdomen: Soft, Other (TTP epigastrium and RUQ without rebound or guarding) - Back Back: No CVA TTP - Derm Derm: Normal color Results - Vitals Vitals: Vital Signs - 24 hr 06/19/22 06/19/22 06/19/22 03:57 06:00 06:45 Temperature 36.7 C Heart Rate 106 H 94 89 Respiratory 10 L 16 20 Rate Blood Pressure 163/108 H 131/95 H 131/88 H O2 Saturation 99 98 98 Oxygen O2 Source Room air - Labs Labs: Laboratory Tests 06/19/22 06/19/22 06/19/22 04:39 04:39 05:43 WBC 10.3 RBC 5.48 Hgb 15.5 Hct 45.7 MCV 83.4 MCH 28.3 MCHC 33.9 RDW 13.0 Plt Count 322 MPV 9.7 Neut # (Auto) 5.5 Lymph # (Auto) 3.3 [place] # (Auto) 1.1 H Eos # (Auto) 0.3 Baso # (Auto) 0.0 Absolute Nucleated RBC 0.00 Nucleated RBC % 0.0 Sodium 139 Potassium 3.5 Chloride 105 Carbon Dioxide 24 Anion Gap 10.0 BUN 17 Creatinine 0.9 Estimated GFR (MDRD) 95 Glucose 88 Calcium 9.2 Total Bilirubin 0.7 AST 21 ALT 43 Alkaline Phosphatase 71 Total Protein 7.2 Albumin 4.1 Globulin 3.1 Albumin/Globulin Ratio 1.3 Lipase 45 Urine Color YELLOW Urine Clarity CLEAR Urine pH 6.0 Ur Specific [place] 1.025 Urine Protein NEGATIVE Urine Glucose (UA) NEGATIVE Urine Ketones NEGATIVE Urine Occult Blood NEGATIVE Urine Nitrite NEGATIVE Urine Bilirubin NEGATIVE Urine Urobilinogen 0.2 (NORMAL) Ur Leukocyte Esterase NEGATIVE Ur Microscopic Review NOT INDICATED Urine Culture Comments NOT INDICATED - Rads (name of study) CT A/P with IV contrast Radiology: Prelim report reviewed, See rad report PD MEDICAL DECISION MAKING - ED course Complexity details: reviewed results, re-evaluated patient, considered differential, d/w patient Departure - Departure Disposition: 01 Home, Self Care Clinical Impression: Abdominal pain Condition: Good Instructions: ED Abdominal Pain Unkn Cause Male Prescriptions: traMADol [Ultram] 50 - 100 mg PO Q6H PRN #20 tablet PRN Reason: Pain Ondansetron Odt [Zofran Odt] 4 mg TL Q6H PRN #14 tablet PRN Reason: Nausea / Vomiting Comments: The results of tonight's tests are unremarkable. There are no concerning findings on the blood tests, urinalysis, and CT scan. Follow up with your primary care provider within 1 week for reevaluation. Prescriptions for tramadol (pain medication) and ondansetron (anti-nausea medicatino) have been electronically submitted to [facility] pharmacy in [place]. Discharge Date/Time: 06/19/22 06:52
[2022-06-19 04:44] LABS: BASOPHILS % (AUTO) 0.4 %; EOSINOPHILS # (AUTO) 0.3 10^3/uL (0.0-0.7); EOSINOPHILS % (AUTO) 2.5 %; HCT - HEMATOCRIT 45.7 % (42.0-52.0); HGB - HEMOGLOBIN 15.5 g/dL (14.0-18.0); LYMPHOCYTES # (AUTO) 3.3 10^3/uL (1.5-3.5); LYMPHOCYTES % (AUTO) 32.4 %; MEAN CORPUSCULAR HEMOGLOBIN 28.3 pg (27.0-31.0); MEAN CORPUSCULAR HGB CONC 33.9 g/dL (32.0-36.0); MEAN CORPUSCULAR VOLUME 83.4 fL (80.0-94.0); MEAN PLATELET VOLUME 9.7 fL (7.4-11.4); MONOCYTES # (AUTO) 1.1 10^3/uL (0.0-1.0); MONOCYTES % (AUTO) 10.6 %; NEUTROPHILS # (AUTO) 5.5 10^3/uL (1.5-6.6); NEUTROPHILS % (AUTO) 53.7 %; PLT - PLATELET COUNT 322 10^3/uL (130-450); RED BLOOD COUNT 5.48 10^6/uL (4.70-6.10); WHITE BLOOD COUNT 10.3 x10^3/uL (4.8-10.8)
[2022-06-19 05:01] LABS: ALBUMIN 4.1 g/dL (3.2-5.5); ALBUMIN/GLOBULIN RATIO 1.3 (1.0-2.2); BILIRUBIN,TOTAL 0.7 mg/dL (0.2-1.0); CALCIUM 9.2 mg/dL (8.5-10.3); CREATININE 0.9 mg/dL (0.6-1.2); POTASSIUM 3.5 mmol/L (3.5-5.0); TOTAL PROTEIN 7.2 g/dL (6.7-8.2)
--- OUTSIDE RECORDS SUMMARY | 2022-06-19 05:42 | EXTERNAL MEDICAL SUMMARY RPT | Continuity of Care Document ---
:1985 Author Organization [facility] Address [address] [place] [address] Phone Allergies No information. Encounters No information. Functional Status No information. Immunizations No information. Medications date description facility +0000 oxycodone All [id number] amoxicillin-pot clavulanate All [id number]+0000 oxycodone All [id number]+0000 amoxicillin-pot clavulanate All Problems No information. Procedures date description facility +0000 Visit Code Hold All +0000 IM or SQ Injection All [id number] Ketorolac Tromethamine 30 mg/ml Soln All Results/Labs No information. Social History No information. Vital Signs date measurement value units +0000 BMI BMI 45.91 kg/m2 [id number]+0000 BP_diastolic BP_diastolic 102 mm[H g] [id number]+0000 BP_systolic BP_systolic 156 mm[Hg] 35390279368316+0000 heart_rate heart_rate 87 /min [id number]+0000 height_metric height_metric 180.34 cm [id number]+0000 height_standard height_standard 71 in +0000 respiration_rate respiration_rate 18 /min +0000 temperature_metric temperature_metric 36.56 C [id number]+0000 temperature_standard temperature_standard 9 7.8 F [id number]+0000 weight_metric weight_metric 148.78 kg [id number]+0000 weight_standard weight_standard 328 lb
[2022-06-19] MEDS ORDERED: iohexoL-300 100 ML VIAL IVP ONE (05:47)
[2022-06-19 05:53] LABS: BILIRUBIN,URINE NEGATIVE (NEGATIVE); GLUCOSE, URINE (UA) NEGATIVE (NEGATIVE); KETONES,URINE (UA) NEGATIVE (NEGATIVE); LEUKOCYTE ESTERASE, URINE NEGATIVE (NEGATIVE); NITRITE,URINE NEGATIVE (NEGATIVE); OCCULT BLOOD,URINE NEGATIVE (NEGATIVE); PROTEIN,URINE NEGATIVE (NEGATIVE); UROBILINOGEN,URINE 0.2 (NORMAL) E.U./dL (NORMAL)
[2022-06-19 05:55] LABS: CLARITY,URINE CLEAR (CLEAR)
[2022-06-19 06:46] VITALS: BP 131/88
--- NOTE | 2022-06-19 08:33 | CT Report ---
PROCEDURE: Abdomen/Pelvis W INDICATIONS: RUQ/RLQ pain, tenderness CONTRAST: IV CONTRAST: Isovue 300 ml: 100 PO CONTRAST: *NO PO CONTRAST TECHNIQUE: After the administration of IV contrast, 5 mm thick sections acquired from the diaphragms to the symp hysis. 5 mm thick coronal and sagittal reformats were acquired. For radiation dose reduction, the f ollowing was used: automated exposure control, adjustment of mA and/or kV according to patient size. COMPARISON: CT abdomen and pelvis without, 02/22/2022. CT abdomen and pelvis with, 02/23/2021. FINDINGS: Image quality: Excellent. ABDOMEN: Lung bases: Lung bases are clear. Heart size is normal. Small hiatal hernia. Solid organs: Liver is mildly enlarged. Mild hepatic steatosis. Spleen is normal in size and enhance ment. Gallbladder is surgically removed. Biliary system is non dilated. Pancreas enhances normally . No adrenal nodules. Kidneys demonstrate normal size and enhancement, without hydronephrosis. Peritoneum and bowel: Bowel loops demonstrate normal wall thickness and caliber. Appendix is normal . No free fluid or air. Nodes and vessels: No retroperitoneal or mesenteric adenopathy by size criteria. Aorta and inferior vena cava are normal in size. Miscellaneous: No ventral hernias. PELVIS: Genitourinary: Bladder wall thickness is normal. Miscellaneous: Small fat-containing inguinal hernias are noted. No inguinal adenopathy. Bones: No suspicious bony lesions. No vertebral body compression fractures. IMPRESSION: 1. No acute abnormalities in abdomen or pelvis. 2. Mild hepatomegaly and hepatic steatosis. No significant discrepancy with the preliminary interpretation. Reviewed by: Josué Steven MD on 06/19/2022 8:31 AM PDT Approved by: Josué Steven MD on 06/19/2022 8:31 AM PDT Station ID: [id number]
== END 2022-06-19 06:52 | disposition home or self-care (01) ==
LOC: ED 03:49
DX: R10.9 Unspecified abdominal pain (principal); R11.2 Nausea with vomiting, unspecified; I10 Essential (primary) hypertension
CPT/HCPCS: 36415; 74177; 80053; 81003; 83690; 85025; 93005; 96374; 96375; 96376; 99282; 99284; J1170; Q9967; 81001; 87086

== ENCOUNTER 2022-10-15 20:59 | Emergency (ER) | payer MEDICAID ==
[2022-10-15 21:30] LABS: BILIRUBIN,URINE NEGATIVE (NEGATIVE); GLUCOSE, URINE (UA) NEGATIVE (NEGATIVE); KETONES,URINE (UA) TRACE mg/dL (NEGATIVE); LEUKOCYTE ESTERASE, URINE MODERATE (NEGATIVE); NITRITE,URINE POSITIVE (NEGATIVE); OCCULT BLOOD,URINE LARGE (NEGATIVE); PH,URINE 5.5 PH (5.0-7.5); PROTEIN,URINE 100 mg/dL (NEGATIVE); UROBILINOGEN,URINE 1 (NORMAL) E.U./dL (NORMAL)
[2022-10-15 21:40] LABS: CLARITY,URINE CLOUDY (CLEAR)
[2022-10-15 21:41] LABS: BACTERIA,URINE Few /HPF (None Seen); RBC,URINE TNTC /HPF (0-5); SQUAMOUS EPITHELIAL CELL,UR FEW Squamous (<= Few)
[2022-10-15] MEDS ORDERED: KETOROLAC 30 MG/ML VIAL IVP STA (22:12)
[2022-10-15] MEDS ORDERED: cefTRIAXone 1 GM VIAL IVP STA (22:12)
[2022-10-15] MEDS ORDERED: LIDOCAINE-MPF 2% 10 ML in SODIUM CHLORIDE 0.9% 50 ML IV STA (22:16)
--- NOTE | 2022-10-15 22:16 | ED Physician Documentation ---
History of Present Illness - Stated complaint Stated Complaint: LT FLANK PX - Chief complaint Chief Complaint: Back Pain - History obtained from History obtained from: Patient - History of Present Illness Timing: How many days ago (2) Pain level max: 9 Pain level now: 9 - Additonal information Additional information: 37-year-old male presents to the emergency department left flank pain. This started about 2 days ago. Feels similar to prior kidney stones. Reports blood in the urine and pain with urination as well. No fevers. No chills. No vomiting. No diarrhea. No constipation. Review of Systems Constitutional: denies: Fever, Chills Nose: denies: Rhinorrhea / runny nose Respiratory: denies: Cough GI: reports: Nausea. denies: Vomiting, Diarrhea, Hematemesis, Bloody / black stool : reports: Dysuria, Frequency, Hesitancy, Hematuria. denies: Discharge Skin: denies: Rash Musculoskeletal: denies: Neck pain Neurologic: denies: Headache PD PAST MEDICAL HISTORY - Past Medical History Cardiovascular: Hypertension Respiratory: None Neuro: Headaches Endocrine/Autoimmune: None GI: Crohn's disease : Kidney stones HEENT: None Psych: None Musculoskeletal: None Derm: None - Past Surgical History Past Surgical History: Yes General: Cholecystectomy Ortho: Rotator cuff repair, Arthroscopic surgery - Present Medications Home Medications: Ambulatory Orders Medication Instructions Recorded Confirmed lisinopriL [Lisinopril] 10 mg PO DAILY 30 Days #30 tablet 08/04/21 10/15/22 Ondansetron Odt [Zofran Odt] 4 mg TL Q6H PRN #14 tablet 06/19/22 10/15/22 Cefpodoxime Proxetil [Vantin] 200 mg PO Q12H #40 tablet 10/15/22 Ondansetron Odt [Zofran] 4 mg TL Q6H PRN #10 tablet 10/15/22 Oxycodone HCl/Acetaminophen 1 - 2 each PO Q6H PRN #14 tablet 10/15/22 [Percocet 5-325 mg Tablet] MDD 6 tabs - Allergies Allergies/Adverse Reactions: Allergies Allergy/AdvReac Type Severity Reaction Status Date / Time codeine AdvReac Unknown Verified 10/15/22 21:06 cyclobenzaprine AdvReac Cramps Verified 10/15/22 21:06 [From Flexeril] morphine AdvReac Cramps Verified 10/15/22 21:06 - Social History Does the pt smoke?: No Smoking Status: Never smoker Does the pt drink ETOH?: No Does the pt have substance abuse?: No - Immunizations Immunizations are current?: Yes Immunizations: TDAP current <10years - POLST Patient has POLST: No PD ED PE NORMAL - Vitals Vital signs reviewed: Yes - General General: Alert and oriented X 3, No acute distress - HEENT HEENT: Moist mucous membranes - Neck Neck: Supple, no meningeal sign - Cardiac Cardiac: RRR, Strong equal pulses - Respiratory Respiratory: No respiratory distress, Clear bilaterally - Abdomen Abdomen: Normal bowel sounds, Soft, Non tender, Non distended - Back Back: Other (Mild left CVA tenderness) - Derm Derm: Warm and dry - Extremities Extremities: No edema, No calf tenderness / cord - Neuro Neuro: Alert and oriented X 3 - Psych Psych: Normal mood, Normal affect Results - Vitals Vitals: Vital Signs - 24 hr 10/15/22 10/15/22 10/15/22 21:01 21:06 23:06 Temperature 36.7 C Heart Rate 106 H 93 90 Respiratory 17 15 18 Rate Blood Pressure 145/92 H 135/87 H 186/82 H O2 Saturation 99 100 99 10/15/22 23:35 Temperature Heart Rate 83 Respiratory 19 Rate Blood Pressure 144/85 H O2 Saturation 97 Oxygen O2 Source Room air - Labs Labs: Laboratory Tests 10/15/22 10/15/22 10/15/22 21:18 21:18 21:19 WBC 10.4 RBC 5.88 Hgb 17.0 Hct 50.8 MCV 86.4 MCH 28.9 MCHC 33.5 RDW 13.3 Plt Count 348 MPV 10.4 Neut # (Auto) 5.6 Lymph # (Auto) 3.6 H [place] # (Auto) 0.8 Eos # (Auto) 0.3 Baso # (Auto) 0.1 Absolute Nucleated RBC 0.00 Nucleated RBC % 0.0 Sodium 138 Potassium 3.9 Chloride 102 Carbon Dioxide 26 Anion Gap 10.0 BUN 13 Creatinine 0.9 Estimated GFR (MDRD) 95 Glucose 94 Calcium 9.1 Total Bilirubin 0.5 AST 22 ALT 43 Alkaline Phosphatase 83 Total Protein 8.0 Albumin 4.5 Globulin 3.5 Albumin/Globulin Ratio 1.3 Lipase 75 H Urine Color RED/BLOODY Urine Clarity CLOUDY Urine pH 5.5 Ur Specific [place] 1.025 Urine Protein 100 H Urine Glucose (UA) NEGATIVE Urine Ketones TRACE Urine Occult Blood LARGE H Urine Nitrite POSITIVE H Urine Bilirubin NEGATIVE Urine Urobilinogen 1 (NORMAL) Ur Leukocyte Esterase MODERATE H Urine RBC TNTC H Urine WBC 6-10 H Ur Squamous Epith Cells FEW Squamous Urine Bacteria Few Ur Microscopic Review INDICATED Urine Culture Comments INDICATED - Rads (name of study) CT abdomen pelvis Radiology: Final report received, See rad report PD Medical Decision Making - ED course Complexity details: reviewed results, re-evaluated patient, considered differential, d/w patient, d/w family ED course: 37-year-old male presents the emergency department with left flank pain, similar to prior kidney stones. He has what appears to be a UTI on urinalysis. Normal CBC, normal chemistry other than a minimally elevated lipase. CT abdomen pelvis does not show any acute abnormalities, specifically no ureteral stones. We will treat as a possible early pyelonephritis. Given IV Rocephin here. He was also given IV lidocaine and oral oxycodone. We will place on pain medication and antibiotics for home. No evidence of sepsis. Patient counseled regarding signs and symptoms for which I believe and urgent re-evaluation would be necessary. P atient with good understanding of and agreement to plan and is comfortable going home at this time This document was made in part using voice recognition software. While efforts are made to proofread this document, sound alike and grammatical errors may occur. Departure - Departure Disposition: 01 Home, Self Care Clinical Impression: Flank pain, Pyelonephritis Condition: Good Instructions: ED UTI Pyelonephritis Male Follow-Up: your,doctor in 1 week [Other] Prescriptions: Oxycodone HCl/Acetaminophen [Percocet 5-325 mg Tablet] 1 - 2 each PO Q6H PRN #14 tablet MDD 6 tabs PRN Reason: pain Cefpodoxime Proxetil [Vantin] 200 mg PO Q12H #40 tablet Ondansetron Odt [Zofran] 4 mg TL Q6H PRN #10 tablet PRN Reason: Nausea / Vomiting Comments: Your prescriptions were sent to [facility] in [place]. Take all antibiotics until gone. Please follow-up with your doctor for further care. Your CT scan does not show any evidence of ureteral stones today. I am prescribing a short course of narcotic pain medication for you. These are potentially dangerous and addictive medications that should be used carefully. These medications may constipate you. Take an pfnd-ijr-qfynhlc stool softener (docusate) twice daily with plenty of water while taking these medications. If you go 24 hours without a bowel movement, take nlqd-dvs-zvaqhsq miralax, per package instructions. Do not drink or drive while taking these medications. If you received narcotic or sedating medications while in the emergency department, do not drive for 24 hours. Store this medication in a safe, secure place and out of reach of children. It is a violation of federal law to give or sell this medication to another person or to use in a manner other than prescribed. The ED will not refill narcotic prescriptions, including prescriptions lost or stolen. To dispose of unwanted medications: 1. [facility] at [address] in [place] has a medication drop box. They accept prescription medications (in pill form) Wednesday through Wednesday 9:00 a.m. to 5:00 p.m. 2. The [facility] [employer] accepts prescription medications (in pill form only) for disposal year round. Call for more information. 3. Contact the [facility] for the next [facility] sponsored prescription drug collection event. , [phone], or [phone];
[2022-10-15] MEDS ORDERED: LIDOCAINE-MPF 2% 5 ML VIAL ONE (22:45)
[2022-10-15 23:07] LABS: BASOPHILS # (AUTO) 0.1 10^3/uL (0.0-0.1); EOSINOPHILS # (AUTO) 0.3 10^3/uL (0.0-0.7); EOSINOPHILS % (AUTO) 2.6 %; HCT - HEMATOCRIT 50.8 % (42.0-52.0); LYMPHOCYTES # (AUTO) 3.6 10^3/uL (1.5-3.5); LYMPHOCYTES % (AUTO) 34.9 %; MEAN CORPUSCULAR HEMOGLOBIN 28.9 pg (27.0-31.0); MEAN CORPUSCULAR HGB CONC 33.5 g/dL (32.0-36.0); MEAN CORPUSCULAR VOLUME 86.4 fL (80.0-94.0); MEAN PLATELET VOLUME 10.4 fL (7.4-11.4); MONOCYTES # (AUTO) 0.8 10^3/uL (0.0-1.0); MONOCYTES % (AUTO) 7.7 %; NEUTROPHILS # (AUTO) 5.6 10^3/uL (1.5-6.6); NEUTROPHILS % (AUTO) 53.4 %; PLT - PLATELET COUNT 348 10^3/uL (130-450); RED BLOOD COUNT 5.88 10^6/uL (4.70-6.10); RED CELL DISTRIBUTION WIDTH 13.3 % (12.0-15.0); WHITE BLOOD COUNT 10.4 x10^3/uL (4.8-10.8)
[2022-10-15] MEDS ORDERED: oxyCODONE 5 MG TABLET PO STA ×2 (23:13→23:50)
[2022-10-15] MEDS ORDERED: ONDANSETRON 4 MG/2 ML VIAL IVP STA (23:13)
[2022-10-15 23:16] LABS: ALBUMIN 4.5 g/dL (3.2-5.5); ALBUMIN/GLOBULIN RATIO 1.3 (1.0-2.2); BILIRUBIN,TOTAL 0.5 mg/dL (0.2-1.0); CALCIUM 9.1 mg/dL (8.5-10.3); CREATININE 0.9 mg/dL (0.6-1.2); POTASSIUM 3.9 mmol/L (3.5-5.0)
[2022-10-15 23:36] VITALS: BP 144/85
--- NOTE | 2022-10-15 23:45 | CT Report ---
PROCEDURE: ABDOMEN/PELVIS WO INDICATIONS: L flank pain, h/o renal stones TECHNIQUE: Noncontrast 5 mm thick sections acquired from the diaphragms to the symphysis. 5 mm coronal and sagi ttal reformats were then performed. For radiation dose reduction, the following was used: automated exposure control, adjustment of mA and/or kV according to patient size. COMPARISON: CT abdomen pelvis 06/19/2022. FINDINGS: Image quality: There is mild motion artifact. Lung bases: There is mild dependant atelectasis. Heart: Heart is normal in size. URINARY: Right Kidney and Ureter: No stones or hydronephrosis. No hydroureter. Left Kidney and Ureter: No stones or hydronephrosis. No hydroureter. Bladder: Normal wall thickness. No stones. ABDOMEN: Liver: Noncontrast evaluation of the liver demonstrates no discrete mass. Gallbladder:Surgically absent. Biliary ducts: No biliary ductal dilatation. Pancreas: Unremarkable. Spleen: Normal in size. Adrenal Glands: No adrenal nodules. Stomach and Bowel: Stomach, small bowel loops, and colon are normal in caliber and wall thickness. T he appendix is normal in appearance. Peritoneum: No abnormal intraperitoneal fluid. No free air. Ventral Wall: No hernia. Abdominal Nodes: No retroperitoneal or mesenteric adenopathy by size criteria. Vessels: Aorta and inferior vena cava are normal in size. PELVIS: Pelvic Organs: Unremarkable. Pelvic Nodes: No enlarged lymph nodes. Miscellaneous: No inguinal hernias identified. Bones: Visualized osseous structures demonstrate no suspicious focal lesions. IMPRESSION: 1. No acute intra-abdominal abnormality. Specifically, no nephrolithiasis or obstructive uropathy. 2. No evidence of appendicitis. Reviewed by: Thai Taylor MD on 10/15/2022 11:54 PM PST Approved by: Thai Taylor MD on 10/15/2022 11:54 PM PST Station ID: [id number]
--- NOTE | 2022-10-16 08:43 | ED Physician Documentation ---
ED Addendum - Addendum Addendum: 10/16/22 08:42 pharmacy called and state does not cover vantin. Switched to omniceph 300bid .
== END 2022-10-16 00:05 | disposition home or self-care (01) ==
LOC: ED 20:59
DX: N12 Tubulo-interstitial nephritis, not specified as acute or chronic (principal); I10 Essential (primary) hypertension
CPT/HCPCS: 36415; 74176; 80053; 81001; 83690; 85025; 87086; 96374; 96375; 99284; 99285; A9270; J7040; 81003

== ENCOUNTER 2022-12-22 07:41 | Emergency (ER) | payer MEDICAID ==
--- NOTE | 2022-12-22 07:53 | ED Physician Documentation ---
PD HPI URI - Stated complaint Stated Complaint: COUGH/ CP - Chief complaint Chief Complaint: Resp - History obtained from History obtained from: Patient - History of Present Illness Timing - onset: How many days ago (2-3) Timing duration: Days (2-3) Timing details: Abrupt onset, Still present Associated symptoms: Chills, Nasal congestion, Productive cough (green/yellow sputum with faint wisps of blood at times.), Dyspnea. No: Bilateral edema Contributing factors: No: Sick contact Recently seen: Not recently seen Review of Systems Constitutional: reports: Chills, Myalgias, Fatigue. denies: Fever Nose: reports: Congestion. denies: Rhinorrhea / runny nose Throat: denies: Sore throat Cardiac: denies: Chest pain / pressure, Palpitations Respiratory: reports: Dyspnea, Cough GI: denies: Vomiting, Diarrhea Skin: denies: Rash, Lesions PD PAST MEDICAL HISTORY - Past Medical History Cardiovascular: Hypertension Respiratory: None Neuro: Headaches Endocrine/Autoimmune: None GI: Crohn's disease : Kidney stones HEENT: None Psych: None Musculoskeletal: None Derm: None - Past Surgical History Past Surgical History: Yes General: Cholecystectomy Ortho: Rotator cuff repair, Arthroscopic surgery - Present Medications Home Medications: Ambulatory Orders Medication Instructions Recorded Confirmed lisinopriL [Lisinopril] 10 mg PO DAILY 30 Days #30 tablet 08/04/21 10/15/22 Ondansetron Odt [Zofran Odt] 4 mg TL Q6H PRN #14 tablet 06/19/22 10/15/22 Cefpodoxime Proxetil [Vantin] 200 mg PO Q12H #40 tablet 10/15/22 Ondansetron Odt [Zofran] 4 mg TL Q6H PRN #10 tablet 10/15/22 Oxycodone HCl/Acetaminophen 1 - 2 each PO Q6H PRN #14 tablet 10/15/22 [Percocet 5-325 mg Tablet] MDD 6 tabs Albuterol Sulf [Ventolin Hfa 2 puffs INH QID 10 Days #1 each 12/22/22 Inhaler] Amoxicillin 500 mg PO TID #15 cap 12/22/22 Benzonatate [Tessalon] 100 mg PO TID PRN #20 cap 12/22/22 HYDROcod/ACETAM 5/325 [Brinklow 5/325] 1 ea PO Q6H PRN #14 tablet 12/22/22 - Allergies Allergies/Adverse Reactions: Allergies Allergy/AdvReac Type Severity Reaction Status Date / Time codeine AdvReac Unknown Verified 12/22/22 07:51 cyclobenzaprine AdvReac Cramps Verified 12/22/22 07:51 [From Flexeril] morphine AdvReac Cramps Verified 12/22/22 07:51 - Social History Does the pt smoke?: No Smoking Status: Never smoker Does the pt drink ETOH?: No Does the pt have substance abuse?: No - Immunizations Immunizations are current?: Yes Immunizations: TDAP current <10years - POLST Patient has POLST: No PD ED PE NORMAL - Vitals Vital signs reviewed: Yes - General General: Alert and oriented X 3, No acute distress, Well developed/nourished - HEENT HEENT: Pharynx benign - Neck Neck: Supple, no meningeal sign, No adenopathy - Cardiac Cardiac: RRR, No murmur - Respiratory Respiratory: Clear bilaterally - Abdomen Abdomen: Soft, Non tender, Other (obese) - Derm Derm: Normal color, Warm and dry - Extremities Extremities: No edema, No calf tenderness / cord - Neuro Neuro: Alert and oriented X 3, No motor deficit, Normal speech Results - Vitals Vitals: Oxygen O2 Source Room air - Rads (name of study) chest xray Relevant Findings:: Prelim report reviewed (low lung volumes. ), EMP independent interpretation of test (no infiltrates. low lung volumes. ), See rad report PD Medical Decision Making - ED course Complexity details: reviewed results (no infiltrates on CXR. ), considered differential (seems infectious with upper and bronchial resp symptoms. some symptoms could correspond to bacterial rather than viral etiology. ), d/w patient Departure - Departure Disposition: 01 Home, Self Care Clinical Impression: Upper respiratory infection Qualifiers: URI type: unspecified URI Qualified Code(s): J06.9 - Acute upper respiratory infection, unspecified Condition: Stable Record reviewed to determine appropriate education?: Yes Prescriptions: Amoxicillin 500 mg PO TID #15 cap HYDROcod/ACETAM 5/325 [Brink[place] 5/325] 1 ea PO Q6H PRN #14 tablet PRN Reason: Pain Benzonatate [Tessalon] 100 mg PO TID PRN #20 cap PRN Reason: Cough Albuterol Sulf [Ventolin Hfa Inhaler] 2 puffs INH QID 10 Days #1 each Comments: This has a good probability of being a viral infection with the symptoms you are having and the prominent cough. However the degree of sputum production and quality of it could have the suggestion of bacterial instead. For the general symptoms, we can try combination of albuterol inhaler along with benzonatate for cough and add in hydrocodone if needed for pains and cough. Stay well-hydrated. Tylenol or ibuprofen if needed for pains. Given some care through the sticks that could be bacterial, we can also add amoxicillin antibiotic for 5 days. I sent your prescriptions to [facility] pharmacy. Off work today and possibly tomorrow depending upon degree of illness. I am prescribing a short course of narcotic pain medication for you. These are potentially dangerous and addictive medications that should be used carefully. These medications may constipate you. Take an zssy-dny-vwpecfz stool softener such as docusate twice daily with plenty of water while taking these medications. If you go 24 hours without a bowel movement, take rvrg-axx-cyhadvx MiraLAX, per package instructions. Do not drink or drive while taking these medications. If you received narcotic or sedating medications while in the emergency department do not drive for 24 hours. Store this medication in a safe, secure place and out of reach of children. It is a violation of federal law to give or sell this medication to another person or to use in a manner other than prescribed. The ED will not refill narcotic prescriptions, including prescriptions lost or stolen. You can dispose of unwanted medications at the [facility]'s office or at several pharmacies such as [facility]. Forms: Activity restrictions Discharge Date/Time: 12/22/22 08:53
[2022-12-22] MEDS ORDERED: guaiFENesin/DEXTROMETHORPHAN 10 ML UDC PO STA (08:09)
[2022-12-22] MEDS ORDERED: BENZONATATE 100 MG CAPSULE PO STA (08:09)
--- NOTE | 2022-12-22 08:35 | XRAY Report ---
PROCEDURE: Chest 1 View X-Ray INDICATIONS: cough and dyspnea TECHNIQUE: One view of the chest was acquired. COMPARISON: 08/04/2021 FINDINGS: Surgical changes and devices: None. Lungs and pleura: Decreased lung volumes. Patchy mixed interstitial and potentially alveolar opaciti es in the infrahilar regions. No dense consolidation, effusion, or pneumothorax. Mediastinum: Stable cardiomediastinal contour at the upper limits of normal. Mild central vascular c ongestion, potentially accentuated by low lung volumes. Bones and chest wall: No suspicious bony lesions. Overlying soft tissues appear unremarkable. IMPRESSION: Low lung volumes which likely accentuates central vasculature and bibasilar interstitial markings. Th is can be seen in CHF, volume overload, or interstitial pneumonitis. Correlation with BNP is recommen ded. Reviewed by: Pastora Patel MD on 12/22/2022 8:34 AM PDT Approved by: Pastora Patel MD on 12/22/2022 8:34 AM PDT Station ID: [id number]
[2022-12-22 08:49] VITALS: BP 163/95
== END 2022-12-22 08:53 | disposition home or self-care (01) ==
LOC: ED 07:41
DX: J06.9 Acute upper respiratory infection, unspecified (principal)
CPT/HCPCS: 71045; 99283; 99284; A9270

== ENCOUNTER 2023-03-03 06:02 | Emergency (ER) | payer MEDICAID ==
[2023-03-03] MEDS ORDERED: SODIUM CHLORIDE 0.9% 1,000 ML IV STA ×2 (06:31→07:30)
[2023-03-03] MEDS ORDERED: ONDANSETRON 4 MG/2 ML VIAL IVP STA (06:31)
[2023-03-03 06:47] LABS: BASOPHILS # (AUTO) 0.1 10^3/uL (0.0-0.1); BASOPHILS % (AUTO) 0.9 %; EOSINOPHILS # (AUTO) 0.3 10^3/uL (0.0-0.7); EOSINOPHILS % (AUTO) 3.2 %; HCT - HEMATOCRIT 49.6 % (42.0-52.0); HGB - HEMOGLOBIN 16.9 g/dL (14.0-18.0); LYMPHOCYTES # (AUTO) 3.3 10^3/uL (1.5-3.5); MEAN CORPUSCULAR HEMOGLOBIN 28.5 pg (27.0-31.0); MEAN CORPUSCULAR HGB CONC 34.1 g/dL (32.0-36.0); MEAN CORPUSCULAR VOLUME 83.5 fL (80.0-94.0); MEAN PLATELET VOLUME 9.6 fL (7.4-11.4); MONOCYTES # (AUTO) 0.7 10^3/uL (0.0-1.0); MONOCYTES % (AUTO) 6.9 %; NEUTROPHILS # (AUTO) 5.4 10^3/uL (1.5-6.6); NEUTROPHILS % (AUTO) 54.5 %; PLT - PLATELET COUNT 326 10^3/uL (130-450); RED BLOOD COUNT 5.94 10^6/uL (4.70-6.10); RED CELL DISTRIBUTION WIDTH 12.8 % (12.0-15.0); WHITE BLOOD COUNT 9.8 x10^3/uL (4.8-10.8)
[2023-03-03 07:00] LABS: ALBUMIN 4.2 g/dL (3.2-5.5); ALBUMIN/GLOBULIN RATIO 1.2 (1.0-2.2); BILIRUBIN,TOTAL 0.6 mg/dL (0.2-1.0); CALCIUM 9.2 mg/dL (8.5-10.3); POTASSIUM 3.8 mmol/L (3.5-5.0); TOTAL PROTEIN 7.6 g/dL (6.7-8.2)
--- NOTE | 2023-03-03 07:13 | ED Physician Documentation ---
PD HPI ABD PAIN - Stated complaint Stated Complaint: NAUSEA - Chief complaint Chief Complaint: Abd Pain - History obtained from History obtained from: Patient - History of Present Illness Timing - onset: How many days ago (3) Timing - duration: Days (3) Timing - details: Gradual onset, Still present Quality: Cramping, Aching, Pain Location: All over / everywhere, Periumbilical Radiation: Lower back, Right flank. No: Chest Improved by: BM (with loose to watery stool, some mucous.) Worsened by: Eating Associated symptoms: Nausea, Diarrhea, Hematochezia, Loss of appetite. No: Fever, Vomiting, Constipation, Dysuria Similar symptoms before: Diagnosis (prior history of Crohns disease with previous episode about 5 years ago or more. Is not currently on any prevntive meds, nor active treatment.) Recently seen: Not recently seen Review of Systems Constitutional: reports: Myalgias. denies: Fever, Chills Nose: denies: Rhinorrhea / runny nose, Congestion Throat: denies: Sore throat Respiratory: denies: Cough GI: reports: Abdominal Pain, Nausea, Vomiting, Diarrhea. denies: Hematemesis, Bloody / black stool PD PAST MEDICAL HISTORY - Past Medical History Cardiovascular: Hypertension Respiratory: None Neuro: Headaches Endocrine/Autoimmune: None GI: Crohn's disease : Kidney stones HEENT: None Psych: None Musculoskeletal: None Derm: None - Past Surgical History Past Surgical History: Yes General: Cholecystectomy Ortho: Rotator cuff repair, Arthroscopic surgery - Present Medications Home Medications: Ambulatory Orders Medication Instructions Recorded Confirmed lisinopriL [Lisinopril] 10 mg PO DAILY 30 Days #30 tablet 08/04/21 10/15/22 Ondansetron Odt [Zofran Odt] 4 mg TL Q6H PRN #14 tablet 06/19/22 10/15/22 Cefpodoxime Proxetil [Vantin] 200 mg PO Q12H #40 tablet 10/15/22 Ondansetron Odt [Zofran] 4 mg TL Q6H PRN #10 tablet 10/15/22 Oxycodone HCl/Acetaminophen 1 - 2 each PO Q6H PRN #14 tablet 10/15/22 [Percocet 5-325 mg Tablet] MDD 6 tabs Albuterol Sulf [Ventolin Hfa 2 puffs INH QID 10 Days #1 each 12/22/22 Inhaler] Amoxicillin 500 mg PO TID #15 cap 12/22/22 Benzonatate [Tessalon] 100 mg PO TID PRN #20 cap 12/22/22 HYDROcod/ACETAM 5/325 [[place] 5/325] 1 ea PO Q6H PRN #14 tablet 12/22/22 Dicyclomine [Bentyl] 10 mg PO TID PRN #20 cap 03/03/23 HYDROcod/ACETAM 5/325 [[place] 5/325] 1 ea PO Q6H PRN #15 tablet 03/03/23 Promethazine [Phenergan] 25 mg PO Q6H PRN #20 tab 03/03/23 dexAMETHasone [Decadron] 4 mg PO DAILY #7 tablet 03/03/23 - Allergies Allergies/Adverse Reactions: Allergies Allergy/AdvReac Type Severity Reaction Status Date / Time codeine AdvReac Unknown Verified 03/03/23 06:19 cyclobenzaprine AdvReac Cramps Verified 03/03/23 06:19 [From Flexeril] morphine AdvReac Cramps Verified 03/03/23 06:19 - Social History Does the pt smoke?: No Smoking Status: Never smoker Does the pt drink ETOH?: No Does the pt have substance abuse?: No - Immunizations Immunizations are current?: Yes Immunizations: TDAP current <10years - POLST Patient has POLST: No PD ED PE NORMAL - Vitals Vital signs reviewed: Yes - General General: Alert and oriented X 3, No acute distress, Well developed/nourished - Neck Neck: Supple, no meningeal sign, No adenopathy - Cardiac Cardiac: RRR, No murmur - Respiratory Respiratory: Clear bilaterally - Abdomen Abdomen: Normal bowel sounds, Soft, Non distended, No organomegaly, Other Results - Vitals Vitals: Vital Signs - 24 hr 03/03/23 03/03/23 03/03/23 06:16 06:19 08:19 Temperature 36.8 C Heart Rate 91 84 98 Respiratory 17 18 Rate Blood Pressure 168/122 H 169/110 H 152/107 H O2 Saturation 100 96 98 Oxygen O2 Source Room air - Labs Labs: Laboratory Tests 03/03/23 03/03/23 06:43 06:43 WBC 9.8 RBC 5.94 Hgb 16.9 Hct 49.6 MCV 83.5 MCH 28.5 MCHC 34.1 RDW 12.8 Plt Count 326 MPV 9.6 Neut # (Auto) 5.4 Lymph # (Auto) 3.3 [place] # (Auto) 0.7 Eos # (Auto) 0.3 Baso # (Auto) 0.1 Absolute Nucleated RBC 0.00 Nucleated RBC % 0.0 Sodium 141 Potassium 3.8 Chloride 106 Carbon Dioxide 28 Anion Gap 7.0 BUN 15 Creatinine 1.0 Estimated GFR (MDRD) 85 L Glucose 102 H Calcium 9.2 Total Bilirubin 0.6 AST 20 ALT 35 Alkaline Phosphatase 71 Total Protein 7.6 Albumin 4.2 Globulin 3.4 Albumin/Globulin Ratio 1.2 Lipase 45 - Rads (name of study) abd/pelvic CT Relevant Findings:: Prelim report reviewed, EMP independent interpretation of test, See rad report PD Medical Decision Making - ED course Complexity details: reviewed results (no acute process on CT. Labs are actually good too. But pain is c/w Crohns flareup and not another alternate diagnosis. ), re-evaluated patient, considered differential (consider viral GE, appendicitis, colitis, Crohns exacer, UTI, kidney stone.), d/w patient ED course: The patient was given IV fluid, toradol, antiemetic, and pain meds. Subsequently also given decadron steroid dose thinking pottential Crohns. He is feeling improved regarding pain and nausea. Wanting to be discharged. Departure - Departure Disposition: 01 Home, Self Care Clinical Impression: Diffuse abdominal pain, Colitis Vomiting Qualifiers: Vomiting type: bilious vomiting Nausea presence: with nausea Qualified Code(s): R11.14 - Bilious vomiting Condition: Stable Record reviewed to determine appropriate education?: Yes Instructions: ED Abdominal Pain Excl Appendx Male Prescriptions: Dicyclomine [Bentyl] 10 mg PO TID PRN #20 cap PRN Reason: Abdominal Pain dexAMETHasone [Decadron] 4 mg PO DAILY #7 tablet HYDROcod/ACETAM 5/325 [[place] 5/325] 1 ea PO Q6H PRN #15 tablet PRN Reason: Pain Promethazine [Phenergan] 25 mg PO Q6H PRN #20 tab PRN Reason: Nausea / Vomiting Comments: Your CT scan is normal showing in particular normal appendix and no signs of kidney stones or kidney swelling. The intestines appeared normal without any localized area of significant inflammation and no obstruction pattern, abscesses, perforation. Given your history of Crohn's and your several days now of general pain and vomiting, it would be reasonable to treat as a possible Crohn's episode with some steroid Decadron daily for a week and dicyclomine antispasmodic if needed for spasms. To that add Phenergan if needed for nausea and Tylenol if needed for pain. To that add hydrocodone if needed for worse pain. I sent your prescriptions to [facility] pharmacy. Small frequent fluids today with minimal solid foods. Progress to more solid food but particularly starches and carbohydrates type (rice pastas breads and easier to digest foods). I would anticipate improvement over the next 1 to 3 days with steady improvement. See if you are able to progress to normal diet. Return to the ER if needed or follow-up with primary care/walk-in if not completely resolved over the next 3 to 5 days. I am prescribing a short course of narcotic pain medication for you. These are potentially dangerous and addictive medications that should be used carefully. These medications may constipate you. Take an xpot-xvs-hzfmzgn stool softener such as docusate twice daily with plenty of water while taking these medications. If you go 24 hours without a bowel movement, take kele-mne-cpvayxq MiraLAX, per package instructions. Do not drink or drive while taking these medications. If you received narcotic or sedating medications while in the emergency department do not drive for 24 hours. Store this medication in a safe, secure place and out of reach of children. It is a violation of federal law to give or sell this medication to another person or to use in a manner other than prescribed. The ED will not refill narcotic prescriptions, including prescriptions lost or stolen. You can dispose of unwanted medications at the [facility]'s office or at several pharmacies such as [facility]. Discharge Date/Time: 03/03/23 08:47
[2023-03-03] MEDS ORDERED: DROPERIDOL 5 MG/2 ML VIAL IVP STA (07:28)
[2023-03-03] MEDS ORDERED: KETOROLAC 15 MG/ML VIAL IVP STA (07:28)
[2023-03-03] MEDS ORDERED: HYDROmorphone 1 MG/ML CARPUJECT IVP STA (07:28)
[2023-03-03] MEDS ORDERED: iohexoL-300 100 ML VIAL ONE (07:37)
[2023-03-03] MEDS ORDERED: iohexoL-300 100 ML VIAL IVP ONE (07:55)
--- NOTE | 2023-03-03 08:15 | CT Report ---
PROCEDURE: ABDOMEN/PELVIS W INDICATIONS: abd pain 4 days; h/o crohns CONTRAST: 100ml Omni 300 TECHNIQUE: After the administration of IV contrast, 5 mm thick sections acquired from the diaphragms to the symp hysis. 5 mm thick coronal and sagittal reformats were acquired. For radiation dose reduction, the f ollowing was used: automated exposure control, adjustment of mA and/or kV according to patient size. COMPARISON: CT abdomen and pelvis without, 10/15/2022. CT abdomen and pelvis with, 06/19/2022. FINDINGS: Image quality: Excellent. Lung bases and heart: There are respiratory motion artifact. Small hiatal hernia. Liver: No solid mass. Mild hepatic steatosis. Gallbladder and biliary tree: Surgically absent. Spleen: No splenomegaly. Pancreas: No pancreatic ductal dilation. Adrenals: No adrenal nodule. Kidneys and ureters: No hydronephrosis. No renal cystic lesion which requires follow up. No solid mas s. Bowel and peritoneum: No bowel distension. No pathologic free fluid. Appendix is normal. The terminal ileum is unremarkable. Lymph nodes: No central or retroperitoneal adenopathy. Vessels: No infrarenal aortic aneurysm. PELVIS Reproductive organs: Unremarkable. Bladder: No abnormal wall thickening, accounting for underdistension. Pelvic lymph nodes: No pelvic adenopathy by size criteria. Bones: No aggressive osseous abnormality. Other: No significant ventral or inguinal hernia. IMPRESSION: 1. No acute abnormality central pelvis. 2. Mild hepatic steatosis. Reviewed by: Josué Steven MD on 03/03/2023 8:13 AM PDT Approved by: Josué Steven MD on 03/03/2023 8:13 AM PDT Station ID: [id number]
[2023-03-03 08:39] VITALS: BP 152/107
[2023-03-03] MEDS ORDERED: DEXAMETHASONE 10 MG/ML VIAL IVP STA (08:40)
== END 2023-03-03 08:47 | disposition home or self-care (01) ==
LOC: ED 06:02
DX: K52.9 Noninfective gastroenteritis and colitis, unspecified (principal); R10.84 Generalized abdominal pain; R11.14 Bilious vomiting; I10 Essential (primary) hypertension; Z79.899 Other long term (current) drug therapy
CPT/HCPCS: 36415; 74177; 80053; 83690; 85025; 96374; 96375; 99284; J1170; Q9967

== ENCOUNTER 2023-10-11 10:02 | Emergency (ER) | payer MEDICAID ==
[2023-10-11 10:46] LABS: BASOPHILS # (AUTO) 0.1 10^3/uL (0.0-0.1); BASOPHILS % (AUTO) 0.5 %; EOSINOPHILS # (AUTO) 0.2 10^3/uL (0.0-0.7); EOSINOPHILS % (AUTO) 1.9 %; HCT - HEMATOCRIT 49.7 % (42.0-52.0); HGB - HEMOGLOBIN 17.1 g/dL (14.0-18.0); LYMPHOCYTES # (AUTO) 2.8 10^3/uL (1.5-3.5); LYMPHOCYTES % (AUTO) 24.8 %; MEAN CORPUSCULAR HEMOGLOBIN 28.6 pg (27.0-31.0); MEAN CORPUSCULAR HGB CONC 34.4 g/dL (32.0-36.0); MEAN CORPUSCULAR VOLUME 83.1 fL (80.0-94.0); MEAN PLATELET VOLUME 9.7 fL (7.4-11.4); MONOCYTES # (AUTO) 1.1 10^3/uL (0.0-1.0); MONOCYTES % (AUTO) 9.5 %; NEUTROPHILS # (AUTO) 7.1 10^3/uL (1.5-6.6); PLT - PLATELET COUNT 386 10^3/uL (130-450); RED BLOOD COUNT 5.98 10^6/uL (4.70-6.10); RED CELL DISTRIBUTION WIDTH 13.2 % (12.0-15.0); WHITE BLOOD COUNT 11.3 x10^3/uL (4.8-10.8)
[2023-10-11 10:54] LABS: BILIRUBIN,URINE NEGATIVE (NEGATIVE); GLUCOSE, URINE (UA) NEGATIVE (NEGATIVE); KETONES,URINE (UA) NEGATIVE (NEGATIVE); LEUKOCYTE ESTERASE, URINE NEGATIVE (NEGATIVE); NITRITE,URINE NEGATIVE (NEGATIVE); OCCULT BLOOD,URINE NEGATIVE (NEGATIVE); PROTEIN,URINE NEGATIVE (NEGATIVE); UROBILINOGEN,URINE 0.2 (NORMAL) E.U./dL (NORMAL)
[2023-10-11 10:59] LABS: ALBUMIN 4.6 g/dL (3.2-5.5); ALBUMIN/GLOBULIN RATIO 1.5 (1.0-2.2); BILIRUBIN,TOTAL 0.7 mg/dL (0.2-1.0); CALCIUM 9.8 mg/dL (8.5-10.3); POTASSIUM 3.4 mmol/L (3.5-4.5); TOTAL PROTEIN 7.7 g/dL (6.4-8.9)
[2023-10-11 11:01] LABS: CLARITY,URINE CLEAR (CLEAR)
[2023-10-11] MEDS ORDERED: iohexoL-300 100 ML VIAL ONE (13:24)
--- NOTE | 2023-10-11 13:25 | ED Physician Documentation ---
History of Present Illness - Stated complaint Stated Complaint: RT SIDE PX,NAUSEA - Chief complaint Chief Complaint: Abd Pain - History obtained from History obtained from: Patient - History of Present Illness Timing: How many days ago (3) Pain level max: 5 Pain level now: 4 - Additonal information Additional information: 38-year-old male with a history of Crohn's disease who is not currently being treated for his Crohn's disease. He states he has had nausea for the past 2 days. Diffuse crampy abdominal pain. No fevers. No chills. No diarrhea or constipation. He states he went to the walk-in clinic today and was sent here to "rule out appendicitis". No rhinorrhea, cough, congestion. No blood in the stool. No urinary symptoms. Review of Systems Constitutional: denies: Fever, Chills GI: denies: Vomiting, Diarrhea Skin: denies: Rash Musculoskeletal: denies: Neck pain, Back pain Neurologic: denies: Headache PD PAST MEDICAL HISTORY - Past Medical History Past Medical History: Yes Cardiovascular: Hypertension Respiratory: None Neuro: Headaches Endocrine/Autoimmune: None GI: Crohn's disease : Kidney stones HEENT: None Psych: None Musculoskeletal: None Derm: None - Past Surgical History Past Surgical History: Yes General: Cholecystectomy Ortho: Rotator cuff repair, Arthroscopic surgery - Present Medications Home Medications: Ambulatory Orders Medication Instructions Recorded Confirmed lisinopriL [Lisinopril] 10 mg PO DAILY 30 Days #30 tablet 08/04/21 10/11/23 Chlorthalidone 25 mg ORAL DAILY 10/11/23 10/11/23 Dicyclomine [Bentyl] 10 mg PO QID PRN #30 cap 10/11/23 Ondansetron Odt [Zofran] 4 mg TL Q6H PRN #10 tablet 10/11/23 Oxycodone HCl/Acetaminophen 1 - 2 each PO Q6H PRN #14 tablet 10/11/23 [Percocet 5-325 mg Tablet] MDD 6 tabs amLODIPine [Norvasc] 5 mg PO DAILY 10/11/23 10/11/23 predniSONE [Deltasone] 10 mg PO [id number] #42 tab 10/11/23 - Allergies Allergies/Adverse Reactions: Allergies Allergy/AdvReac Type Severity Reaction Status Date / Time codeine AdvReac Unknown Verified 10/11/23 10:22 cyclobenzaprine AdvReac Cramps Verified 10/11/23 10:22 [From Flexeril] morphine AdvReac Cramps Verified 10/11/23 10:22 - Social History Does the pt smoke?: No Smoking Status: Never smoker Does the pt drink ETOH?: No Does the pt have substance abuse?: No - Immunizations Immunizations are current?: Yes Immunizations: TDAP current <10years - POLST Patient has POLST: No PD ED PE NORMAL - Vitals Vital signs reviewed: Yes - General General: Alert and oriented X 3, No acute distress - HEENT HEENT: Moist mucous membranes - Neck Neck: Supple, no meningeal sign - Cardiac Cardiac: RRR - Respiratory Respiratory: No respiratory distress, Clear bilaterally - Abdomen Abdomen: Soft, Non distended, Other (Mild tenderness to palpation epigastric. Otherwise benign abdominal exam. No tenderness at McBurney's point. No peritoneal signs) - Back Back: No CVA TTP, No spinal TTP - Derm Derm: Warm and dry - Neuro Neuro: Alert and oriented X 3 Results - Vitals Vitals: Vital Signs - 24 hr 10/11/23 10/11/23 10/11/23 10:22 13:18 15:26 Temperature 36.8 C Heart Rate 108 H 101 H 101 H Respiratory 20 20 18 Rate Blood Pressure 114/79 120/88 H 121/70 O2 Saturation 96 99 100 Oxygen O2 Source Room air - Labs Labs: Laboratory Tests 10/11/23 10/11/23 10/11/23 10:36 10:40 10:40 WBC 11.3 H RBC 5.98 Hgb 17.1 Hct 49.7 MCV 83.1 MCH 28.6 MCHC 34.4 RDW 13.2 Plt Count 386 MPV 9.7 Neut # (Auto) 7.1 H Lymph # (Auto) 2.8 [place] # (Auto) 1.1 H Eos # (Auto) 0.2 Baso # (Auto) 0.1 Absolute Nucleated RBC 0.00 Nucleated RBC % 0.0 Sodium 136 Potassium 3.4 L Chloride 99 L Carbon Dioxide 28 Anion Gap 9.0 BUN 17 Creatinine 1.0 Estimated GFR (MDRD) 84 L Glucose 98 Calcium 9.8 Total Bilirubin 0.7 AST 14 ALT 27 Alkaline Phosphatase 70 Total Protein 7.7 Albumin 4.6 Globulin 3.1 Albumin/Globulin Ratio 1.5 Lipase 27 Urine Color STRAW Urine Clarity CLEAR Urine pH 6.0 Ur Specific [place] 1.020 Urine Protein NEGATIVE Urine Glucose (UA) NEGATIVE Urine Ketones NEGATIVE Urine Occult Blood NEGATIVE Urine Nitrite NEGATIVE Urine Bilirubin NEGATIVE Urine Urobilinogen 0.2 (NORMAL) Ur Leukocyte Esterase NEGATIVE Ur Microscopic Review NOT INDICATED Urine Culture Comments NOT INDICATED - Rads (name of study) CT abdomen pelvis Relevant Findings:: Final report received, See rad report PD Medical Decision Making - ED course Complexity details: reviewed results, re-evaluated patient, considered differential, d/w patient ED course: Patient is well-appearing, nontoxic. Afebrile. Pain well-controlled in the emergency department. His symptoms sound more consistent with a Crohn's flare. CT scan does not show any evidence of appendicitis. CT of the abdomen pelvis is unremarkable. Minimally elevated white blood cell count. Otherwise urinalysis and labs are mainly unremarkable. We will place on pain medication, steroids and nausea medication for home. Recommend that he follow-up with his PCP to discuss medications for Crohn's disease. Patient also stated that Bentyl had worked well for him in the past. Will place him back on this as well. Patient is tolerating p.o. without difficulty here. Abdomen soft, nontender nondistended on serial exam. Patient counseled regarding signs and symptoms for which I believe and urgent re-evaluation would be necessary. Patient with good understanding of and agreement to plan and is comfortable going home at this time This document was made in part using voice recognition software. While efforts are made to proofread this document, sound alike and grammatical errors may occur. Departure - Departure Disposition: 01 Home, Self Care Clinical Impression: Acute Crohn's disease Qualifiers: Digestive disease complication type: without complication Qualified Code(s): K50.90 - Crohn's disease, unspecified, without complications Abdominal pain Qualifiers: Abdominal location: unspecified location Qualified Code(s): R10.9 - Unspecified abdominal pain Condition: Good Instructions: Disease Crohn Dc, ED Inflam Bowel Disease Crohn, ED Abdominal Pain Unkn Cause Male Follow-Up: Linda Oglesby MD [Primary Care Provider] - Within 1 week Prescriptions: Dicyclomine [Bentyl] 10 mg PO QID PRN #30 cap PRN Reason: Abdominal Pain predniSONE [Deltasone] 10 mg PO [id number] #42 tab Oxycodone HCl/Acetaminophen [Percocet 5-325 mg Tablet] 1 - 2 each PO Q6H PRN #14 tablet MDD 6 tabs PRN Reason: pain Ondansetron Odt [Zofran] 4 mg TL Q6H PRN #10 tablet PRN Reason: Nausea / Vomiting Comments: Your CT scan does not show any acute abnormalities today. Your symptoms are suspicious for a Crohn's flare. I have sent your prescriptions to [facility] in [place]. Make sure you are drinking plenty of fluids at home. Please return if you worsen. Please follow-up with your doctor for further care. I am prescribing a short course of narcotic pain medication for you. These are potentially dangerous and addictive medications that should be used carefully. These medications may constipate you. Take an pgje-kbo-olorjdx stool softener (docusate) twice daily with plenty of water while taking these medications. If you go 24 hours without a bowel movement, take kysu-tlj-vvbojjw miralax, per package instructions. Do not drink or drive while taking these medications. If you received narcotic or sedating medications while in the emergency department, do not drive for 24 hours. Store this medication in a safe, secure place and out of reach of children. It is a violation of federal law to give or sell this medication to another person or to use in a manner other than prescribed. The ED will not refill narcotic prescriptions, including prescriptions lost or stolen. To dispose of unwanted medications: 1. [facility] [address] in [place] has a medication drop box. They accept prescription medications (in pill form) Wednesday through Wednesday 9:00 a.m. to 5:00 p.m. 2. The [facility] [employer] accepts prescription medications (in pill form only) for disposal year round. Call for more inf ormation. 3. Contact the [facility] for the next [facility] sponsored prescription drug collection event. , [phone], or [phone]; Forms: PCP List, Activity restrictions Discharge Date/Time: 10/11/23 15:49
[2023-10-11] MEDS: ONDANSETRON 4 MG/2 ML VIAL IVP STA (13:56)
[2023-10-11] MEDS: HYDROmorphone 1 MG/ML CARPUJECT IVP STA (13:56)
[2023-10-11] MEDS: SODIUM CHLORIDE 0.9% 1,000 ML IV STA (13:57)
[2023-10-11] MEDS: iohexoL-300 100 ML VIAL IVP ONE (14:20)
--- NOTE | 2023-10-11 15:27 | CT Report ---
PROCEDURE: Abdomen/Pelvis W INDICATIONS: RLQ abd pain CONTRAST: Omni 300 100ml TECHNIQUE: After the administration of intravenous contrast, a CT scan of the abdomen and pelvis was performed. Images were recorded and evaluated at appropriate window settings. Reformats: coronal and sagittal. F or radiation dose reduction, the following was used: automated exposure control, adjustment of mA and /or kV according to patient size. COMPARISON: CT abdomen pelvis 02/23/2023. FINDINGS: Image quality: Diagnostic. Lower chest: Unremarkable. Liver: No solid mass. Gallbladder and biliary tree: Surgically absent. No biliary dilation, accounting for post-cholecystec denilson state. Spleen: No splenomegaly. Pancreas: No pancreatic ductal dilation. Adrenals: No adrenal nodule. Kidneys and ureters: No hydronephrosis. No renal cystic lesion which requires follow up. No solid mas s. Stomach, bowel and peritoneum: No bowel distension. No pathologic free fluid. Normal caliber appendix . Lymph nodes: No central or retroperitoneal adenopathy. Vessels: No infrarenal aortic aneurysm. PELVIS Reproductive organs: Unremarkable. Bladder: No abnormal wall thickening, accounting for underdistention. Pelvic lymph nodes: No pelvic adenopathy by size criteria. Bones: No acute or suspicious osseous abnormality. Other: No significant ventral or inguinal hernia. IMPRESSION: No acute findings in the abdomen or pelvis to explain patient's symptoms. Reviewed by: Indira Akers MD on 10/11/2023 3:25 PM PST Approved by: Indira Akers MD on 10/11/2023 3:25 PM PST Station ID: [id number]
[2023-10-11 15:34] VITALS: BP 121/70; O2SAT 100
[2023-10-11] MEDS: oxyCODONE 5 MG TABLET PO STA (15:47)
== END 2023-10-11 15:49 | disposition home or self-care (01) ==
LOC: ED 10:02
DX: K50.90 Crohn's disease, unspecified, without complications (principal); R10.9 Unspecified abdominal pain; I10 Essential (primary) hypertension
CPT/HCPCS: 36415; 74177; 80053; 81003; 83690; 85025; 96374; 99283; 99284; A9270; J1170; Q9967; 81001; 87086

== ENCOUNTER 2023-11-26 10:32 | Emergency (ER) | payer MEDICAID ==
--- NOTE | 2023-11-26 11:58 | XRAY Report ---
PROCEDURE: Shoulder 2+V LT INDICATIONS: pain/pop TECHNIQUE: 3 views of the shoulder were acquired. COMPARISON: None. FINDINGS: Bones: No fractures or dislocations. No suspicious bony lesions. Visualized ribs appear intact. Soft tissues: No suspicious soft tissue calcifications. The visualized lungs are within normal limi ts. IMPRESSION: No acute bony abnormality. Reviewed by: Theron Puente MD on 11/26/2023 11:56 AM PDT Approved by: Theron Puente MD on 11/26/2023 11:56 AM PDT Station ID: [id number]
--- NOTE | 2023-11-26 12:08 | ED Physician Documentation ---
PD HPI UPPER EXT INJURY - Stated complaint Stated Complaint: LT SHOULDER PX - Chief complaint Chief Complaint: Trauma Ext - History obtained from History obtained from: Patient - Additonal information Additional information: Patient is a 38-year-old male presenting for evaluation of left shoulder pain. Patient states that he was lifting a 5 gallon bucket of Water over his head At work earlier today when he felt a pop in his left shoulder and has been having pain in the area since. Denies prior injuries or trauma. Does not take a blood thinner. Denies injuries elsewhere.No numbness or weakness. Review of Systems Constitutional: denies: Fever Cardiac: denies: Chest pain / pressure Respiratory: denies: Dyspnea GI: denies: Abdominal Pain Musculoskeletal: reports: Extremity pain Neurologic: denies: Headache PD PAST MEDICAL HISTORY - Past Medical History Cardiovascular: Hypertension Respiratory: None Neuro: Headaches Endocrine/Autoimmune: None GI: Crohn's disease : Kidney stones HEENT: None Psych: None Musculoskeletal: None Derm: None - Past Surgical History Past Surgical History: Yes General: Cholecystectomy Ortho: Rotator cuff repair, Arthroscopic surgery - Present Medications Home Medications: Ambulatory Orders Medication Instructions Recorded Confirmed lisinopriL [Lisinopril] 10 mg PO DAILY 30 Days #30 tablet 08/04/21 11/26/23 Chlorthalidone 25 mg ORAL DAILY 10/11/23 11/26/23 Dicyclomine [Bentyl] 10 mg PO QID PRN #30 cap 10/11/23 11/26/23 amLODIPine [Norvasc] 5 mg PO DAILY 10/11/23 11/26/23 - Allergies Allergies/Adverse Reactions: Allergies Allergy/AdvReac Type Severity Reaction Status Date / Time codeine AdvReac Unknown Verified 10/11/23 10:22 cyclobenzaprine AdvReac Cramps Verified 10/11/23 10:22 [From Flexeril] morphine AdvReac Cramps Verified 10/11/23 10:22 - Social History Does the pt smoke?: No Smoking Status: Never smoker Does the pt drink ETOH?: No Does the pt have substance abuse?: No - Immunizations Immunizations are current?: Yes Immunizations: TDAP current <10years - POLST Patient has POLST: No PD ED PE NORMAL - General General: Alert and oriented X 3, No acute distress, Well developed/nourished - HEENT HEENT: Atraumatic, Moist mucous membranes, Pharynx benign - Neck Neck: Supple, no meningeal sign, No bony TTP - Cardiac Cardiac: RRR, Strong equal pulses - Respiratory Respiratory: No respiratory distress - Extremities Extremities: No deformity, Other (Pain on range of motion of left shoulder, mos tly with abduction past 90 degrees. Able to touch right shoulder with his left hand although with the pain, normal range of motion at left elbow, strong radial pulse, sensation and motor grossly intact) - Neuro Neuro: Alert and oriented X 3, No motor deficit, No sensory deficit, Normal speech Results - Vitals Vitals: Vital Signs - 24 hr 11/26/23 11/26/23 10:43 12:14 Temperature 36.8 C 36.7 C Heart Rate 105 H 69 Respiratory 20 18 Rate Blood Pressure 134/90 H 147/89 H O2 Saturation 98 97 Oxygen O2 Source Room air PD Medical Decision Making - ED course Complexity details: reviewed results, d/w patient ED course: Patient with left shoulder pain after hearing a pop when he reached above his head earlier today while lifting something heavy. Neurovascularly intact with no visible deformities. X-ray was obtained and reviewed which was negative for fracture or dislocation. Patient given sling and counseled on continued supportive care. He is aware of need for follow-up with primary care if symptoms or not improving and advised on strict return precautions. Departure - Departure Disposition: 01 Home, Self Care Clinical Impression: Injury of left shoulder, Left shoulder strain Condition: Stable Instructions: ED Sprain Shoulder Comments: Your x-ray does not show a fracture or dislocation. However you may have injuries to underlying structures such as rotator cuff muscles, ligaments. We have given you a sling for comfort. Please get your arm out of the sling several times a day and do range of motion exercises as I have described. Continue with anti-inflammatory such as acetaminophen or ibuprofen. I would recommend follow-up with your primary care doctor if your symptoms or not impr oving. Forms: PCP List Discharge Date/Time: 11/26/23 12:24
[2023-11-26 12:21] VITALS: BP 147/89; O2SAT 97
== END 2023-11-26 12:24 | disposition home or self-care (01) ==
LOC: ED 10:32
DX: S46.912A Strain of unspecified muscle, fascia and tendon at shoulder and upper arm level, left arm, initial encounter (principal); X50.0XXA Overexertion from strenuous movement or load, initial encounter; Y93.89 Activity, other specified; Y99.0 Civilian activity done for income or pay
CPT/HCPCS: 99283